=== PATIENT | female | born 1940 | race Caucasian/White ===

== ENCOUNTER 2018-04-19 16:54 | Outpatient (CLI) | payer MEDICARE, SELFPAY ==
[2018-04-22 11:07] LABS: SS-B (La) Ab, IgG 5.5 Units (<20)
[2018-04-22 11:08] LABS: SS-A Antibody 4.9 Units (<20)
== END 2018-04-19 17:14 ==
PROVIDERS: PCP Family Medicine; Visit Provider Otolaryngology Otolaryngology/Facial Plastic Surgery
DX: R68.2 Dry mouth, unspecified (principal); K12.0 Recurrent oral aphthae; R13.12 Dysphagia, oropharyngeal phase
CPT/HCPCS: 36415; 86235

== ENCOUNTER 2018-04-26 00:20 | Outpatient (CLI) | payer MEDICARE, SELFPAY ==
[2018-04-26] MEDS: Barium Sulfate 60% W/V 355 ML BTL PO (12:26)
== END 2018-04-26 00:40 ==
PROVIDERS: PCP Family Medicine; Visit Provider Physician Assistant
DX: R13.10 Dysphagia, unspecified (principal)
CPT/HCPCS: 74220; J3490

== ENCOUNTER 2018-04-26 02:45 | Outpatient (CLI) | payer MEDICARE, OTHER, SELFPAY | END 2018-04-26 03:05 | PROVIDERS: PCP Family Medicine | DX: R13.11 Dysphagia, oral phase (principal) | CPT/HCPCS: 92611; G8996; 74220; J3490 ==

== ENCOUNTER 2018-08-06 16:51 | Emergency (ER) | payer MEDICARE, OTHER, SELFPAY ==
[2018-08-06 16:57] VITALS: BP 134/92; PULSE 67; RESP 18; TEMP 36.7; O2SAT 100
--- NOTE | 2018-08-06 17:26 | ED.GENADUL_ITS ---
Discharge Plan Disposition Patient Disposition: HOME Condition: Improving Discharge Details Chief Complaint: RespSymp Clinical Impression: Acute bronchitis Primary Care Provider: Dylan Kumari ED Provider: Michaelle Grider Home Meds and New Rx's Prescriptions: New prednisone 20 mg tablet 20 mg PO DAILY Qty: 9 RF: 0 doxycycline hyclate 100 mg tablet 100 mg PO BID 5 Days Qty: 10 RF: 0 Continued famciclovir 500 mg tablet 500 mg PO Q8H Qty: 21 RF: 0 Shingrix Adjuvant Component-PF suspension 0.5 ml IM DAILY Qty: 0.5 RF: 1 cyclobenzaprine 10 MG tablet 10 mg PO TID PRN Qty: 30 RF: 5 loratadine 10 MG tablet,disintegrating 10 mg PO PRN PRNQty: 30 RF: 11 cyanocobalamin (vitamin B-12) [Vitamin B-12] 1,000 MCG tablet 1,000 mcg PO DAILY RF: 0 methylphenidate HCl 20 MG tablet 20 mg PO BID PRN Qty: 60 RF: 0 ranitidine HCl 150 MG capsule 150 mg PO PRN PRNQty: 180 RF: 3 esomeprazole magnesium [Nexium] 40 MG capsule,delayed release(DR/EC) 40 mg PO DAILY RF: 0 Narcan 4 MG spray,non-aerosol 4 mg NS PRN Qty: 2 RF: 0 amitriptyline 25 MG tablet 25 - 100 mg PO HS PRNQty: 120 RF: 11 fluoxetine [Prozac] 20 MG capsule 20 mg PO DAILY Qty: 90 RF: 3 tramadol 50 MG tablet 50 mg PO BID PRNQty: 30 RF: 0 estradiol [Estrace] 42.5 GM cream 1 soham VG AD 30 Days Qty: 1 RF: 5 zolpidem 10 mg tablet 10 mg PO HS PRN (Reason: insomnia) Qty: 15 RF: 2 acetaminophen [Tylenol] 325 MG tablet 650 mg PO Q4H PRN PRNRF: 0 gabapentin 300 MG capsule 300 mg PO BID PRN PRNRF: 0 Discharge Instructions Instructions: Acute Bronchitis (ED) Additional Instructions: Take the steroids and antibiotics as directed until finished. Use the albuterol inhaler as needed and directed for shortness of breath or wheezing. Follow-up with your primary care doctor next week. Return immediately to the emergency department with any worsening or new concerning symptoms. Discharge Data Discharge Physician: Michaelle Grider Medical Decision Making 77yo F with a history of COPD and former tobacco smoker who quit 30 years ago who presents with cough with yellow and green sputum and shortness of breath for the past 4 days. Denies fever. Admits to significant fatigue but states she has a history of fibromyalgia and that this contributes to her fatigue when she is sick. Vitals within normal limits. Patient appears nontoxic. She is speaking in full sentences. No acute respiratory distress. Normal ENT exam. Minimal scattered wheezing throughout. No rhonchi. No lower extremity edema. Differential diagnosis includes viral syndrome, influenza, pneumonia, COPD exacerbation. Patient initially declined a chest x-ray but now is agreeable. Will obtain a chest x-ray, give DuoNeb, p.o. prednisone and reassess. Patient initially was given a dose of doxycycline when she refused a chest x- ray. 1900 --patient feels better after neb treatment. Chest x-ray negative. She did admit to some nausea after neb treatment and was given a dose of Zofran and this improved. Patient feels good to go home. She states she is unsure if she can get to the pharmacy tonight or early tomorrow. Will send home with a dose of prednisone for tomorrow as well as 2 tabs of doxycycline. She was also given an inhaler for home. She is instructed to drink plenty of fluids, get plenty of rest, follow up with her primary care doctor return here at any time if worse Medical Records Medical records reviewed: Yes I reviewed the patient's medical records. Imaging Data Radiologic Study: Radiologist's impression: XR Chest, 2 Views EXAM DATE/TIME: 08/06/2018 6:00 PM FINDINGS: Lungs: Unremarkable. No consolidation. Pleural space: Unremarkable. No pleural effusion. No pneumothorax. Heart/Mediastinum: Unremarkable. No cardiomegaly. Bones/joints: Osseous structures are stable IMPRESSION: No acute process HPI General Mode of arrival: ambulatory . Date/Time Provider Initiated Documentation: 08/06/18 17:11 . Limitations to Documentation: no limitations . Information obtained by: patient . HPI Narrative: Patient is a 77-year-old female with a history of COPD and former tobacco smoker quit 30 years ago who presents with cough with yellow and green sputum and intermittent shortness of breath over the past 4 days. Patient states she traveled on a plane from [place] 5 days ago. She denies any leg pain or swelling. She states she went to an urgent care a few days ago and was given a prescription for cough medication without relief. She admits to significant fatigue but states she has a history of fibromyalgia which she thinks contributes to this. She denies any fever, chest pain, recent antibiotics or urinary symptoms. She states she has been eating and drinking normally. Related Data Home Medications Medication Instructions Recorded Confirmed cyclobenzaprine 10 mg PO TID PRN #30 tab-cap 11/05/14 08/06/18 loratadine 10 mg PO PRN PRN #30 tab-cap 05/01/15 08/06/18 acetaminophen [Tylenol] 650 mg PO Q4H PRN PRN tab 04/01/16 08/06/18 cyanocobalamin (vitamin B-12) 1,000 mcg PO DAILY 08/26/16 08/06/18 [Vitamin B-12] methylphenidate HCl 20 mg PO BID PRN #60 tab-cap 08/26/16 08/06/18 ranitidine HCl 150 mg PO PRN PRN #180 tab-cap 08/26/16 08/06/18 Narcan 4 mg NS PRN #2 spray 01/23/17 05/14/18 esomeprazole magnesium [Nexium] 40 mg PO DAILY tab-cap 01/23/17 08/06/18 amitriptyline 25 - 100 mg PO HS PRN #120 tab-cap 08/20/17 08/06/18 fluoxetine [Prozac] 20 mg PO DAILY #90 tab-cap 08/20/17 08/06/18 tramadol 50 mg PO BID PRN #30 tab-cap 11/23/17 08/06/18 estradiol [Estrace] 1 soham VG AD 30 Days #1 tube 12/21/17 08/06/18 adjuvant AS01B (PF), component 0.5 ml IM DAILY #0.5 ml 05/14/18 05/14/18 vial 1 of 2 intramuscular suspension famciclovir 500 mg tablet 500 mg PO Q8H #21 tab 05/14/18 05/14/18 zolpidem 10 mg tablet 10 mg PO HS PRN #15 tab 06/21/18 08/06/18 doxycycline hyclate 100 mg PO BID 5 Days #10 tab 08/06/18 gabapentin 300 mg PO BID PRN PRN 08/06/18 prednisone 20 mg PO DAILY #9 tab 08/06/18 Previous Rx's Medication Instructions Recorded acetaminophen [Tylenol] 650 mg PO Q4H PRN PRN tab 04/01/16 Narcan 4 mg NS PRN #2 spray 01/23/17 fluoxetine [Prozac] 20 mg PO DAILY #90 tab-cap 08/20/17 estradiol [Estrace] 1 soham VG AD 30 Days #1 tube 12/21/17 adjuvant AS01B (PF), component 0.5 ml IM DAILY #0.5 ml 05/14/18 vial 1 of 2 intramuscular suspension famciclovir 500 mg tablet 500 mg PO Q8H #21 tab 05/14/18 zolpidem 10 mg tablet 10 mg PO HS PRN #15 tab 06/21/18 doxycycline hyclate 100 mg PO BID 5 Days #10 tab 08/06/18 prednisone 20 mg PO DAILY #9 tab 08/06/18 Allergies Allergy/AdvReac Type Severity Reaction Status Date / Time No Known Allergies Allergy Unverified 08/06/18 17:02 General Stated Complaint: RespSymp DEJUAN: 4 Review of Systems Review of Systems All systems reviewed & are unremarkable except as noted in HPI and below Constitutional Reports as per HPI, Denies chills, Reports fatigue and Denies fever(s) Eyes Denies blurry vision ENT Denies dizziness, Denies sore throat and Denies throat swelling Cardiovascular Denies chest pain and Reports dyspnea Respiratory Reports cough and Reports dyspnea Gastrointestinal Denies abdominal pain, Denies diarrhea and Denies vomiting Genitourinary Denies hematuria and Denies dysuria Musculoskeletal Denies back pain and Denies numbness Integumentary/Breasts Denies lesions and Denies rash Neurologic Denies dizziness, Denies focal weakness and Denies numbness Endocrine Reports fatigue Allergic/Immunologic Denies throat swelling [facility] Medical History COPD (chronic obstructive pulmonary disease) (Chronic) Chronic pain syndrome (Chronic) Irritable bowel syndrome (Chronic) Obstructive sleep apnea (Chronic) Surgical History History of total knee arthroplasty (Acute) History of cataract surgery (Chronic) EGD - MAC (01/18/15) Extraction of cataract LEFT TKA Family History Mother No problems noted. Social History Smoking/Tobacco Use Status: Former Tobacco Use Drug use: Rarely Do you feel safe at home: Yes Do you feel safe in your relationship?: Yes Exam Const General: cooperative and no acute distress Orientation: alert and awake HENMT Head: normal to inspection Ears: hearing grossly normal bilaterally, external ears normal and TM's normal bilaterally General nose exam: external nose normal Face and sinus: normal facial exam Mouth: oral mucosae normal Teeth and gingiva: dentition normal Throat: posterior oropharynx normal Eyes General: appearance normal, both eyes and all related structures Neck Neck: normal visual inspection Lymphatic: no lymphadenopathy noted Chest Chest: normal inspection of the chest Resp Effort & Inspection: normal respiratory effort, able to speak in complete sentences and cough Quality of cough: productive Auscultation: wheezes scattered wheezes Cardio Rate: regular rate Rhythm: regular rhythm GI Inspection: normal to inspection Palpation: soft, not firm, no guarding, no hepatosplenomegaly, no masses and nontender Auscultation: normal bowel sounds Skin General skin exam: no rashes or lesions noted Neuro General: alert and awake Cognition: normal cognition Speech: speech normal Gait: normal gait Motor: muscle tone normal throughout Sensory Exam: no sensory deficits noted Extrem General: normal to inspection, full ROM and no edema Psych Appearance: grossly normal Mental Status: mental status grossly normal Speech and Movement: speech and movement normal Affect: normal affect Thought Process: normal Course Vital Signs Temperature 98.1 F 08/06/18 16:57 Pulse 67 08/06/18 16:57 Respiratory Rate 18 08/06/18 16:57 Blood Pressure 134/92 H 08/06/18 16:57 Pulse Oximetry 100 08/06/18 16:57 Temperature 98.1 F 08/06/18 16:57 Pulse 67 08/06/18 16:57 Respiratory Rate 18 08/06/18 16:57 Respiratory Effort 08/06/18 17:01 Blood Pressure 134/92 H 08/06/18 16:57 Pulse Oximetry 100 08/06/18 16:57 Oxygen Delivery Method Room Air 08/06/18 16:57 Oxygen Flow Rate 0 08/06/18 16:57 Pain Level 3 08/06/18 16:57
[2018-08-06] MEDS: Doxycycline Hyclate 100 MG CAP PO (17:54)
[2018-08-06] MEDS: predniSONE 20 MG TAB 60 MG PO ×2 (17:54→19:30)
[2018-08-06] MEDS: Albuterol/Ipratropium 3 ML UPD VIAL UPD (17:54)
--- NOTE | 2018-08-06 17:59 | DI.RAD_ITS ---
SYMPTOM/DIAGNOSIS: COUGH, SOB RPA AND LATERAL CHEST: The heart is normal in size. The lungs are clear. The mediastinal structures and pleura appear intact. CONCLUSION: Normal chest.
[2018-08-06] MEDS: Ondansetron O.D.T. 4 MG TABEF PO (18:47)
--- NOTE | 2018-08-06 18:48 | DI.VRAD_ITS ---
EXAM: XR Chest, 2 Views EXAM DATE/TIME: 08/06/2018 6:00 PM CLINICAL HISTORY: 77 years old, female; Signs and symptoms; Cough TECHNIQUE: Imaging protocol: XR of the chest, 2 views. COMPARISON: CR CHEST COMPLETE MULTI VIEW 01/09/2016 2:35 PM FINDINGS: Lungs: Unremarkable. No consolidation. Pleural space: Unremarkable. No pleural effusion. No pneumothorax. Heart/Mediastinum: Unremarkable. No cardiomegaly. Bones/joints: Osseous structures are stable IMPRESSION: No acute process Dictated and Authenticated by: Smita Rodgers MD. Ordering:STEVAN Braswell MD
[2018-08-06] MEDS: Albuterol HFA 8 GM 60 PUFF INH IH (19:29)
[2018-08-06] MEDS: Doxycycline Hyclate 100 MG CAP 200 MG PO (19:30)
== END 2018-08-06 19:46 | disposition home or self-care (01) ==
PROVIDERS: Emergency Provider Physician Assistant; PCP Family Medicine
DX: J20.9 Acute bronchitis, unspecified (principal); Z87.891 Personal history of nicotine dependence
CPT/HCPCS: 94640; 99283; 71046; J7512; J7620

== ENCOUNTER 2018-08-08 17:19 | Emergency (ER) | payer MEDICARE, SELFPAY ==
[2018-08-08 17:21] VITALS: BP 140/91; PULSE 80; RESP 18; TEMP 36.5; O2SAT 97
[2018-08-08] MEDS: Doxycycline Hyclate 100 MG CAP PO (17:29)
[2018-08-08] MEDS: predniSONE 40 MG, predniSONE 10 MG 50 MG PO (17:30)
--- NOTE | 2018-08-08 17:30 | ED.GENADUL_ITS ---
Discharge Plan Disposition Patient Disposition: HOME Condition: Good Discharge Details Chief Complaint: RespSymp Clinical Impression: Medicine refill Primary Care Provider: Dylan Kumari ED Provider: Ruiz Sams Home Meds and New Rx's Prescriptions: No Action famciclovir 500 mg tablet 500 mg PO Q8H Qty: 21 RF: 0 Shingrix Adjuvant Component-PF suspension 0.5 ml IM DAILY Qty: 0.5 RF: 1 cyclobenzaprine 10 MG tablet 10 mg PO TID PRN Qty: 30 RF: 5 loratadine 10 MG tablet,disintegrating 10 mg PO PRN PRNQty: 30 RF: 11 cyanocobalamin (vitamin B-12) [Vitamin B-12] 1,000 MCG tablet 1,000 mcg PO DAILY RF: 0 methylphenidate HCl 20 MG tablet 20 mg PO BID PRN Qty: 60 RF: 0 ranitidine HCl 150 MG capsule 150 mg PO PRN PRNQty: 180 RF: 3 esomeprazole magnesium [Nexium] 40 MG capsule,delayed release(DR/EC) 40 mg PO DAILY RF: 0 Narcan 4 MG spray,non-aerosol 4 mg NS PRN Qty: 2 RF: 0 amitriptyline 25 MG tablet 25 - 100 mg PO HS PRNQty: 120 RF: 11 fluoxetine [Prozac] 20 MG capsule 20 mg PO DAILY Qty: 90 RF: 3 tramadol 50 MG tablet 50 mg PO BID PRNQty: 30 RF: 0 estradiol [Estrace] 42.5 GM cream 1 soham VG AD 30 Days Qty: 1 RF: 5 zolpidem 10 mg tablet 10 mg PO HS PRN (Reason: insomnia) Qty: 15 RF: 2 acetaminophen [Tylenol] 325 MG tablet 650 mg PO Q4H PRN PRNRF: 0 gabapentin 300 MG capsule 300 mg PO BID PRN PRNRF: 0 prednisone 20 mg tablet 20 mg PO DAILY Qty: 9 RF: 0 doxycycline hyclate 100 mg tablet 100 mg PO BID 5 Days Qty: 10 RF: 0 Discharge Instructions Additional Instructions: Take medication as directed. Continue your prescriptions as directed. If you notice any worsening of your symptoms, or any new symptoms such as vomiting, diarrhea, fever, chills, shortness of breath, chest pain, numbness, weakness, or fainting , please return immediately to the emergency department for reevaluation. Please follow up with your primary care provider as soon as possible for reassessment and reevaluation. As always, it was a pleasure participating in your medical care today. Referrals: Dylan Kumari [Primary Care Provider] - Medical Decision Making This is a 77-year-old female who presents today for evaluation of medication refill. She had a benign-appearing chest x-ray 2 days ago, and was given a prescription for doxycycline and prednisone. Unfortunately she did not fill her scripts today because she slept in is coming to the ER for a dose of her medications. She has been provided with prednisone and doxycycline here in the ED, and we have encouraged her to fill her scripts tomorrow morning. Vital signs are stable and reassuring. She notes improvement of her symptoms. No other complaints. I have extensively reviewed the treatment plan and discharge instructions with the patient. I have addressed all patient concerns at this time. The patient was made aware of what symptoms to monitor for that would warrant a return to the emergency department. Discussed the plan with the patient, they demonstrate verbal understanding and agreement with our assessment and plan at this time. HPI General Date/Time Provider Initiated Documentation: 08/08/18 17:20 . HPI Narrative: This is a 77-year-old female who was recently seen and assessed here 2 days ago, she had a cough noted at that time with a relatively benign appearing chest x-ray. She was eventually discharged, with prescription for doxycycline and prednisone. She was given the first dose to go home with, in case she was unable to get the prescription filled. She used those doses and was supposed to get her prescription filled today. Unfortunately she slept in until the pharmacy is closed, and was again unable to fill the prescription. She presents today for a dose of her medications. She denies any other change in her complaints. Cough is been improving. She denies any chest pain or significant shortness of breath. No other modifying factors Related Data Home Medications Medication Instructions Recorded Confirmed cyclobenzaprine 10 mg PO TID PRN #30 tab-cap 11/05/14 08/06/18 loratadine 10 mg PO PRN PRN #30 tab-cap 05/01/15 08/06/18 acetaminophen [Tylenol] 650 mg PO Q4H PRN PRN tab 04/01/16 08/06/18 cyanocobalamin (vitamin B-12) 1,000 mcg PO DAILY 08/26/16 08/06/18 [Vitamin B-12] methylphenidate HCl 20 mg PO BID PRN #60 tab-cap 08/26/16 08/06/18 ranitidine HCl 150 mg PO PRN PRN #180 tab-cap 08/26/16 08/06/18 Narcan 4 mg NS PRN #2 spray 01/23/17 05/14/18 esomeprazole magnesium [Nexium] 40 mg PO DAILY tab-cap 01/23/17 08/06/18 amitriptyline 25 - 100 mg PO HS PRN #120 tab-cap 08/20/17 08/06/18 fluoxetine [Prozac] 20 mg PO DAILY #90 tab-cap 08/20/17 08/06/18 tramadol 50 mg PO BID PRN #30 tab-cap 11/23/17 08/06/18 estradiol [Estrace] 1 soham VG AD 30 Days #1 tube 12/21/17 08/06/18 adjuvant AS01B (PF), component 0.5 ml IM DAILY #0.5 ml 05/14/18 05/14/18 vial 1 of 2 intramuscular suspension famciclovir 500 mg tablet 500 mg PO Q8H #21 tab 05/14/18 05/14/18 zolpidem 10 mg tablet 10 mg PO HS PRN #15 tab 06/21/18 08/06/18 doxycycline hyclate 100 mg PO BID 5 Days #10 tab 08/06/18 gabapentin 300 mg PO BID PRN PRN 08/06/18 prednisone 20 mg PO DAILY #9 tab 08/06/18 Previous Rx's Medication Instructions Recorded acetaminophen [Tylenol] 650 mg PO Q4H PRN PRN tab 04/01/16 Narcan 4 mg NS PRN #2 spray 01/23/17 fluoxetine [Prozac] 20 mg PO DAILY #90 tab-cap 08/20/17 estradiol [Estrace] 1 soham VG AD 30 Days #1 tube 12/21/17 adjuvant AS01B (PF), component 0.5 ml IM DAILY #0.5 ml 05/14/18 vial 1 of 2 intramuscular suspension famciclovir 500 mg tablet 500 mg PO Q8H #21 tab 05/14/18 zolpidem 10 mg tablet 10 mg PO HS PRN #15 tab 06/21/18 doxycycline hyclate 100 mg PO BID 5 Days #10 tab 08/06/18 prednisone 20 mg PO DAILY #9 tab 08/06/18 Allergies Allergy/AdvReac Type Severity Reaction Status Date / Time No Known Allergies Allergy Unverified 08/08/18 17:28 General DEJUAN: 4 Review of Systems Review of Systems All systems reviewed & are unremarkable except as noted in HPI and below PFSH Social History Smoking/Tobacco Use Status: Former Tobacco Use Drug use: Rarely Do you feel safe at home: Yes Do you feel safe in your relationship?: Yes Exam Narrative Exam Narrative: 1.Const: Well-nourished, Well-developed, appearing stated age 2.Eyes: PERRL, no conjunctival injection, and symmetrical lids. 3.ENT: Atraumatic external nose and ears. Moist MM. Neck: Symmetric, trachea midline, No thyromegaly. 4.CVS: +S1/S2, No murmurs or gallops. Peripheral pulses 2+ and equal in all extremities. Brisk capillary refill in all extremities. 5.RESP: Unlabored respiratory effort. Clear to auscultation bilaterally. No wheezes rales or rhonchi 6.GI: Soft, Nontender/Nondistended, No hepatosplenomegaly. No guarding or rebound. 7.MSK: Normocephalic/Atraumatic, Extremities w/o deformity or ttp No cyanosis or clubbing, Normal movement of all extremities 8.Skin: Warm, Dry. No rashes or lesions. 9.Neuro: metaphysician II-XII grossly intact. Sensation grossly intact, no focal neurologic deficits. 10.Psych: (AAO) x3. Appropriate mood and affect
== END 2018-08-08 17:25 | disposition home or self-care (01) ==
LOC: ER 17:26
PROVIDERS: Emergency Provider Student in an Organized Health Care Education/Training Program; PCP Family Medicine
DX: J20.9 Acute bronchitis, unspecified (principal)
CPT/HCPCS: 99283; J7512

== ENCOUNTER 2018-10-18 07:15 | Outpatient (CLI) | payer MEDICARE, OTHER, SELFPAY ==
--- NOTE | 2018-10-18 06:57 | MERGEMPI_ITS ---
*[facility]* *[facility]* [address] [place] [address] Myocardial Perfusion Imaging - SPECT Leo protocol Date of study: 10/18/2018 *PATIENT PRESENTATION* Height: 161.3cm (63.5in) Blood Pressure: Weight: 79.5kg (175lb) BSA: 1.92m^2 Referring physician: Juan Lacey MD Ordering physician: Dylan Kumari Impressions: Low risk scan: Small apical ischemia with preserved LV systolic function (by inspection). Trial medical therapy for CAD reasonable. Summary: 1. Myocardial perfusion imaging: There is a small sized, moderately intense, partially reversible defect involving the lateral apex. This suggests small ischemia in the distribution of left anterior descending or left circumflex coronary artery. Overall ischemia: small. 2. The calculated left ventricular ejection fraction after stress: 41%, by inspection 60%. 3. Stress: The target heart rate was achieved. Indication: R07.9. History: REASON FOR VISIT: PT REPORTS INCREASED SHORTNESS OF BREATH, PARTICULARLY OVER THE LAST 6 MONTHS. PT DENIES EVER EXPERIENCING CHEST PAINS OR CHEST PRESSURE. PMH: COPD. Risk factors: Obesity. Imaging Technique: Protocol: Leo protocol. Acquisition: Gated SPECT; 1 day - rest/stress. The patient was imaged in the supine position. Attenuation correction used. Isotope administration: - Rest. Tc[99m]-sestamibi. Dose: 10.3mCi. Injection time: 11:30 AM. Injection to stress time: 00:45. - Stress. Tc[99m]-sestamibi. Dose: 30.3mCi. Injection time: 01:55 PM. 1-2 min before end of exercise Stress protocol: + +---+ + !Stage !HR !BP (mmHg) ! + +---+ + !Baseline supine !59 !150/86 (107)! + +---+ + !Baseline standing !72 !156/82 (107)! + +---+ + !Stage I; 1.7mph, 10degrees; 3 min!118!186/80 (115)! + +---+ + !Peak stress !126! ! + +---+ + !Recovery; 2 min !76 !160/70 (100)! + +---+ + !Recovery; 4 min !77 !152/80 (104)! + +---+ + !Recovery; 6 min !69 !148/72 (97) ! + +---+ + * Stress results: Maximal heart rate during stress was 126bpm (88% of maximal predicted heart rate). The maximal predicted heart rate was 144bpm. The target heart rate was achieved. The rate-pressure product for the peak heart rate and blood pressure was 29342zc Hg/min. Stress ECG: TREADMILL PORTION OF STRESS TEST ENDED IN 3 MINUTES & 14 SECONDS DUE TO SHORTNESS OF BREATH NORMAL HEART RATE AND BLOOD PRESSURE RESPONSE TO EXERCISE MAX HR = 126 % OF TARGET = 87 OCCASIONAL PVC APPROXIMATE METS ACHIEVED = 4.77 NO ANGINA NO SIGNIFICANT ST SEGMENT CHANGES MILDLY DIMINISHED FUNCTIONAL CAPACITY FOR EXERCISE. Myocardial perfusion: Imaging information: gated. There is a small sized, moderately intense, partially reversible defect involving the lateral apex. This suggests small ischemia in the distribution of left anterior descending or left circumflex coronary artery. Overall ischemia: small. Ventricular Function (Wall Motion): The calculated left ventricular ejection fraction after stress: 41%, by inspection 60%. Study data: Juan Lacey MD supervised and was readily available during the procedure. This study was interpreted by [facility]. Study status: Routine. Consent: The risks, benefits, and alternatives to the procedure were explained to the patient and informed consent was obtained. Procedure: Initial setup. A baseline ECG was recorded. Surface ECG leads and manual cuff blood pressure measurements were monitored. Heart sounds: Normal. Lung sounds: Normal. Treadmill exercise testing was performed using the Leo protocol. Study completion: All catheters inserted during the procedure were removed. The patient tolerated the procedure well and was discharged from the lab. Discharge: The patient left the laboratory in stable condition. Birthdate: Patient birthdate: 1940. Sex: Gender: female. Study date: Study date: 10/18/2018. Study time: 00:01 AM. Electronically signed by Juan Lacey MD 10/18/2018 18:14
== END 2018-10-18 07:35 ==
PROVIDERS: PCP Family Medicine; Visit Provider Family Medicine
DX: R06.02 Shortness of breath (principal); R94.30 Abnormal result of cardiovascular function study, unspecified
CPT/HCPCS: 78452; 93016; 93018; 93017

== ENCOUNTER 2019-05-20 13:07 | Outpatient (CLI) | payer MEDICARE, SELFPAY ==
[2019-05-20 14:40] LABS: HCT 38.8 % (36.0-46.0); HGB 12.9 g/dL (12.0-15.5); Mean Corp. HGB Concentration 33.2 g/dL (32.0-36.0); Mean Corpuscular Hemoglobin 30.8 pg (27.0-33.0); Mean Corpuscular Volume 92.6 fL (80-95); Mean Platelet Volume 10.2 fL (8.0-11.0); Platelet Count 262 x1000/uL (130-400); RBC 4.19 m/cumm (4.00-5.20); RBC Distribution Width 14.9 % (11.7-14.6); White Blood Cell Count 5.37 k/cumm (4.4-10.8)
[2019-05-20 15:47] LABS: Anion Gap 10.4 mmol/L (3-11); BUN 21 mg/dL (7-18); CO2 24.6 mmol/L (21.0-32.0); CREATININE 0.65 mg/dL (0.55-1.02); Chloride 104 mmol/L (98-107); Glucose 94 mg/dL (74-106); Potassium 4.4 mmol/L (3.5-5.1); Sodium 139 mmol/L (136-145)
== END 2019-05-20 13:27 ==
PROVIDERS: PCP Nurse Practitioner; Visit Provider Obstetrics & Gynecology Gynecology
DX: N90.7 Vulvar cyst; Z01.818 Encounter for other preprocedural examination; Z01.812 Encounter for preprocedural laboratory examination
CPT/HCPCS: 36415; 80048; 85027; 86850; 86900; 86901

== ENCOUNTER 2019-05-25 08:07 | Day surgery (SDC) | payer MEDICARE, SELFPAY ==
--- NOTE | 2019-05-16 10:31 | NUR.NOTE ---
05/16/2019: pt. no show for visit appointment on 05/13/2019, [employer] Gr[employer] Sagrario attempted call pt., no answer. [facility] informed of no show, spoke with Jennifer Brown, informed her patient had been moved from 1000 to 1130 slot, Jennifer stated she will attempt to contact her again. Nursing Note:
[2019-05-20 13:40] VITALS: BP 106/71; PULSE 54; RESP 16; TEMP 36.7; O2SAT 97
--- NOTE | 2019-05-24 21:23 | W.PM.HP.N ---
Assessment and Plan Assessment and plan (1) Pre-op exam: Status: Acute Assessment and plan: Consent obtained for excision of R vulva mass. Discussed risk of bleeding, infection, damage to vagina, surrounding structures including uretha, blood vessels and nerves. Questions were answered. (2) Mass of vulva: Status: Acute History of Present Illness History of Present Illness Chief Complaint: R vulvar lump Narrative: Pt is a 78yo G0 postmenopausal female previously seen in April 2019 at the request of IRON Hinkle for R vulva mass that has been present for ~ 2 mo. Pt states that the area has become more uncomfortable since her initial exam in Feb 2019. I had the opportunity to examine the patient and consent her for surgery on Apr 26, 2019. Because of scheduling issues the surgery was postponed until this month. GynHx . c/o vaginal irritation and a lump to the L of her urethra. Longstanding hx of vaginal Estrace for vaginal dryness. 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 Rx with topical steroid 04/13/19. Continued sx. increasing pressure at site. [facility] Medical History (Updated 05/25/19 @ 09:41 by Peg Cardoso MD) Chronic pain syndrome (Chronic) COPD (chronic obstructive pulmonary disease) (Chronic) Irritable bowel syndrome (Chronic) Mass of vulva (Acute) R david labia. 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 Surgical History EGD - MAC (01/18/15) DR.CHRIS ADORNO Extraction of cataract 08/22/15; LEFT EYE 09/05/15; RIGHT EYE History of appendectomy (Chronic) History of cataract surgery (Chronic) History of colonoscopy (Chronic) History of total knee arthroplasty (Acute) LEFT TKA 04/28/16 Social History Smoking/Tobacco Use Status: Former Tobacco Use Alcohol Intake: current Alcohol Intake frequency: 0-2 drinks per day Alcohol type: hard liquor Drug use: Never Do you feel safe at home: Yes Do you feel safe in your relationship?: Yes Female Reproductive History Menstrual Menopause type: natural (48yo) History History 0 Para Hx # Term Pregnancies Multiple births Hx # Pregnancies Ectopic pregnancies AB induced Hx Number of Living Children AB spontaneous Meds Home Medications and Allergies Home Medications Medication Instructions Recorded Confirmed Type acetaminophen [Tylenol] 650 mg PO Q4H PRN PRN tab 04/01/16 05/25/19 Rx cyanocobalamin (vitamin B-12) 1,000 mcg PO DAILY 08/26/16 05/25/19 History [Vitamin B-12] methylphenidate HCl [Ritalin] 20 mg PO BID PRN #60 tab-cap 08/26/16 05/25/19 History ranitidine HCl 150 mg PO PRN PRN #180 tab-cap 08/26/16 05/25/19 History estradiol [Estrace] 1 soham VG AD 30 Days #1 tube 12/21/17 05/25/19 Rx adjuvant AS01B (PF)vial 1 of 2 0.5 ml IM DAILY #0.5 ml 05/14/18 05/25/19 Rx adjuvant AS01B (PF)vial 1 of 2 0.5 ml IM DAILY #0.5 ml 08/13/18 05/25/19 Rx amitriptyline 25 mg tablet 25 - 100 mg PO HS PRN #120 tab-cap 10/06/18 05/25/19 Rx esomeprazole magnesium 40 mg 40 mg PO DAILY #90 tab-cap 10/06/18 05/25/19 Rx capsule,delayed release loratadine 10 mg disintegrating 10 mg PO PRN #30 tab-cap 10/06/18 05/25/19 Rx tablet naloxone 4 mg/actuation nasal spray 1 spray NIRAV ONCE PRN #2 each 10/06/18 05/25/19 Rx tramadol 50 mg tablet 50 mg PO BID PRN #20 tab 02/21/19 05/25/19 Rx halobetasol propionate 0.05 % 1 applic TP DAILY #15 gm 04/13/19 05/25/19 Rx topical ointment erythromycin 5 mg/gram (0.5 %) eye 0.5 inch OP TID #3.5 gm 05/17/19 05/25/19 Rx ointment metoprolol succinate 50 mg 50 mg PO DAILY #30 tab 05/17/19 05/25/19 Rx tablet,extended release 24 hr citalopram [Celexa] 20 mg PO DAILY 05/20/19 05/25/19 History triamcinolone acetonide [Oralone] 1 applic DT BID-TID PRN 05/25/19 05/25/19 History zolpidem [Ambien] 10 mg PO HS PRN 05/25/19 05/25/19 History Allergies Allergy/AdvReac Type Severity Reaction Status Date / Time No Known Allergies Allergy Verified 05/20/19 13:38 Exam Const General: no acute distress Nutritional Appearance: average body habitus Orientation: alert, awake and oriented x3 Neck Neck: normal visual inspection Thyroid: thyroid normal Resp Effort & Inspection: normal respiratory effort Auscultation: clear to auscultation bilaterally Cardio Rate: regular rate Rhythm: regular rhythm General: bimanual renal exam normal bilaterally External Female Exam: normal appearance of the urethra, no erythema, externally tender (R labia minora in proximity to the clitoral logan.) on the right, external swelling (only present with palpation), no ecchymosis, No urethral discharge, No lesion of urethra and No bartholin cyst Bimanual Exam- Vagina & Uterus: normal vaginal palpation Back/Spine/Pelvis Back: no CVA tenderness Extrem General: normal to inspection, full ROM and normal capillary refill Psych Appearance: grossly normal Mental Status: mental status grossly normal Results Last Vital Signs Temp 98.1 F 05/20/19 13:40 Pulse 54 L 05/20/19 13:40 Resp 16 05/20/19 13:40 BP 106/71 05/20/19 13:40 Pulse Ox 97 05/20/19 13:40
[2019-05-25 08:17] VITALS: BP 125/70; PULSE 50; RESP 16; TEMP 36.4; O2SAT 96
[2019-05-25] MEDS: Lactated Ringers 1,000 ML 125 ML IV (08:48)
--- NOTE | 2019-05-25 10:45 | VUL_PTH ---
PATIENT: Lesa Metz LOC: [facility] U#:[id number] AGE/SX: 78/F ROOM: RE05/25/[address]: Peg Cardoso : 1940 BED: DIS: 05/25/2019 SPEC #: [id number] RECD: 05/25/19 13:17 STATUS: ELGIN REQ #: [id number] ESME: 05/25/19 10:[address]: Peg Cardoso DEPT: Surgical Specimen RECD BY: Sandra Motley ENTERED: 05/25/19 13:18 SP TYPE: VUL OTHR DR: Cassidy Cornelius, PhD COLORING MACHINE OPERATOR Tissues: 1 - VULVA BIOPSY Procedures: GROSS AND MICRO LEVEL 4 IMMUNOPEROXIDASE STAIN Comments: [id number]
--- NOTE | 2019-05-25 11:20 | W.PM.DSUDISC ---
Discharge Plan Disposition Patient Disposition: HOME Condition: Good Discharge Details Reason For Visit: excision of R labial fibroma Attending Provider: Peg Cardoso Primary Care Provider: Cassidy Cornelius Home Meds and New Rx's Prescriptions: No Action Shingrix Adjuvant Component-PF suspension 0.5 ml IM DAILY Qty: 0.5 RF: 1 Narcan 4 mg/actuation spray,non-aerosol 1 spray NIRAV ONCE PRN (Reason: opioid overdose) Qty: 2 RF: 0 amitriptyline 25 mg tablet 25 - 100 mg PO HS PRN (Reason: insomnia) Qty: 120 RF: 5 esomeprazole magnesium [Nexium] 40 mg capsule,delayed release(DR/EC) 40 mg PO DAILY Qty: 90 RF: 3 loratadine 10 mg tablet,disintegrating 10 mg PO PRN Qty: 30 RF: 4 halobetasol propionate 0.05 % ointment 1 applic TP DAILY Qty: 15 RF: 3 erythromycin 5 mg/gram (0.5 %) ointment 0.5 inch OP TID Qty: 3.5 RF: 0 metoprolol succinate 50 mg tablet extended release 24 hr 50 mg PO DAILY Qty: 30 RF: 11 Shingrix Adjuvant Component-PF suspension 0.5 ml IM DAILY Qty: 0.5 RF: 1 cyanocobalamin (vitamin B-12) [Vitamin B-12] 1,000 MCG tablet 1,000 mcg PO DAILY RF: 0 methylphenidate HCl [Ritalin] 20 MG tablet 20 mg PO BID PRN Qty: 60 RF: 0 ranitidine HCl 150 MG capsule 150 mg PO PRN PRNQty: 180 RF: 3 estradiol [Estrace] 42.5 GM cream 1 soham VG AD 30 Days Qty: 1 RF: 5 tramadol 50 mg tablet 50 mg PO BID PRN (Reason: pain) Qty: 20 RF: 0 citalopram [Celexa] 20 mg Tablet 20 mg PO DAILY RF: 0 triamcinolone acetonide [Oralone] 0.1 % paste 1 applic DT BID-TID PRN (Reason: mouth irritation) RF: 0 zolpidem [Ambien] 10 mg tablet 10 mg PO HS PRN (Reason: insomnia) RF: 0 acetaminophen [Tylenol] 325 MG tablet 650 mg PO Q4H PRN PRNRF: 0 Discharge Instructions Additional Instructions: There may be swelling of the surgery site. You may apply an ice pack to the area for 24hrs as needed. There will be swelling and black and blue at the incision site and there may be spotting on your underclothes for 48hours. Wear a pad to avoid staining your underclothes. You may shower in 24 hours. Pat the area dry, avoid vigorous rubbing when drying. Return to the office after you have returned from your travels. Stand Alone Forms: DSU Post Gynecology Surgery, DSU Post op Instructions Activity:: Activity as Tolerated Shower/Bathe:: 24 hours Diet:: As Tolerated Discharge Orders Discharge Orders: Discharge Order (Routine); Ordered 05/25/19 Ordered By: Peg Cardoso Discharge Data Discharge Date/Time-TO BE ENTERED AT DEPARTURE: 05/25/19 12:35 Discharge Comment: with friend DS: Diagnosis Discharge Diagnosis (1) Mass of vulva: Status: Acute (2) Fibroma: Status: Acute
[2019-05-25 12:02] VITALS: BP 114/54; PULSE 56; RESP 16; TEMP 36.5; O2SAT 97
--- NOTE | 2019-05-25 21:31 | W.PM.OP ---
Date of service: 05/25/19 Time of Service: 21:31 Operative Note Operative Note DATE OF PROCEDURE: 05/25/19 PRE-OP DIAGNOSIS: Right labial mass POST-OP DIAGNOSIS: other (Right labial fibroma) PROCEDURE: Excision of right labial fibroma SURGEON: Peg Cardoso PACKING MACHINE OPERATOR: Marc Henry ANESTHESIA: MAC ESTIMATED BLOOD LOSS: 2 PATHOLOGY: other (Fibroma fragments) COMPLICATIONS: None Patient was transported to: same day Patient's condition: stable Indications: 78-year-old G0 female a palpable right labial mass that became prominent approximate month ago. No associated erythema or discharge. Patient reported some discomfort when washing or wearing close pressed on the area. Findings: Well-circumscribed, firm, 1.5 cm mobile mass within midportion of the right labium minus. Vaginal wall smooth no evidence of [place]'s or Bartholin's gland mass. Procedure Description: Patient was taken to the operating room where she was placed in the dorsal spine position and monitored anesthesia care was administered without difficulty. I had Abril MCINTYRE examined the patient in the operating room to compare our findings from approximately month ago. The impression was that the mass while not appreciably larger than a month ago it had not resolved. She was then placed in the dorsal lithotomy position in yellowfin stirrups prepped and draped in the usual sterile fashion. SCDs were in place. Surgical timeout was performed. The skin over the surface of the mass was infiltrated with quarter percent Marcaine with epinephrine and a scalpel was used to incise 3 cm of epithelium over the mass. It was white firm similar to fibroma in appearance and texture. I was unable to dissected the mass away from the overlying epithelium. The mass was then bivalved with a scalpel and removed in pieces. Cavity with the mass had been was then palpated and found to be smooth with no residual tissue. The cavity was then closed with a pursestring suture of 0 Vicryl x2 and the epithelial skin edges reapproximated with a subcuticular suture of 4-0 Monocryl. The incision was hemostatic at the completion of the procedure. She was placed in the dorsal supine position, awakened from anesthesia and transported recovery area in stable condition. All sponge lap and needles were correct x2.
== END 2019-05-25 12:35 | disposition home or self-care (01) ==
PROVIDERS: PCP Nurse Practitioner; Visit Provider Obstetrics & Gynecology Gynecology
PROC: (CPT 57335; principal; 2019-05-25 09:30)
DX: D21.5 Benign neoplasm of connective and other soft tissue of pelvis (principal); N90.4 Leukoplakia of vulva; J44.9 Chronic obstructive pulmonary disease, unspecified; G47.33 Obstructive sleep apnea (adult) (pediatric)
CPT/HCPCS: 11423; 88305; NC; 88361; J2001; J2250; J2704; J3010

== ENCOUNTER 2019-05-27 14:40 | Outpatient (CLI) | payer MEDICARE, SELFPAY ==
--- NOTE | 2019-05-27 14:54 | PFT_ITS ---
PULMONARY FUNCTION TEST REPORT DATE OF SERVICE: May 27, 2019 REQUESTING PROVIDER: Gisela Cornelius, Ph.D., SURGICAL SERVICES MANAGER Spirometry shows no evidence of obstructive airways disease, no bronchodilator response. Lung volumes show no evidence of restriction. Diffusion capacity mildly reduced, even when corrected to alveolar volume. Airways resistance normal. IMPRESSION: Isolated mild diffusion defect. This constellation of findings can be seen in developing early interstitial lung disease or pulmonary hypertension, as well as in noncommunicating bullous disease. Therefore clinical correlation recommended. JAI/vasquez D/
[2019-05-27] MEDS: Inhaler, Assist Device 1 EACH MC (16:09)
[2019-05-27] MEDS: Albuterol HFA 18 GM 200 PUFF INH IH (16:09)
== END 2019-05-27 15:00 ==
PROVIDERS: PCP Nurse Practitioner; Visit Provider Nurse Practitioner
DX: R06.02 Shortness of breath (principal)
CPT/HCPCS: 94060; 94150; 94726; 94729

== ENCOUNTER 2019-07-21 22:25 | Outpatient (REF) | payer MEDICARE, SELFPAY ==
[2019-07-21 19:51] LABS: *AMPHETAMINES SCREEN URINE Negative (Negative); *BARBITURATES SCREEN URINE Negative (Negative); *BENZODIAZEPINES SCREEN URINE Negative (Negative); Cannabinoids THC Negative (Negative); Cocaine Screen,Urine Negative (Negative); METHADONE URINE SCREEN Negative (Negative); OPIATES URINE SCREEN Negative (Negative)
[2019-07-21 19:58] LABS: Tricyclic Antidepressants Negative (Negative)
== END 2019-07-21 22:45 ==
LOC: NCHCN 22:25
PROVIDERS: PCP Nurse Practitioner; Visit Provider Nurse Practitioner
DX: G89.4 Chronic pain syndrome (principal); Z79.899 Other long term (current) drug therapy
CPT/HCPCS: 80307

== ENCOUNTER 2019-10-10 09:13 | Outpatient (CLI) | payer MEDICARE, SELFPAY | END 2019-10-10 09:33 | PROVIDERS: PCP Family Medicine; Visit Provider Internal Medicine Interventional Cardiology | DX: R94.39 Abnormal result of other cardiovascular function study (principal); R06.09 Other forms of dyspnea | CPT/HCPCS: 93005; 93010 ==

== ENCOUNTER 2019-10-10 14:00 | Outpatient (CLI) | payer MEDICARE, SELFPAY ==
[2019-10-11 12:32] LABS: COVID-19 RT-PCR UVMMC Result Negative (Negative)
== END 2019-10-10 14:20 ==
PROVIDERS: PCP Family Medicine; Visit Provider Family Medicine
DX: J02.9 Acute pharyngitis, unspecified (principal)
CPT/HCPCS: U0003

== ENCOUNTER 2019-10-12 17:06 | Observation (INO) | payer MEDICARE, SELFPAY ==
[2019-10-12] VITALS (56 sets, daily range): BP systolic 123–153; BP diastolic 64–132; PULSE 61–115; RESP 8–46; TEMP 36.7; O2SAT 94–100
--- NOTE | 2019-10-12 17:15 | DI.RAD_ITS ---
EXAM: XR PORTABLE CHEST AP CLINICAL HISTORY: pressure. TECHNIQUE: 2D digital imaging was performed. COMPARISON: CR XR CHEST 2V PA LATERAL from 08/06/2018 FINDINGS: LUNGS: Clear. No pleural abnormality seen. HEART: Normal. MEDIASTINUM: Normal. OTHER FINDINGS: None. IMPRESSION: No acute pulmonary findings. DATA REPOSITORY: RADIATION DOSE DELIVERED:
--- NOTE | 2019-10-12 17:27 | W.ED.GENAD ---
Discharge Plan Disposition Patient Disposition: OTHER Condition: Serious Discharge Details Chief Complaint: Chest Pain Clinical Impression: Exertional dyspnea, Chest tightness Primary Care Provider: Gaurang Kendall ED Provider: Steve Lin Home Meds and New Rx's Prescriptions: No Action esomeprazole magnesium [Nexium] 40 mg capsule,delayed release(DR/EC) 40 mg PO DAILY Qty: 90 RF: 3 loratadine 10 mg tablet,disintegrating 10 mg PO PRN Qty: 30 RF: 4 aspirin [Adult Aspirin Regimen] 81 mg tablet,delayed release (DR/EC) 81 mg PO DAILY Qty: 180 RF: 3 sertraline 50 mg tablet 25 mg PO DAILY Qty: 30 RF: 11 tramadol 50 mg tablet 50 mg PO BID PRN (Reason: pain) Qty: 20 RF: 0 zaleplon 10 mg capsule 20 mg PO HS Qty: 60 RF: 3 estradiol 0.01 % (0.1 mg/gram) cream 1 gm VG .COMPLEX Qty: 42.5 RF: 4 acetaminophen [Tylenol] 325 MG tablet 650 mg PO Q4H PRN PRNRF: 0 Medical Decision Making <RIAZ Martel - Last Filed: 10/12/19 20:25> 78-year-old female with a history of COPD, abnormal perfusion study, presenting at the request of Dr. Lacey for evaluation of ACS, angina. Patient reports sudden abrupt change in her chronic dyspnea, now exertional with a tightness to her chest. She appears well, nontoxic. Will be given 3 baby aspirin and will initiate cardiac work-up. Was able to review the perfusion imaging performed on 10-18-18 which revealed myocardial perfusion imaging, there is a small sized moderately intense partially reversible deficit involving the lateral apex. I did discuss the case and work-up with Dr. Martinez who personally evaluated the patient. WBC of 6.28 hemoglobin 12.5 platelet count 229. INR 1.0. Sodium 137 potassium 3.6, creatinine 0.88 giving a GFR of greater than 60. Initial troponin is less than 0.05. Chest x-ray unremarkable Initial work-up in the ER unremarkable. Patient remains stable. D-dimer pending. Given her age, history of COPD, abnormal perfusion study, evaluation by cardiology today, I will discuss the case with our hospitalist team for admission. Dr. Gonzales evaluated the patient in the ER and is agreeable to admit the patient. D-dimer is 906, slightly elevated when age adjusted. Patient had chest CTA. Medical Records Medical records reviewed: Yes I reviewed the patient's medical records. Imaging Data Radiologic Study: Attestation: I personally reviewed and interpreted this imaging study as follows: Imaging: X-Ray Radiologist's impression: Negative per virtual radiology Lab Data Lab results reviewed: Yes I reviewed the patient's lab results. Lab results narrative: Laboratory Tests Range/Units 10/12/19 10/12/19 10/12/19 18:00 18:00 18:00 WBC (4.4-10.8) k/cumm 6.28 RBC (4.00-5.20) m/cumm 3.91 L Hgb (12.0-15.5) g/dL 12.5 Hct (36.0-46.0) % 36.5 MCV (80-95) fL 93.4 MCH (27.0-33.0) pg 32.0 MCHC (32.0-36.0) g/dL 34.2 RDW (11.7-14.6) % 14.1 Plt Count (130-400) x1000/uL 229 MPV (8.0-11.0) fL 10.3 Immature Gran % % 0.2 Neutrophils % 53.5 Lymphocytes % 30.7 Monocytes % 10.0 Eosinophils % 5.1 Basophils % 0.5 Absolute Neutrophils (1.2-6.7) k/cumm 3.36 Absolute Lymphocytes (1.2-3.4) k/cumm 1.93 Absolute Monocytes (0.11-0.7) k/cumm 0.63 Absolute Eosinophils (0.0-0.7) k/cumm 0.32 Absolute Basophils (0.0-0.2) k/cumm 0.03 PT (9.3-11.0) sec 10.3 INR (0.9-1.1) 1.0 APTT (21.0-31.4) sec 22.7 D-Dimer (<500) ng/mlFEU Sodium (136-145) mmol/L 137 Potassium (3.5-5.1) mmol/L 3.6 Chloride (98-107) mmol/L 103 Carbon Dioxide (21.0-32.0) mmol/L 24.2 Anion Gap (3-11) mmol/L 9.8 BUN (7-18) mg/dL 21 H Creatinine (0.55-1.02) mg/dL 0.88 Estimated GFR/1.73 m2 (mL/min/1.73m2) >= 60.00 Glucose (74-106) mg/dL 107 H Calcium (8.5-10.1) mg/dL 9.0 Magnesium (1.8-2.4) mg/dL 1.6 L Total Bilirubin (0.2-1.0) mg/dL 0.6 AST (15-37) U/L 19 ALT (14-59) U/L 23 Alkaline Phosphatase (46-116) U/L 75 Troponin I (<0.06) ng/mL < 0.05 NT-Pro-B Natriuret Pep (<300) pg/mL 164 Total Protein (6.4-8.2) g/dL 7.2 Albumin (3.4-5.0) g/dL 3.7 Range/Units 10/12/19 18:00 WBC (4.4-10.8) k/cumm RBC (4.00-5.20) m/cumm Hgb (12.0-15.5) g/dL Hct (36.0-46.0) % MCV (80-95) fL MCH (27.0-33.0) pg MCHC (32.0-36.0) g/dL RDW (11.7-14.6) % Plt Count (130-400) x1000/uL MPV (8.0-11.0) fL Immature Gran % % Neutrophils % Lymphocytes % Monocytes % Eosinophils % Basophils % Absolute Neutrophils (1.2-6.7) k/cumm Absolute Lymphocytes (1.2-3.4) k/cumm Absolute Monocytes (0.11-0.7) k/cumm Absolute Eosinophils (0.0-0.7) k/cumm Absolute Basophils (0.0-0.2) k/cumm PT (9.3-11.0) sec INR (0.9-1.1) APTT (21.0-31.4) sec D-Dimer (<500) ng/mlFEU 906 H Sodium (136-145) mmol/L Potassium (3.5-5.1) mmol/L Chloride (98-107) mmol/L Carbon Dioxide (21.0-32.0) mmol/L Anion Gap (3-11) mmol/L BUN (7-18) mg/dL Creatinine (0.55-1.02) mg/dL Estimated GFR/1.73 m2 (mL/min/1.73m2) Glucose (74-106) mg/dL Calcium (8.5-10.1) mg/dL Magnesium (1.8-2.4) mg/dL Total Bilirubin (0.2-1.0) mg/dL AST (15-37) U/L ALT (14-59) U/L Alkaline Phosphatase (46-116) U/L Troponin I (<0.06) ng/mL NT-Pro-B Natriuret Pep (<300) pg/mL Total Protein (6.4-8.2) g/dL Albumin (3.4-5.0) g/dL ECG Data Attestation: I personally reviewed and interpreted this ECG (s) as follows: Interpretation: EKG performed at 1725, sinus rhythm, ventricular rate of 85. No STEMI. EKG interpreted and reviewed with Dr. Martinez <Giuseppe Martinez MD - Last Filed: 10/12/19 18:49> Patient seen, examined, discussed with Mr. Lin. I agree with his assessment and plan. In brief, this is a 78-year-old female who had an abnormal stress test with small area of reversible ischemia in October of last year. She was referred in today by Dr. Lacey after a telehealth visit with him revealed a change in pattern of chest pressure and shortness of breath where it has become more exertional and at times occurring at rest. Patient was referred to the hospital today following consultation with cardiology. I agree with Mr. Lin's plan for further re-stratification of acute coronary syndrome. Please see his note regarding details of the case. HPI <RIAZ Martel - Last Filed: 10/12/19 20:25> General Mode of arrival: ambulatory. Date/Time Provider Initiated Documentation: 10/12/19 17:26. Limitations to Documentation: no limitations. Information obtained by: patient. HPI Narrative: This is a 78-year-old female history of COPD, chronic pain syndrome, irritable bowel syndrome, abnormal myocardial perfusion study, presenting for increased exertional dyspnea and chest tightness. 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 She reports that it has been constant for the last week but increases with exertion. She denies any true pain or pressure. She denies any fever, headache, neck pain, radiation of the tightness, abdominal pain, nausea, vomiting, back pain, pain or swelling in her legs. She was seen today by her computer information science professor, Dr. Lacey, on a telemetry medicine appointment and subsequently sent to the ER for concerning symptoms of ACS, angina, etc. Patient did take a baby aspirin today. She denies recent illness or trauma. Related Data Home Medications Medication Instructions Recorded Confirmed acetaminophen [Tylenol] 650 mg PO Q4H PRN PRN tab 04/01/16 10/12/19 esomeprazole magnesium 40 mg 40 mg PO DAILY #90 tab-cap 10/06/18 10/12/19 capsule,delayed release loratadine 10 mg disintegrating 10 mg PO PRN #30 tab-cap 07/21/19 10/12/19 tablet aspirin 81 mg tablet,delayed 81 mg PO DAILY #180 tab 08/31/19 10/12/19 release sertraline 50 mg tablet 25 mg PO DAILY #30 tab 09/07/19 10/12/19 zaleplon 10 mg capsule 20 mg PO HS #60 cap 09/20/19 10/12/19 tramadol 50 mg tablet 50 mg PO BID PRN #20 tab 09/26/19 10/12/19 estradiol 1 gm VG .COMPLEX #42.5 gm 10/05/19 10/12/19 Previous Rx's Medication Instructions Recorded acetaminophen [Tylenol] 650 mg PO Q4H PRN PRN tab 04/01/16 esomeprazole magnesium 40 mg 40 mg PO DAILY #90 tab-cap 10/06/18 capsule,delayed release loratadine 10 mg disintegrating 10 mg PO PRN #30 tab-cap 07/21/19 tablet aspirin 81 mg tablet,delayed 81 mg PO DAILY #180 tab 08/31/19 release sertraline 50 mg tablet 25 mg PO DAILY #30 tab 09/07/19 zaleplon 10 mg capsule 20 mg PO HS #60 cap 09/20/19 tramadol 50 mg tablet 50 mg PO BID PRN #20 tab 09/26/19 estradiol 1 gm VG .COMPLEX #42.5 gm 10/05/19 Allergies Allergy/AdvReac Type Severity Reaction Status Date / Time No Known Allergies Allergy Verified 10/12/19 17:21 General Stated Complaint: Chest Pain DEJUAN: 2 Review of Systems <RIZA Martel - Last Filed: 10/12/19 20:25> Constitutional Constitutional: Reports fatigue, Denies fever(s) and Denies headache(s) ENT Ears, Nose, Mouth, and Throat: Denies headache(s) and Denies sore throat Cardiovascular Cardiovascular: Denies chest pain and Reports dyspnea Respiratory Respiratory: Denies cough, Reports dyspnea and Denies wheezing Gastrointestinal Gastrointestinal: Denies abdominal pain, Denies nausea and Denies vomiting Genitourinary Genitourinary: Denies dysuria Musculoskeletal Musculoskeletal: Reports back pain (Chronic) Integumentary/Breasts Skin/Breast: Denies rash Neurologic Neurologic: Denies headache(s) Endocrine Endocrine: Reports fatigue Allergic/Immunologic Allergic/Immunologic: Denies wheezing PFSH <RIAZ Martel - Last Filed: 10/12/19 20:25> Medical History Chronic pain syndrome (Chronic) COPD (chronic obstructive pulmonary disease) (Chronic) Exanthem due to varicella (Inactive) Fibroma (Resolved) 1.5 cm mass-left labia minora. Excised without incident. Benign pathology Irritable bowel syndrome (Chronic) Laryngopharyngeal reflux (Inactive) Mass of vulva (Resolved) R david labia. 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 Surgical History EGD - MAC (01/18/15) DR.CHRIS ADORNO Extraction of cataract 08/22/15; LEFT EYE 09/05/15; RIGHT EYE History of appendectomy (Chronic) History of cataract removal with insertion of prosthetic lens (Inactive 09/13/15) History of cataract surgery (Chronic) History of colonoscopy (Chronic) History of esophagogastroduodenoscopy (Inactive) History of total knee arthroplasty (Acute) LEFT TKA 04/28/16 Family History Mother No problems noted. Social History Smoking/Tobacco Use Status: Former Tobacco Use Alcohol Intake: current Alcohol Intake frequency: 0-2 drinks per day Alcohol type: hard liquor Drug use: Never Do you feel safe at home: Yes Do you feel safe in your relationship?: Yes Female Reproductive History Menstrual Menopause type: natural (48yo) History History 0 Para Hx # Term Pregnancies Multiple births Hx # Pregnancies Ectopic pregnancies AB induced Hx Number of Living Children AB spontaneous Exam <RIAZ Martel - Last Filed: 10/12/19 20:25> Const General: cooperative, healthy appearing, comfortable and no acute distress Orientation: alert, awake and oriented x3 HENMT Head: normal to inspection, normocephalic and atraumatic Mouth: moist mucous membranes Throat: posterior oropharynx normal Eyes Conjunctivae: conjunctivae normal Neck Neck: normal visual inspection, full ROM, trachea midline, supple and nontender Resp Effort & Inspection: normal respiratory effort and able to speak in complete sentences Auscultation: diminished lung sounds bilaterally in the lower lung valencia (Minimal) Cardio Rate: regular rate Rhythm: regular rhythm GI Palpation: soft and nontender Back/Spine/Pelvis Back: No back tenderness Skin General skin exam: no rashes or lesions noted Neuro General: patient alert, patient awake, moves all extremities and no focal motor deficits Motor: muscle tone normal throughout Sensory Exam: no sensory deficits noted Extrem General: normal to inspection, full ROM, capillary refill normal, no pedal edema and no calf tenderness Psych Appearance: grossly normal Mental Status: mental status grossly normal Course <RIAZ Martel - Last Filed: 10/12/19 20:25> Vital Signs Vital signs: Vital Signs Temperature 36.7 C 10/12/19 17:17 Pulse 91 H 10/12/19 17:17 Respiratory Rate 15 10/12/19 17:17 Blood Pressure 127/73 10/12/19 17:17 Pulse Oximetry 99 10/12/19 17:17 Temperature 36.7 C 10/12/19 17:17 Temperature Source Temporal Artery Scan 10/12/19 17:17 Pulse 91 H 10/12/19 17:17 Respiratory Rate 15 10/12/19 17:17 Respiratory Effort 10/12/19 17:20 Blood Pressure 127/73 10/12/19 17:17 Blood Pressure Position Supine 10/12/19 17:17 Pulse Oximetry 99 10/12/19 17:17 Oxygen Delivery Method Room Air 10/12/19 17:17 Oxygen Flow Rate 0 10/12/19 17:17 Pain Level 4 10/12/19 17:17
[2019-10-12] MEDS: Aspirin 81 MG CHEW 243 MG CH (17:44)
[2019-10-12 18:18] LABS: Abs Immature Grans 0.01 k/cumm (0.0-0.09); Absolute Basophil Count 0.03 k/cumm (0.0-0.2); Absolute Eosinophil Count 0.32 k/cumm (0.0-0.7); Absolute Lymphocyte Count 1.93 k/cumm (1.2-3.4); Absolute Monocyte Count 0.63 k/cumm (0.11-0.7); Absolute Neutrophil Count 3.36 k/cumm (1.2-6.7); Basophils % 0.5; Eosinophils % 5.1; HCT 36.5 % (36.0-46.0); HGB 12.5 g/dL (12.0-15.5); Immature Grans % 0.2 %; Lymphocytes % 30.7; Mean Corp. HGB Concentration 34.2 g/dL (32.0-36.0); Mean Corpuscular Volume 93.4 fL (80-95); Mean Platelet Volume 10.3 fL (8.0-11.0); Neutrophils % 53.5; Platelet Count 229 x1000/uL (130-400); RBC 3.91 m/cumm (4.00-5.20); RBC Distribution Width 14.1 % (11.7-14.6); White Blood Cell Count 6.28 k/cumm (4.4-10.8)
[2019-10-12 18:24] LABS: PTT Activated 22.7 sec (21.0-31.4); Prothrombin Time 10.3 sec (9.3-11.0)
[2019-10-12 18:29] LABS: ALT 23 U/L (14-59); AST 19 U/L (15-37); Albumin 3.7 g/dL (3.4-5.0); Alkaline Phosphatase 75 U/L (46-116); Anion Gap 9.8 mmol/L (3-11); BUN 21 mg/dL (7-18); Bilirubin, Total 0.6 mg/dL (0.2-1.0); CO2 24.2 mmol/L (21.0-32.0); CREATININE 0.88 mg/dL (0.55-1.02); Chloride 103 mmol/L (98-107); Glucose 107 mg/dL (74-106); Magnesium 1.6 mg/dL (1.8-2.4); NT-proBNP 164 pg/mL (<300); Potassium 3.6 mmol/L (3.5-5.1); Sodium 137 mmol/L (136-145); Total Protein 7.2 g/dL (6.4-8.2)
--- NOTE | 2019-10-12 18:29 | DI.VRAD_ITS ---
PROCEDURE INFORMATION: Exam: XR Chest, 1 View Exam date and time: 10/12/2019 6:20 PM Age: 78 years old Clinical indication: Chest pain TECHNIQUE: Imaging protocol: XR of the chest Views: 1 view. COMPARISON: CR XR CHEST 2V PA LATERAL 08/06/2018 6:17 PM FINDINGS: Lungs: Clear lungs. Pleural space: No pneumothorax. No sizable pleural effusion. Heart/Mediastinum: No cardiomegaly. Bones/joints: Unremarkable. IMPRESSION: Clear lungs. Dictated and Authenticated by: Wilder Olson MD. Ordering:NATHAN Wilson MD
[2019-10-12 18:41] LABS: Troponin I < 0.05 ng/mL (<0.06)
[2019-10-12 19:50] LABS: D-Dimer 906 ng/mlFEU (<500)
--- NOTE | 2019-10-12 19:57 | HPE_ITS ---
Date of service: 10/12/19 Time of Service: 19:57 Assessment and Plan Assessment and plan (1) Chest tightness: Status: Acute Assessment and plan: CP. Though patient somewhat vague as to details, there appears to be a clear element of escalation recently, and ACS (viz. [place]) entirely possible. Will complete r/o then would either repeat MPI or consider straight to cath in light of known ischemia on last MPI. Will consult cardiology. Reviewed ADs, requests DNR. History of Present Illness History of Present Illness Chief Complaint: CP Narrative: 78 female with h/o COPD and apparent CAD per MPI 10/27 showing reversible lateral apical ischemia (study done for BLACK). Med management undertaken. Patient now presents with several months of CP (tightness) associated with SOB, though unclear if there is an exertional element (states she has it at all times); however, it has been escalating further over past 1-2 weeks, though it is difficult to get patient to specify in exactly what way. In any case she presented for evaluation. Troponin 1 negative, EKG w/o change; CXR read as negative though to my read there appears to be a slight alveolar pattern; BNP WNL. d-Dimer slightly up 906, ER ordering CTA. Patient admitted for further evaluation Review of Systems All systems reviewed & are unremarkable except as noted in HPI and below PFSH Medical History Chronic pain syndrome (Chronic) COPD (chronic obstructive pulmonary disease) (Chronic) Exanthem due to varicella (Inactive) Fibroma (Resolved) 1.5 cm mass-left labia minora. Excised without incident. Benign pathology Irritable bowel syndrome (Chronic) Laryngopharyngeal reflux (Inactive) Mass of vulva (Resolved) R david labia. 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 Surgical History EGD - MAC (01/18/15) DR.CHRIS ADORNO Extraction of cataract 08/22/15; LEFT EYE 09/05/15; RIGHT EYE History of appendectomy (Chronic) History of cataract removal with insertion of prosthetic lens (Inactive 09/13/15) History of cataract surgery (Chronic) History of colonoscopy (Chronic) History of esophagogastroduodenoscopy (Inactive) History of total knee arthroplasty (Acute) LEFT TKA 04/28/16 Family History Mother No problems noted. Social History Smoking/Tobacco Use Status: Former Tobacco Use Alcohol Intake: current Alcohol Intake frequency: 0-2 drinks per day Alcohol type: hard liquor Drug use: Never Do you feel safe at home: Yes Do you feel safe in your relationship?: Yes Female Reproductive History Menstrual Menopause type: natural (48yo) History History 0 Para Hx # Term Pregnancies Multiple births Hx # Pregnancies Ectopic pregnancies AB induced Hx Number of Living Children AB spontaneous Meds Home Medications and Allergies Home Medications Medication Instructions Recorded Confirmed Type acetaminophen [Tylenol] 650 mg PO Q4H PRN PRN tab 04/01/16 10/12/19 Rx esomeprazole magnesium 40 mg 40 mg PO DAILY #90 tab-cap 10/06/18 10/12/19 Rx capsule,delayed release loratadine 10 mg disintegrating 10 mg PO PRN #30 tab-cap 07/21/19 10/12/19 Rx tablet aspirin 81 mg tablet,delayed 81 mg PO DAILY #180 tab 08/31/19 10/12/19 Rx release sertraline 50 mg tablet 25 mg PO DAILY #30 tab 09/07/19 10/12/19 Rx zaleplon 10 mg capsule 20 mg PO HS #60 cap 09/20/19 10/12/19 Rx tramadol 50 mg tablet 50 mg PO BID PRN #20 tab 09/26/19 10/12/19 Rx estradiol 1 gm VG .COMPLEX #42.5 gm 10/05/19 10/12/19 Rx Allergies Allergy/AdvReac Type Severity Reaction Status Date / Time No Known Allergies Allergy Verified 10/12/19 17:21 Exam Narrative Exam Narrative: 123/70, 68, 22, 36.7, 99% RA. HEENT unremarkable; neck w/o JVD, cannot read JVP; lungs clear; heart RRR w/o MRG; abdomen soft and NT; ext remities w/o edema, calves NT Results Labs Result diagrams: 10/12/19 18:00 10/12/19 18:00 Labs: Laboratory Results - last 24 hr 10/12/19 10/12/19 10/12/19 18:00 18:00 18:00 WBC 6.28 RBC 3.91 L Hgb 12.5 Hct 36.5 MCV 93.4 MCH 32.0 MCHC 34.2 RDW 14.1 Plt Count 229 MPV 10.3 Immature Gran % 0.2 Neutrophils % 53.5 Lymphocytes % 30.7 Monocytes % 10.0 Eosinophils % 5.1 Basophils % 0.5 Absolute Neutrophils 3.36 Absolute Lymphocytes 1.93 Absolute Monocytes 0.63 Absolute Eosinophils 0.32 Absolute Basophils 0.03 PT 10.3 INR 1.0 APTT 22.7 D-Dimer Sodium 137 Potassium 3.6 Chloride 103 Carbon Dioxide 24.2 Anion Gap 9.8 BUN 21 H Creatinine 0.88 Estimated GFR/1.73 m2 >= 60.00 Glucose 107 H Calcium 9.0 Magnesium 1.6 L Total Bilirubin 0.6 AST 19 ALT 23 Alkaline Phosphatase 75 Troponin I < 0.05 NT-Pro-B Natriuret Pep 164 Total Protein 7.2 Albumin 3.7 10/12/19 18:00 WBC RBC Hgb Hct MCV MCH MCHC RDW Plt Count MPV Immature Gran % Neutrophils % Lymphocytes % Monocytes % Eosinophils % Basophils % Absolute Neutrophils Absolute Lymphocytes Absolute Monocytes Absolute Eosinophils Absolute Basophils PT INR APTT D-Dimer 906 H Sodium Potassium Chloride Carbon Dioxide Anion Gap BUN Creatinine Estimated GFR/1.73 m2 Glucose Calcium Magnesium Total Bilirubin AST ALT Alkaline Phosphatase Troponin I NT-Pro-B Natriuret Pep Total Protein Albumin Last Vital Signs Temp 36.7 C 10/12/19 17:17 Pulse 63 10/12/19 18:31 Resp 22 10/12/19 18:40 BP 123/70 10/12/19 18:31 Pulse Ox 99 10/12/19 18:40 COVID-19 Screening In the past 14 days, have you traveled outside of [place] or [place]?: NO Had IN PERSON contact w/suspected or confirmed C-19 person: No
[2019-10-12] MEDS: Normal Saline Flush 10 ML SYR IVP ×2 (20:10→21:00)
[2019-10-12] MEDS: Normal Saline - Diluent 50 ML VIAL IV (20:18)
[2019-10-12] MEDS: Omnipaque 350 MG/ML 100 ML BTL IJ (20:19)
--- NOTE | 2019-10-12 20:26 | DI.CT_ITS ---
EXAM: CT CHEST PE CTA CLINICAL HISTORY: sob/pressure/elevated dimer TECHNIQUE: COMPARISON: CR RIGHT SHOULDER COMPLETE from 02/11/2017 CR XR CHEST 2V PA LATERAL from 08/06/2018 FINDINGS: CT angiography the chest with bolus infusion 80 cc 3. There is sclerosis of what appears to T10-T11 vertebral bodies, probably unchanged from prior chest x-ray of 08/06/2018, associated marked disc spa ce consistent with disc degeneration no gross erosive lesion. There is no evidence of pulmonary embolic disease. Thoracic aorta not well opacified there is no tho racic aortic aneurysm. No mediastinal or hilar adenopathy.. Tracheobronchial tree appears intact as visualized. The lungs show mosaic attenuation particularly dependently. No focal consolidation or pleural effusion. Images obtained through the upper abdomen show unremarkable appearance of visualized portions of live r, spleen, pancreas, adrenals, kidneys. IMPRESSION: No evidence of pulmonary embolic disease.
[2019-10-12 20:39] LABS: Troponin I < 0.05 ng/mL (<0.06)
--- NOTE | 2019-10-12 20:51 | DI.VRAD_ITS ---
PROCEDURE INFORMATION: Exam: CT Angiography Chest With Contrast Exam date and time: 10/12/2019 8:27 PM Age: 78 years old Clinical indication: Shortness of breath and other: Elevated d-dimer, chest pressure TECHNIQUE: Imaging protocol: Computed tomographic angiography of the chest with intravenous contrast. 3D rendering: MIP and/or 3D reconstructed images were created by the technologist. Radiation optimization: All CT scans at this facility use at least one of these dose optimization techniques: automated exposure control; mA and/or kV adjustment per patient size (includes targeted exams where dose is matched to clinical indication); or iterative reconstruction. Contrast material: [id number]; Contrast volume: 80 ml; Contrast route: IV 20G RT FOREARM; COMPARISON: CR XR PORTABLE CHEST AP 10/12/2019 6:14 PM FINDINGS: Pulmonary arteries: Normal. No pulmonary emboli. Aorta: No aortic aneurym. Lungs: Air trapping. No pneumonia. Pleural space: Unremarkable. No pneumothorax. No pleural effusion. Heart: Borderline cardiomegaly. Lymph nodes: Unremarkable. No enlarged lymph nodes. Bones/joints: Multilevel degenerative changes of the thoracic spine Soft tissues: Unremarkable. IMPRESSION: No acute pulmonary embolus. Dictated and Authenticated by: Wilder Olson MD. Ordering:NATHAN Wilson MD
[2019-10-12] MEDS: Zolpidem 10 MG TAB PO (23:40)
[2019-10-13] VITALS (16 sets, daily range): BP systolic 119–148; BP diastolic 55–95; PULSE 72–93; RESP 9–33; TEMP 36.3; O2SAT 94–98
--- NOTE | 2019-10-13 02:09 | NUR.NOTE ---
pt rang and inquired about additional sleeping pills after ambien was already given. when this creative services writer asked to hold on one minute pt reached into her purse and took 2 additional pills. this creative services writer inquired as to what she took, pt replied first with I don't care I need to sleep. This creative services writer then educated the patient on the harm of mixing unknown sleeping meds with ambien. Pt then stated she took 2 unisom tablets. MD notified, no further recommendations given.
[2019-10-13 07:13] LABS: Troponin I < 0.05 ng/mL (<0.06)
--- NOTE | 2019-10-13 08:46 | W.CARDCONSUL ---
Date of service: 10/13/19 Time of Service: 08:46 Assessment and Plan Assessment and plan (1) Exertional dyspnea: Status: Acute Assessment and plan: Patient describes exertional shortness of breath which has been progressive over the past year, worse in the last month and a half Prior myocardial perfusion imaging was mildly abnormal, suggesting a small amount of ischemia in the distal left anterior descending or circumflex territory I would recommend proceeding with another pharmacologic myocardial perfusion imaging study to assess for any change, or for significant myocardium at risk Further recommendations will follow after review the test Thank you for the opportunity to participate in the care of this patient (2) Chest tightness: Status: Acute (3) Abnormal myocardial perfusion study: Status: Acute History of Present Illness History of Present Illness Chief Complaint: Exertional dyspnea, chest tightness Narrative: This is a 78-year-old woman who presented to the hospital primarily because of exertional shortness of breath and profound fatigue. The patient is a fair historian. She reports that for the last month and a half she has had progressive dyspnea doing virtually any activity. She also has been very very tired. She describes tightness in the chest, coincident with the exertional dyspnea but also possibly more prolonged Last year she reportedly was experiencing exertional shortness of breath but then and this led to a myocardial perfusion imaging study. This reported a small partially reversible area of ischemia in the lateral apical segment Medical therapy was recommended. She initially was started on atorvastatin and metoprolol. She says the metoprolol gave her nightmares. She also said she only took the medication for a few days and then stopped In August she was prescribed carvedilol but does not think that she ever took this She was in [place] last fall and in the early part of the winter where she reportedly had pneumonia. She carries a diagnosis of fibromyalgia. She has had testing in the past consistent with obstructive sleep apnea She has difficulty sleeping. She takes sedatives. At times she will awaken from sleep feeling panicky but not necessarily short of breath. She reports a lot of anxiety Electrocardiogram showed no acute changes. Cardiac enzymes are negative. Review of Systems All systems reviewed & are unremarkable except as noted in HPI and below PFSH Medical History Chronic pain syndrome (Chronic) COPD (chronic obstructive pulmonary disease) (Chronic) Exanthem due to varicella (Inactive) Fibroma (Resolved) 1.5 cm mass-left labia minora. Excised without incident. Benign pathology Irritable bowel syndrome (Chronic) Laryngopharyngeal reflux (Inactive) Mass of vulva (Resolved) R david labia. 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 Surgical History EGD - MAC (01/18/15) DR.CHRIS ADORNO Extraction of cataract 08/22/15; LEFT EYE 09/05/15; RIGHT EYE History of appendectomy (Chronic) History of cataract removal with insertion of prosthetic lens (Inactive 09/13/15) History of cataract surgery (Chronic) History of colonoscopy (Chronic) History of esophagogastroduodenoscopy (Inactive) History of total knee arthroplasty (Acute) LEFT TKA 04/28/16 Family History Mother No problems noted. Social History Smoking/Tobacco Use Status: Former Tobacco Use Alcohol Intake: current Alcohol Intake frequency: 0-2 drinks per day Alcohol type: hard liquor Drug use: Never Do you feel safe at home: Yes Do you feel safe in your relationship?: Yes Female Reproductive History Menstrual Menopause type: natural (48yo) History History 0 Para Hx # Term Pregnancies Multiple births Hx # Pregnancies Ectopic pregnancies AB induced Hx Number of Living Children AB spontaneous Exam Narrative Exam Narrative: Obese woman, no acute distress Const General: cooperative Eyes Pupils: PERRL EOM: EOM intact bilaterally Neck Neck: normal visual inspection Carotids: normal carotid upstroke and no bruits Resp Auscultation: clear to auscultation bilaterally Cardio Other: Heart is regular without murmur gallop Extrem Other: Extremities show no significant peripheral edema Psych Other: Patient is awake alert fair historian fair memory Results Last Vital Signs Temp 36.7 C 10/12/19 20:50 Pulse 85 10/13/19 08:01 Resp 20 10/13/19 08:01 BP 137/88 10/13/19 08:01 Pulse Ox 95 10/13/19 02:01 Labs Result diagrams: 10/12/19 18:00 10/12/19 18:00 Labs: Laboratory Results - last 24 hr 10/12/19 10/12/19 10/12/19 18:00 18:00 18:00 WBC 6.28 RBC 3.91 L Hgb 12.5 Hct 36.5 MCV 93.4 MCH 32.0 MCHC 34.2 RDW 14.1 Plt Count 229 MPV 10.3 Immature Gran % 0.2 Neutrophils % 53.5 Lymphocytes % 30.7 Monocytes % 10.0 Eosinophils % 5.1 Basophils % 0.5 Absolute Neutrophils 3.36 Absolute Lymphocytes 1.93 Absolute Monocytes 0.63 Absolute Eosinophils 0.32 Absolute Basophils 0.03 PT 10.3 INR 1.0 APTT 22.7 D-Dimer Sodium 137 Potassium 3.6 Chloride 103 Carbon Dioxide 24.2 Anion Gap 9.8 BUN 21 H Creatinine 0.88 Estimated GFR/1.73 m2 >= 60.00 Glucose 107 H Calcium 9.0 Magnesium 1.6 L Total Bilirubin 0.6 AST 19 ALT 23 Alkaline Phosphatase 75 Troponin I < 0.05 NT-Pro-B Natriuret Pep 164 Total Protein 7.2 Albumin 3.7 10/12/19 10/12/19 10/13/19 18:00 20:08 06:17 WBC RBC Hgb Hct MCV MCH MCHC RDW Plt Count MPV Immature Gran % Neutrophils % Lymphocytes % Monocytes % Eosinophils % Basophils % Absolute Neutrophils Absolute Lymphocytes Absolute Monocytes Absolute Eosinophils Absolute Basophils PT INR APTT D-Dimer 906 H Sodium Potassium Chloride Carbon Dioxide Anion Gap BUN Creatinine Estimated GFR/1.73 m2 Glucose Calcium Magnesium Total Bilirubin AST ALT Alkaline Phosphatase Troponin I < 0.05 < 0.05 NT-Pro-B Natriuret Pep Total Protein Albumin EKG interpretations EKG EKG results cardiology: interpreted by HANG and no acute changes
[2019-10-13] MEDS: Esomeprazole 40 MG CAPCR PO (08:49)
[2019-10-13] MEDS: Sertraline 50 MG TAB PO (08:49)
[2019-10-13] MEDS: Aspirin E.C. 81 MG TABEC PO (08:49)
--- NOTE | 2019-10-13 11:03 | PDOC.CMIN ---
- If Service Date Differs Date of service: 10/13/19 Time of Service: 11:03 Care Management Initial Assess REASON FOR HOSPITALIZATION:: Chest Pain PAST MEDICAL HISTORY/PAST SURGICAL HISTORY:: Medical History . Chronic pain syndrome (Chronic). COPD (chronic obstructive pulmonary disease) (Chronic). Exanthem due to varicella (Inactive). Fibroma (Resolved). 1.5 cm mass-left labia minora. Excised without incident. Benign pathology. Irritable bowel syndrome (Chronic). Laryngopharyngeal reflux (Inactive). Mass of vulva (Resolved). R david labia. Obstructive sleep apnea (Chronic). Oral lesion (Inactive). Vaginal dryness, menopausal (Chronic). 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 Surgical History . EGD - MAC (01/18/15). DR.CHRIS ADORNO. Extraction of cataract. 08/22/15; LEFT EYE. 09/05/15; RIGHT EYE. History of appendectomy (Chronic). History of cataract removal with insertion of prosthetic lens (Inactive 09/13/15). History of cataract surgery (Chronic). History of colonoscopy (Chronic). History of esophagogastroduodenoscopy (Inactive). History of total knee arthroplasty (Acute). LEFT TKA. 04/28/16 PREVIOUS FUNCTIONAL STATUS/SOCIAL/FAMILY SUPPORTS:: Lesa lives in [place] with her s/o, Henrik. She is independent at baseline. CURRENT FUNCTIONAL STATUS:: Lesa was being prepped for her stress test when FRANCISCA spoke with her primary RN. Due to Covid 19 precautions, FRANCISCA will not visit with the patient while she remains a PUI. Per report, if her stress test is negative, she may be able to return home today. FRANCISCA will continue to follow. ADVANCE DIRECTIVES:: None on file. Has patient been provided with information about the portal?: Yes Did the patient sign up for the portal?: Yes (previously signed up) CODE STATUS:: DNR/DNI INSURANCE COVERAGE / FINANCIAL ISSUES:: [facility]/ [employer] CURRENT HOME/COMMUNITY SERVICES/EQUIPMENT:: No community services or equipment at this time. PRIMARY CARE PHYSICIAN:: Gaurang Kendall POTENTIAL DISCHARGE NEEDS:: Evaluations for further needs, follow up appointments PATIENT/FAMILY EDUCATION NEEDS:: Review discharge instructions regarding activity levels and medications, discussion of self care needs including ask me three and goals of care. ANTICIPATED BARRIERS TO DISCHARGE:: None identified at this time. TRANSPORTATION:: Via private vehicle by friends. PLAN:: Anticipate Lesa will return home when medically cleared. No anticipated services at this time. Her s/o will drive her home via private vehicle. She will follow up with her PCP and discharge plan of care. CM will continue to follow.
--- NOTE | 2019-10-13 11:15 | DI.NM_ITS ---
APPROVED REPORT Exam: Pharmacologic Patient Location: In-Patient Room/Bed: 221 Stress Nurse: Rebecca Fraga RN BMI: 32.95 Baseline Rhythm: Sinus Rhythm Indications: chest tightness, sob Medical History Medical History: COPD, Obstructive sleep apnea, Obesity , Angina Cardiac Medications: Aspirin Allergies: No known drug allergies Cardiac Risk Factors: SOB, COPD, CVD Pretest Chest Pain Characteristics: Non-exertional Chest pain Exercise History: Sedentary Lung Sounds: Clear to auscultation Heart Sounds: Regular Stress Test Details Test: Pharmacologic stress testing performed using 0.4 mg of regadenoson per 5 mL given IV over 10 s econds. Reason for pharmacologic stress test: physical limitation. Nuclear Acquisition: Rest Tc-99m/Stress Tc-99m 1 day Rest Isotope: Tc-99m Sestamibi. Dose: 10.5 Date: 10/13/2019 Injection Time: 1145 Stress Isotope: Tc-99m Sestamibi. Dose: 33 Date: 10/13/2019 Injection Time: 1310 HR Resting HR Supine: 76 bpm Max Heart Rate (APMHR): 143 bpm Target HR (85% APMHR): 121 bpm Max HR Achieved: 105 bpm % of APMHR: 73 Recovery HR: 90 bpm HR response to stress: Normal HR response to stress BP Resting BP Supine: 180/108 mmHg Max BP: 180/108 mmHg Recovery BP: 154/100 mmHg BP response to stress: Normal blood pressure response to stress. ECG Resting ECG: Sinus Rhythm Stress ECG: Sinus Rhythm, Sinus Tachycardia ST Change: Normal Maximum ST Deviation: 0.6 mm Arrhythmia: VPC's Comment: rare pvc's Recovery ECG: Sinus Rhythm Recovery ST Change: Normal Recovery Arrhythmia: None Clinical Exercise duration: 06:20 min sec Exercise capacity: 1 METs Stress ECG Conclusion 1. Resting electrocardiogram was normal 2. Patient underwent pharmacologic stress using regadenoson. There were no symptoms of angina 3. Resting hypertension. Normal heart rate response to exercise. Peak heart rate was 73% of predict ed heart rate for age 4. Electrocardiographically the test was nondiagnostic due to inadequate heart rate 5. Occasional PVCs noted Stress Test Summary STAGE HR BP Symptoms NOTES Supine 76 180/108 1 min post Lexiscan injection 89 144/90 sob 3 min post Lexiscan injection 92 146/90 6 min post Lexiscan injection 90 154/100 MPI Conclusion No evidence of myocardial infarction No significant myocardial ischemia Calculated EF 51% Radiologist Interpretation Radiologist agrees with Soaker Helper's Interpretation. Radiologist Interpretation by: Giuseppe Garcia MD Interpretation Date/Time: 10/13/2019 15:41:45
[2019-10-13] MEDS: Regadenoson 0.4 MG/5 ML SYR IVP (12:46)
[2019-10-13] MEDS: Acetaminophen 325 MG TAB 650 MG PO (13:57)
[2019-10-13] MEDS: Normal Saline Flush 10 ML SYR IVP (13:59)
--- NOTE | 2019-10-13 15:04 | W.PM.DS.N ---
Date of service: 10/13/19 Time of Service: 15:04 DS: Diagnosis Discharge Diagnosis (1) Exertional dyspnea: Status: Acute Asessment and Plan: Asymptomatic, in terms of dyspnea, since arrival in the hospital and cause not identified. She did complain of ongoing fatigue. Reassuring MPI stress test with no indication that her exertional dyspnea, nor chest tightness, is likely due to coronary artery disease. Reassurance offered. Recommendations were to follow-up with her primary care provider to pursue alternative diagnoses as an outpatient. (2) Chest tightness: Status: Acute Asessment and Plan: Very vague symptoms by history, none during her brief time in the hospital. Troponins all normal. MPI stress test negative for evidence of ischemia. I did not attempt to restart beta-all or statin during this hospitalization given her reported adverse effects. Further work-up, if symptoms persist, to be done as an outpatient. (3) Sleep apnea: Status: Acute Asessment and Plan: Suspect that this may be a major cause of her fatigue. Her use of sedative medications may be contributing to her daytime sleepiness. Made no changes to her chronic medications but merits pursuing sleep study and/or adjusting her medications used for insomnia. I defer to her primary care provider to make any medication adjustments. (4) Person under investigation for COVID-19: Status: Acute Asessment and Plan: Had been tested 2 days prior to admission for COVID-19 and was found to be negative. I do not elicit any new exposure since that time. Upon admission labeled aa a PUI, perhaps because of her minimally elevated d-dimer and complaints of shortness of breath. Covid 19 PCR returned negative at the time of discharge. Discharge Plan Disposition Patient Disposition: HOME Condition: Stable Discharge Details Chief Complaint: Chest Pain Clinical Impression: Exertional dyspnea, Chest tightness Reason For Visit: CP Admit Date/Time: 10/12/19 20:11 Admit Provider: Jerry Gonzales Attending Provider: Jerry Gonzales Primary Care Provider: Gaurang Kendall ED Provider: Steve Lin Hospital Course Hospital Course: 78 female with h/o COPD and apparent CAD per MPI 10/27 showing reversible lateral apical ischemia (study done for BLACK). Med management undertaken. However, stopped beta-all and atorvastatin several months ago due to reported side effects of unpleasant and vivid dreams. Patient now presents with several months of CP (tightness) associated with SOB, though unclear if there is an exertional element (states she has it at all times); however, it has been escalating further over past 1-2 weeks, though it is difficult to get patient to specify in exactly what way. In any case she presented for evaluation. Troponin 1 negative, EKG w/o change; CXR read as negative; BNP WNL. d-Dimer slightly up 906, CTA negative for pulmonary embolism, nonspecific inferior interstitial changes. Admitted to ICU, no dysrhythmias on telemetry. Serial troponins all below level of detection. MPI stress test performed with no indication of ischemia (final report pending at the time of this dictation, verbal report from cardiology no evidence of ischemia. Patient continued to complain of her persistent fatigue. 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 Concern raised that untreated sleep apnea and/or excessive use of sedative medications may be contributing to her fatigue but no changes were made to her medications during this hospitalization. No new medications were introduced. She was informed of the negative stress test results and reassured that her symptoms do not appear to be related to her heart. However, we could not provide a diagnosis for her presenting complaints during this brief hospitalization and further follow-up as an outpatient is warranted. Labeled as a person under investigation for COVID-19 at the time of admission for reasons that are not clear to me. She had a negative COVID-19 test 2 days prior to admission which was repeated on admission and results are again negative. Home Meds and New Rx's Prescriptions: Continued esomeprazole magnesium [Nexium] 40 mg capsule,delayed release(DR/EC) 40 mg PO DAILY Qty: 90 RF: 3 loratadine 10 mg tablet,disintegrating 10 mg PO PRN Qty: 30 RF: 4 aspirin [Adult Aspirin Regimen] 81 mg tablet,delayed release (DR/EC) 81 mg PO DAILY Qty: 180 RF: 3 sertraline 50 mg tablet 25 mg PO DAILY Qty: 30 RF: 11 tramadol 50 mg tablet 50 mg PO BID PRN (Reason: pain) Qty: 20 RF: 0 zaleplon 10 mg capsule 20 mg PO HS Qty: 60 RF: 3 estradiol 0.01 % (0.1 mg/gram) cream 1 gm VG .COMPLEX Qty: 42.5 RF: 4 acetaminophen [Tylenol] 325 MG tablet 650 mg PO Q4H PRN PRNRF: 0 Discharge Instructions Instructions: Sleep Apnea (DC), Insomnia (DC) Additional Instructions: No changes were made to any of your medications. We recommend you discuss with your primary care provider having a sleep study. It is possible that medications for your insomnia are making you more tired during the day. Referrals: Gaurang Kendall [Primary Care Provider] - 10/24/19 3:00 pm (Appointment will be scheduled for follow-up sometime within the next 2 weeks) Activity:: Activity as Tolerated Equipment/Supplies:: No Equipment Needed Diet:: As Tolerated Discharge Orders Discharge Orders: Discharge Order (Routine); Ordered 10/13/19 Ordered By: Portillo Hagen DS: Summary Status at Discharge Functional status at discharge: independent ambulation Overall status at discharge: patient is back to baseline Mental Status: mental status grossly normal Speech and Movement: slowed movement Mood: congruent mood Affect: blunted Time Spent with Patient providing and/or coordinating discharge services: Greater than 30 minutes Exam Narrative Exam Narrative: A bit hard of hearing but in no acute emotional or physical distress. Neck veins are flat. Lungs good aeration throughout with no wheeze crackles or rub. Regular heart rhythm with no murmur S3 or S4. Nontender abdomen with no HJR. No pitting edema in the extremities. Good pulses distally. Independent with transfers. No grossly apparent memory deficits noted in our conversations. Affect somewhat flat. Psych Mental Status: mental status grossly normal Speech and Movement: slowed movement Mood: congruent mood Affect: blunted DS: Data Vitals/I&O Vitals and I&O: Vital Signs Temperature 36.3 C L 10/13/19 13:57 Temperature Source Temporal Artery Scan 10/13/19 13:57 Pulse 80 10/13/19 13:47 Pulse Rhythm Regular 10/13/19 08:30 Pulse 81 10/13/19 13:47 Respiratory Rate 9 L 10/13/19 13:47 Respiratory Effort 10/13/19 08:30 Respiratory Depth Normal 10/13/19 08:30 Respiratory Pattern Normal 10/13/19 08:30 Blood Pressure 148/95 H 10/13/19 13:47 Blood Pressure Mean 109 10/13/19 13:47 Blood Pressure Position Supine 10/12/19 20:50 Pulse Oximetry 97 10/13/19 13:47 Oxygen Delivery Method Room Air 10/13/19 13:57 Oxygen Flow Rate 0 10/13/19 13:57 Pain Level 5 10/13/19 13:57 Intake & Output 10/12/19 10/13/19 10/13/19 23:59 11:59 23:59 Intake Total 450 / 450 250 / 250 Output Total 75 / 75 300 / 300 Balance 375 / 375 -50 / -50 Weight 87.3 kg Intake: IV Oral 440 / 440 240 / 240 Output: Urine 75 / 75 300 / 300 Other: Urine Color Pale Yellow Urine Appearance Clear Clear Urine Odor Normal Normal Stool Size Large Stool Characteristics Formed Voiding Methods Bedpan Bedside Commode Data Completed and Pending Labs on day of discharge: Labs from last 24 hours 10/13/19 10/12/19 10/12/19 06:17 20:30 20:08 WBC RBC Hgb Hct MCV MCH MCHC RDW Plt Count MPV Immature Gran % Neutrophils % Lymphocytes % Monocytes % Eosinophils % Basophils % Absolute Neutrophils Absolute Lymphocytes Absolute Monocytes Absolute Eosinophils Absolute Basophils PT INR APTT D-Dimer Sodium Potassium Chloride Carbon Dioxide Anion Gap BUN Creatinine Estimated GFR/1.73 m2 Glucose Calcium Magnesium Total Bilirubin AST ALT Alkaline Phosphatase Troponin I < 0.05 < 0.05 NT-Pro-B Natriuret Pep Total Protein Albumin COVID-19 PCR Pending Nasopharyn COVID-19 PCR Pending Ref Test Perform Site Pending 10/12/19 10/12/19 10/12/19 18:00 18:00 18:00 WBC 6.28 RBC 3.91 L Hgb 12.5 Hct 36.5 MCV 93.4 MCH 32.0 MCHC 34.2 RDW 14.1 Plt Count 229 MPV 10.3 Immature Gran % 0.2 Neutrophils % 53.5 Lymphocytes % 30.7 Monocytes % 10.0 Eosinophils % 5.1 Basophils % 0.5 Absolute Neutrophils 3.36 Absolute Lymphocytes 1.93 Absolute Monocytes 0.63 Absolute Eosinophils 0.32 Absolute Basophils 0.03 PT 10.3 INR 1.0 APTT 22.7 D-Dimer 906 H Sodium Potassium Chloride Carbon Dioxide Anion Gap BUN Creatinine Estimated GFR/1.73 m2 Glucose Calcium Magnesium Total Bilirubin AST ALT Alkaline Phosphatase Troponin I NT-Pro-B Natriuret Pep Total Protein Albumin COVID-19 PCR Nasopharyn COVID-19 PCR Ref Test Perform Site 10/12/19 18:00 WBC RBC Hgb Hct MCV MCH MCHC RDW Plt Count MPV Immature Gran % Neutrophils % Lymphocytes % Monocytes % Eosinophils % Basophils % Absolute Neutrophils Absolute Lymphocytes Absolute Monocytes Absolute Eosinophils Absolute Basophils PT INR APTT D-Dimer Sodium 137 Potassium 3.6 Chloride 103 Carbon Dioxide 24.2 Anion Gap 9.8 BUN 21 H Creatinine 0.88 Estimated GFR/1.73 m2 >= 60.00 Glucose 107 H Calcium 9.0 Magnesium 1.6 L Total Bilirubin 0.6 AST 19 ALT 23 Alkaline Phosphatase 75 Troponin I < 0.05 NT-Pro-B Natriuret Pep 164 Total Protein 7.2 Albumin 3.7 COVID-19 PCR Nasopharyn COVID-19 PCR Ref Test Perform Site COVID-19 negative, results returned after above labs printed. MPI stress test verbal report of no evidence of ischemia. BNP 164. a CT:CT chest PE CTA EXAM: CT CHEST PE CTA CLINICAL HISTORY: sob/pressure/elevated dimer TECHNIQUE: COMPARISON: CR RIGHT SHOULDER COMPLETE from 02/11/2017 CR XR CHEST 2V PA LATERAL from 08/06/2018 FINDINGS: CT angiography the chest with bolus infusion 80 cc 3. There is sclerosis of what appears to T10-T11 vertebral bodies, probably unchanged from prior chest x-ray of 08/06/2018, associated marked disc space consistent with disc degeneration no gross erosive lesion. There is no evidence of pulmonary embolic disease. Thoracic aorta not well opacified there is no thoracic aortic aneurysm. No mediastinal or hilar adenopathy.. Tracheobronchial tree appears intact as visualized. The lungs show mosaic attenuation particularly dependently. No focal consolidation or pleural effusion. Images obtained through the upper abdomen show unremarkable appearance of visualized portions of liver, spleen, pancreas, adrenals, kidneys. IMPRESSION: No evidence of pulmonary embolic disease. [facility] Medical History Chronic pain syndrome (Chronic) COPD (chronic obstructive pulmonary disease) (Chronic) Exanthem due to varicella (Inactive) Fibroma (Resolved) 1.5 cm mass-left labia minora. Excised without incident. Benign pathology Irritable bowel syndrome (Chronic) Laryngopharyngeal reflux (Inactive) Mass of vulva (Resolved) R david labia. 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 Surgical History EGD - MAC (01/18/15) DR.CHRIS ADORNO Extraction of cataract 08/22/15; LEFT EYE 09/05/15; RIGHT EYE History of appendectomy (Chronic) History of cataract removal with insertion of prosthetic lens (Inactive 09/13/15) History of cataract surgery (Chronic) History of colonoscopy (Chronic) History of esophagogastroduodenoscopy (Inactive) History of total knee arthroplasty (Acute) LEFT TKA 04/28/16 Family History Mother No problems noted. Social History Smoking/Tobacco Use Status: Former Tobacco Use Alcohol Intake: current Alcohol Intake frequency: 0-2 drinks per day Alcohol type: hard liquor Drug use: Never Do you feel safe at home: Yes Do you feel safe in your relationship?: Yes Female Reproductive History Menstrual Menopause type: natural (48yo) History History 0 Para Hx # Term Pregnancies Multiple births Hx # Pregnancies Ectopic pregnancies AB induced Hx Number of Living Children AB spontaneous
[2019-10-13 15:06] LABS: COVID-19 RT-PCR UVMMC Result Negative (Negative)
== END 2019-10-13 16:05 | disposition home or self-care (01) ==
LOC: ER 20:57 → ICU 21:10
PROVIDERS: Admitting Provider General Practice; Emergency Provider Physician Assistant; PCP Family Medicine; Visit Provider Internal Medicine
DX: R07.89 Other chest pain (principal); R06.09 Other forms of dyspnea; R53.83 Other fatigue; R79.1 Abnormal coagulation profile; G47.33 Obstructive sleep apnea (adult) (pediatric); Z66 Do not resuscitate; R94.39 Abnormal result of other cardiovascular function study; J44.9 Chronic obstructive pulmonary disease, unspecified; E66.9 Obesity, unspecified
CPT/HCPCS: 36415; 71275; 78452; 80053; 93005; 93016; 93018; 99215; 99217; 99222; 99252; 99285; U0003; 71045; 83735; 83880; 84484; 85025; 85379; 85610; 85730; 93010; 93017; 99218; G0378; J2785; J3490

== ENCOUNTER → 2019-10-13 07:57 | Outpatient (BNVA) | payer MEDICARE, SELFPAY | PROVIDERS: PCP Family Medicine; Referring Provider Family Medicine; Visit Provider Internal Medicine Cardiovascular Disease | DX: R69 Illness, unspecified (principal) ==

== ENCOUNTER 2020-02-20 15:31 | Inpatient (IN) | payer MEDICARE, SELFPAY ==
[2020-02-20] VITALS (31 sets, daily range): BP systolic 114–141; BP diastolic 49–93; PULSE 63–109; RESP 8–27; TEMP 36.5–36.8; O2SAT 86–100
--- NOTE | 2020-02-20 15:45 | DI.CT_ITS ---
EXAM: CT ABDOMEN PELVIS W CLINICAL HISTORY: upper abd pain, bloating, vomiting TECHNIQUE: Imaging Protocol: Axial computed tomography images with coronal and sagittal reformatted images were created and reviewed CONTRAST MATERIAL: Intravenous: Omnipaque 350 Contrast volume:100 mL Oral: No COMPARISON: CT CT CHEST PE CTA from 10/12/2019 FINDINGS: ABDOMEN: Lung Bases: Mild basilar scarring and/or atelectasis. Liver: Diffuse decreased attenuation of the liver consistent with fatty infiltration. No measurable mass. Portal, Superior Mesenteric, and Splenic Veins: Unremarkable. Gallbladder and Biliary Tract: No radiodense calculus or dilation. Pancreas: Normal density, no abnormal calcifications or inflammatory process. Spleen: Normal. Adrenals: No masses seen. Kidneys: Normal size, contour and axis. No radiodense stones or obstructive uropathy. No masses seen. Abdominal Aorta: Abdominal portion non-dilated. Atherosclerosis. Bowel: No evidence of bowel obstruction. There is bowel wall thickening seen in the proximal duodenu m with adjacent inflammatory stranding. Remainder of the bowel is unremarkable. No evidence of acut e appendicitis. Colonic diverticulosis but no evidence of acute diverticulitis. Peritoneal Cavity: No ascites, collection or mesenteric inflammatory response. Lymph Nodes: Within normal limits. Bones: Degenerative changes. Soft Tissues: Unremarkable. PELVIS: Bladder: Symmetric distention, no gross wall thickening. Reproductive Organs: Unremarkable as visualized. Lymph Nodes: Within normal limits. Bones: Degenerative changes. IMPRESSION: 1. Bowel wall thickening with associated soft tissue edema in the proximal duodenum suggesting duoden itis or possible ulcer disease. No pneumoperitoneum. 2. Fatty infiltration of the liver. 3. Colonic diverticulosis without evidence of acute diverticulitis. RADIATION DOSE DELIVERED: 1,080.77mGy.cm Total DLP DATA REPOSITORY: All CT scans at this facility are submitted to the National Radiology Data Registry (NRDR) Dose Index Registry (DIR) with the [employer] (A[employer]). RADIATION OPTIMIZATION: All CT scans at this facility use at least one of these dose optimization te chniques: automated exposure control; mA and/or kV adjustment per patient size (includes targeted exa ms where dose is matched to clinical indication); or iterative reconstruction.
--- NOTE | 2020-02-20 15:53 | ED.GENADUL_ITS ---
Discharge Plan Disposition Patient Disposition: [facility] INPATIENT Condition: Improving Discharge Details Clinical Impression: Acute UTI, Duodenitis Admit Date/Time: 02/20/20 18:26 Admit Provider: Jerry Gonzales Attending Provider: Jerry Gonzales Primary Care Provider: Gaurang Kendall ED Provider: Giuseppe Martinez Medical Decision Making 79-year-old female referred from primary care 4 weeks of loose stool, now with progressive abdominal pain and distention associated with nausea vomiting over days time. She feels weak. She has not had syncope. She has not had focal neurologic deficit. She will not take any course of doxycycline for tooth infection approximately 1 month ago, and travel to [place]. She is afebrile, well-appearing, pulse 93, blood pressure 120/73. Mild and diffusely tender in her abdomen. Differential diagnosis includes C. difficile colitis, ileus, bowel obstruction, gastroenteritis. IV access established, laboratories obtained. Patient given fluid bolus and antiemetic. Count is 10.6, hematocrit 43, platelets 277, left shift with absolute neutrophils present, lactate 2.4, chemistries no anion gap of 15, BUN 15, creatinine 0.9. LFTs unremarkable, troponin negative, lipase negative. Urinalysis consistent with acute UTI. CT obtained which reveals evidence of duodenitis. Given patient's anion gap, UTI and bowel pathology, will admit to Dr. Gonzales for fluids and bowel rest. HPI General Mode of arrival: ambulatory . Date/Time Provider Initiated Documentation: 02/20/20 15:32 . Limitations to Documentation: no limitations . Information obtained by: patient . History of Present Illness 79 year old F presents to the emergency department with the chief complaint of Bloating, watery diarrhea, vomiting for days time, described as moderate, Quality is described as dull and constant, and is localized to the abdomen. Patient reports no radiation. Patient started experiencing this day(s) and it has been constant. No relieving factors improve symptom(s), No exacerbating factors reported . Patient notes loss of appetite and nausea/vomiting. Patient did receive the following treatments prior to arrival, none Related Data Home Medications Medication Instructions Recorded Confirmed acetaminophen [Tylenol] 650 mg PO Q4H PRN PRN tab 04/01/16 02/20/20 esomeprazole magnesium 40 mg 40 mg PO DAILY #90 tab-cap 10/06/18 02/20/20 capsule,delayed release aspirin 81 mg tablet,delayed 81 mg PO DAILY #180 tab 08/31/19 02/20/20 release estradiol 1 gm VG .COMPLEX #42.5 gm 10/05/19 02/20/20 loratadine 10 mg disintegrating 10 mg PO PRN #30 tab-cap 01/24/20 02/20/20 tablet sertraline 50 mg tablet 50 mg PO DAILY #30 tab 01/24/20 02/20/20 zaleplon 10 mg capsule 20 mg PO HS #60 cap 01/24/20 02/20/20 tramadol 50 mg tablet 50 mg PO BID PRN #30 tab-cap 01/29/20 02/20/20 Previous Rx's Medication Instructions Recorded acetaminophen [Tylenol] 650 mg PO Q4H PRN PRN tab 04/01/16 esomeprazole magnesium 40 mg 40 mg PO DAILY #90 tab-cap 10/06/18 capsule,delayed release aspirin 81 mg tablet,delayed 81 mg PO DAILY #180 tab 08/31/19 release estradiol 1 gm VG .COMPLEX #42.5 gm 10/05/19 loratadine 10 mg disintegrating 10 mg PO PRN #30 tab-cap 01/24/20 tablet sertraline 50 mg tablet 50 mg PO DAILY #30 tab 01/24/20 zaleplon 10 mg capsule 20 mg PO HS #60 cap 01/24/20 tramadol 50 mg tablet 50 mg PO BID PRN #30 tab-cap 01/29/20 Allergies Allergy/AdvReac Type Severity Reaction Status Date / Time No Known Allergies Allergy Verified 02/20/20 15:47 General Stated Complaint: Nausea/Vomit/Diar DEJUAN: 3 Review of Systems Narrative: Recently traveled to [place]. No cough change to taste/smell. No known sick contacts. Took doxycycline for tooth infection 1 month ago, now with 3 weeks of loose stool and days of progressive abdominal pain and vomiting. 8 systems reviewed and otherwise negative [facility], [facility] Medical History (Updated 02/20/20 @ 18:18 by Jerry Gonzales MD) Chronic pain syndrome COPD (chronic obstructive pulmonary disease) Exanthem due to varicella 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 Excised without incident. Benign pathology Irritable bowel syndrome Laryngopharyngeal reflux Mass of vulva R david labia. Obstructive sleep apnea Oral lesion Vaginal dryness, menopausal half-way use of vaginal E2. Surgical History EGD - MAC (01/18/15) DR.CHRIS ADORNO Extraction of cataract 08/22/15; LEFT EYE 09/05/15; RIGHT EYE History of appendectomy History of cataract removal with insertion of prosthetic lens (09/13/15) History of cataract surgery History of colonoscopy History of esophagogastroduodenoscopy History of total knee arthroplasty LEFT TKA 04/28/16 Family History Mother No problems noted. Social History Smoking/Tobacco Use Status: Former Tobacco Use Alcohol Intake: current Alcohol Intake frequency: 0-2 drinks per day Alcohol type: hard liquor Drug use: Never Do you feel safe at home: Yes Do you feel safe in your relationship?: Yes Female Reproductive History Menstrual Menopause type: natural (48yo) History History 0 Para Hx # Term Pregnancies Multiple births Hx # Pregnancies Ectopic pregnancies AB induced Hx Number of Living Children AB spontaneous Exam Narrative Exam Narrative: GEN: awake, alert, oriented 3. Pleasant, well groomed, interactive. HEAD: Normocephalic, atraumatic ENT: Mucous membranes moist, oropharynx unremarkable, External ear exam unremarkable EYES: PERRL, EOMI NECK: Full ROM, no SHY, no menigismus CHEST/RESP: Nontender, clear to auscultation bilateral, no wheeze/rhonchi/rales CARDIOVASCULAR: RRR, no murmur, rub valencia. 2+ Rad pulse bilateral ABDOMEN: Slightly distended and tender, no focal rebound. EXT: Full ROM, no edema, no rash Neuro: Grossly normal neurologic exam, conversant, interactive. Psych: Speech fluent, thoughts congruent, affect normal Course Vital Signs Vital signs: Vital Signs Temperature 36.8 C 02/20/20 15:39 Pulse 93 H 02/20/20 15:39 Respiratory Rate 15 02/20/20 15:39 Blood Pressure 120/73 02/20/20 15:39 Pulse Oximetry 99 02/20/20 15:39 Temperature 36.8 C 02/20/20 15:39 Temperature Source Oral 02/20/20 15:39 Pulse 93 H 02/20/20 15:39 Respiratory Rate 15 02/20/20 15:39 Respiratory Effort Non-Labored 02/20/20 15:45 Blood Pressure 120/73 02/20/20 15:39 Blood Pressure Position Supine 02/20/20 15:39 Pulse Oximetry 99 02/20/20 15:39 Oxygen Delivery Method Room Air 02/20/20 15:39 Oxygen Flow Rate 0 02/20/20 15:39 Pain Level 8 02/20/20 15:39
[2020-02-20] MEDS: Normal Saline 1,000 ML 1000 ML IV (16:00)
[2020-02-20 16:05] LABS: Abs Immature Grans 0.02 10^3/uL (0.0-0.06); Absolute Basophil Count 0.04 10^3/uL (0.0-0.2); Absolute Eosinophil Count 0.13 10^3/uL (0.0-0.7); Basophils % 0.4; Eosinophils % 1.2; HCT 43.5 % (36.0-46.0); HGB 15.1 g/dL (11.2-15.7); Immature Grans % 0.2; Lymphocytes % 15.9; MCH 32.1 pg (27.0-33.0); MCHC 34.7 % (32.0-36.0); MCV 92.6 fL (80-95); MPV 10.5 fL (8.0-11.0); Monocytes % 7.5; Neutrophils % 74.8; Nucleated RBC 0 %; Platelet Count 277 10^3/uL (130-400); RDW 13.5 % (11.7-14.6); WBC 10.69 10^3/uL (4.4-10.8)
[2020-02-20] MEDS: Ondansetron 4 MG/2 ML VIAL IVP (16:05)
[2020-02-20 16:08] LABS: Lactate 2.4 mmol/L (0.6-1.4)
[2020-02-20] MEDS: Normal Saline Flush 10 ML SYR IVP ×2 (16:14→17:04)
[2020-02-20 16:15] LABS: Bilirubin Small (Negative); Blood Trace-intact (Negative); Clarity Cloudy (Clear); Glucose Negative (Negative); Ketones Trace mg/dL (Negative); Leukocyte Esterase Trace (Negative); Nitrite Positive (Negative); Specific Gravity >= 1.030 (1.005-1.025); Urobilinogen 0.2 EU/dL (Up TO 0.2); pH 5.5 (5-8)
--- NOTE | 2020-02-20 16:15 | RT.EKG_ITS ---
APPROVED REPORT Exam: Resting ECG Patient Location: E HR:71 bpm ECG Measurements Heart Rate 71 AXIS NM 197 P 11 QRSd 98 QRS -22 QT 448 T -2 QTc 488 Conclusion Sinus rhythm...normal P axis, V-rate 60- 99
[2020-02-20 16:17] LABS: Lipase 102 U/L (73-393)
[2020-02-20 16:25] LABS: ALT 30 U/L (14-59); AST 18 U/L (15-37); Albumin 4.3 g/dL (3.4-5.0); Alkaline Phosphatase 83 U/L (46-116); BUN 15 mg/dL (7-18); CREATININE 0.99 mg/dL (0.55-1.02); Calcium 9.6 mg/dL (8.5-10.1); Chloride 100 mmol/L (98-107); Estimated GFR 54.25 (mL/min/1.73m2); Glucose 125 mg/dL (74-106); Magnesium 1.6 mg/dL (1.8-2.4); Potassium 3.6 mmol/L (3.5-5.1); Sodium 137 mmol/L (136-145); Total Protein 8.1 g/dL (6.4-8.2)
[2020-02-20 16:27] LABS: Bacteria Many HPF (Negative); C & S Indicated? No/Sq. Contamination; Casts Negative LPF (Negative); Crystals Negative HPF (Negative); Epithelial Cells Many HPF (Negative); Mucus Trace (Negative); RBC 0-2 HPF (0-2)
[2020-02-20 16:28] LABS: Troponin I < 0.05 ng/mL (<0.06)
--- NOTE | 2020-02-20 16:30 | DI.RAD_ITS ---
EXAM: XR PORTABLE CHEST AP CLINICAL HISTORY: weakness, vomiting TECHNIQUE: 2D digital imaging was performed. COMPARISON: CR,XR XR PORTABLE CHEST AP from 10/12/2019 FINDINGS: MEDIASTINUM: Normal. HEART: Normal. PULMONARY VASCULATURE: Normal. LUNGS: No focal consolidating infiltrates. PLEURAL SPACE: No pleural effusion or pneumothorax. BONE:Degenerative changes in the spine. OTHER FINDINGS:Normal. IMPRESSION: No acute pulmonary findings. DATA REPOSITORY: RADIATION DOSE DELIVERED:
[2020-02-20] MEDS: Omnipaque 350 MG/ML 100 ML BTL IJ (17:03)
[2020-02-20] MEDS: Normal Saline - Diluent 50 ML VIAL IV (17:04)
[2020-02-20] MEDS: Pantoprazole 40 MG VIAL IVP (17:50)
[2020-02-20] MEDS: Normal Saline 1,000 ML 150 ML IV (17:50)
[2020-02-20] MEDS: cefTRIAXone 1 GM/50 ML BAG IVPB (18:00)
--- NOTE | 2020-02-20 18:09 | W.PM.HP.N ---
Date of service: 02/20/20 Time of Service: 18:09 Assessment and Plan Assessment and plan (1) Diarrhea: Status: Acute Assessment and plan: Subacute diarrheal illness, usual broad ddx but timing WRT abx raises immediate question of C diff. Will check C diff, along with broader studies including bacteria, Giardia and WBC. In meantime unclear how, or if, UGI sxx and findings may relate or if this is separate issue. Theoretically inflammatory disease could produce multifocal lesions but no history of such and I think this is unlikely. More likely is coincidental issues. For UGI sxx will use bowel rest and PPI, would consider EGD, and by CT and history c/w acid related lesion. The low grade pyuria is noted. Not convinced this represents UTI, especially in setting of highly concentrated sample and patient having no sxx in this regard. Not sure we need to continue Rocephin but will await Cx results and consider further dosing. Reviewed ADs, requests DNR. History of Present Illness History of Present Illness Chief Complaint: diarrhea Narrative: 79 female reports one month of watery and painless diarrhea coming on shortly after short course Doxycycline for dental issue. In addition now reports separately one week of upper abdominal pain and several days of bilious vomiting when takes PO. States pain improves with AAs temporarily. In ER findings of note for absence of fever, normal white count and CT showing colonic diverticulosis and edema/thickening proximal duodenum. Also 5-10 WBC on U/A with SG > 1.030. Given dose Rocephin. Admitted for further eval and management. Note she had been down in [place] caring for her dying mother, but resides here in [place]. 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 Excised without incident. Benign pathology Irritable bowel syndrome Laryngopharyngeal reflux Mass of vulva R david labia. Obstructive sleep apnea Oral lesion Vaginal dryness, menopausal detention use of vaginal E2. Surgical History EGD - MAC (01/18/15) DR.CHRIS ADORNO Extraction of cataract 08/22/15; LEFT EYE 09/05/15; RIGHT EYE History of appendectomy History of cataract removal with insertion of prosthetic lens (09/13/15) History of cataract surgery History of colonoscopy History of esophagogastroduodenoscopy History of total knee arthroplasty LEFT TKA 04/28/16 Family History Mother No problems noted. Social History Smoking/Tobacco Use Status: Former Tobacco Use Alcohol Intake: current Alcohol Intake frequency: 0-2 drinks per day Alcohol type: hard liquor Drug use: Never Do you feel safe at home: Yes Do you feel safe in your relationship?: Yes Female Reproductive History Menstrual Menopause type: natural (48yo) History History 0 Para Hx # Term Pregnancies Multiple births Hx # Pregnancies Ectopic pregnancies AB induced Hx Number of Living Children AB spontaneous Meds Home Medications and Allergies Home Medications Medication Instructions Recorded Confirmed Type acetaminophen [Tylenol] 650 mg PO Q4H PRN PRN tab 04/01/16 02/20/20 Rx esomeprazole magnesium 40 mg 40 mg PO DAILY #90 tab-cap 10/06/18 02/20/20 Rx capsule,delayed release aspirin 81 mg tablet,delayed 81 mg PO DAILY #180 tab 08/31/19 02/20/20 Rx release estradiol 1 gm VG .COMPLEX #42.5 gm 10/05/19 02/20/20 Rx loratadine 10 mg disintegrating 10 mg PO PRN #30 tab-cap 01/24/20 02/20/20 Rx tablet sertraline 50 mg tablet 50 mg PO DAILY #30 tab 01/24/20 02/20/20 Rx zaleplon 10 mg capsule 20 mg PO HS #60 cap 01/24/20 02/20/20 Rx tramadol 50 mg tablet 50 mg PO BID PRN #30 tab-cap 01/29/20 02/20/20 Rx Allergies Allergy/AdvReac Type Severity Reaction Status Date / Time No Known Allergies Allergy Verified 02/20/20 15:47 Exam Narrative Exam Narrative: 141/92, 75, 36.8, 21, 99% RA. HEENT atraumatic; neck supple; lungs clear; heart RRR; abdomen + BS, soft, mild epigastric tenderness w/o rebound; rectal deferred; extremities w/o edema, neuro Ox3, non focal Results Labs Result diagrams: 02/20/20 15:45 02/20/20 15:45 Labs: Laboratory Results - last 24 hr 02/20/20 02/20/20 02/20/20 15:45 15:45 15:45 WBC 10.69 RBC 4.70 Hgb 15.1 Hct 43.5 MCV 92.6 MCH 32.1 MCHC 34.7 RDW 13.5 Plt Count 277 MPV 10.5 Immature Gran % 0.2 Neutrophils % 74.8 Lymphocytes % 15.9 Monocytes % 7.5 Eosinophils % 1.2 Basophils % 0.4 Nucleated RBC % 0 Absolute Neutrophils 8.00 H Absolute Lymphocytes 1.70 Absolute Monocytes 0.80 Absolute Eosinophils 0.13 Absolute Basophils 0.04 VBG Lactate 2.4 H* Sodium 137 Potassium 3.6 Chloride 100 Carbon Dioxide 22.0 Anion Gap 15.0 H BUN 15 Creatinine 0.99 Estimated GFR/1.73 m2 54.25 Glucose 125 H Calcium 9.6 Magnesium 1.6 L Total Bilirubin 1.0 AST 18 ALT 30 Alkaline Phosphatase 83 Troponin I < 0.05 Total Protein 8.1 Albumin 4.3 Lipase Urine Color Urine Clarity Urine pH Ur Specific [place] Urine Protein Urine Ketones Urine Blood Urine Nitrite Urine Bilirubin Urine Urobilinogen Ur Leukocyte Esterase Urine RBC Urine WBC Ur Epithelial Cells Urine Crystals Urine Bacteria Urine Casts Urine Mucus Ur Culture Indicated? Urine Glucose COVID-19 PCR Nasopharyn COVID-19 PCR Ref Test Perform Site 02/20/20 02/20/20 02/20/20 15:45 15:45 15:55 WBC RBC Hgb Hct MCV MCH MCHC RDW Plt Count MPV Immature Gran % Neutrophils % Lymphocytes % Monocytes % Eosinophils % Basophils % Nucleated RBC % Absolute Neutrophils Absolute Lymphocytes Absolute Monocytes Absolute Eosinophils Absolute Basophils VBG Lactate Sodium Potassium Chloride Carbon Dioxide Anion Gap BUN Creatinine Estimated GFR/1.73 m2 Glucose Calcium Magnesium Total Bilirubin AST ALT Alkaline Phosphatase Troponin I Total Protein Albumin Lipase 102 Urine Color Yellow Urine Clarity Cloudy Urine pH 5.5 Ur Specific [place] >= 1.030 H Urine Protein 100 H Urine Ketones Trace H Urine Blood Trace-intact H Urine Nitrite Positive H Urine Bilirubin Small H Urine Urobilinogen 0.2 Ur Leukocyte Esterase Trace H Urine RBC 0-2 Urine WBC 5-10 Ur Epithelial Cells Many Urine Crystals Negative Urine Bacteria Many Urine Casts Negative Urine Mucus Trace Ur Culture Indicated? No/sq. contamination Urine Glucose Negative COVID-19 PCR Cancelled Nasopharyn COVID-19 PCR Cancelled Ref Test Perform Site Cancelled Last Vital Signs Temp 36.8 C 02/20/20 15:39 Pulse 75 02/20/20 18:00 Resp 21 02/20/20 18:00 BP 141/92 H 02/20/20 18:00 Pulse Ox 99 02/20/20 18:00 COVID-19 Screening Have you,or household,traveled outside [place] in last 14 days?: Yes Had IN PERSON contact w/suspected or confirmed C-19 person: No
[2020-02-20] MEDS: Lactated Ringers 1,000 ML 125 ML IV (20:03)
[2020-02-20] MEDS: Zolpidem 5 MG TAB PO (22:32)
[2020-02-21] MEDS: Lactated Ringers 1,000 ML 125 ML IV ×4 (03:51→20:41)
[2020-02-21 06:47] LABS: HCT 36.2 % (36.0-46.0); HGB 12.2 g/dL (11.2-15.7); MCH 32.2 pg (27.0-33.0); MCHC 33.7 % (32.0-36.0); MCV 95.5 fL (80-95); MPV 10.7 fL (8.0-11.0); Platelet Count 191 10^3/uL (130-400); RBC 3.79 10^6/uL (3.93-5.22); RDW 13.8 % (11.7-14.6); RDW-SD 48.4 fL
[2020-02-21 06:51] LABS: Anion Gap 8.3 mmol/L (3-11); BUN 14 mg/dL (7-18); CO2 25.7 mmol/L (21.0-32.0); CREATININE 0.88 mg/dL (0.55-1.02); Calcium 8.3 mg/dL (8.5-10.1); Chloride 106 mmol/L (98-107); Glucose 99 mg/dL (74-106); Potassium 3.4 mmol/L (3.5-5.1); Sodium 140 mmol/L (136-145)
[2020-02-21 08:05] VITALS: O2SAT 96
[2020-02-21] MEDS: Sertraline 50 MG TAB PO (08:10)
[2020-02-21 08:19] VITALS: BP 110/70; PULSE 64; RESP 18; TEMP 36.5; O2SAT 96
[2020-02-21 11:42] VITALS: BP 136/74; PULSE 64; RESP 18; TEMP 36.5; O2SAT 97
--- NOTE | 2020-02-21 11:43 | PHACLINREV_ITS ---
Pharmacy Admission Review - Admission Clinical Review (Last Reviewed 02/20/20 @ 18:15 by Jerry Gonzales MD) Diarrhea (Acute) Acute UTI (Acute) Duodenitis (Acute) No Known Allergies Allergy (Verified 02/20/20 15:47) Height 5 ft 3.5 in Weight 84.7 kg Diarrhea, Abdominal pain - Comments Comments/Follow Ups: Surgical consult for possible scope during this admission as imaging shows thickening duodenum. Diarrhea could be from recent Doxycycline antibiotic use from dental procedure, although according to external med history, do not see a recent prescription ordered. C.Diff/Lactoferrin culture and heme test pending stool sample-no diarrhea overnight. Also sendout orders for Giardia, other fecal bacteria. Did receive Rocephin x 1 dose in ED. Covid test pending as patient was visiting mom in [place] (today is reported as day #14 since returning to [place]). Diet is NPO pending surgical consult - Renal Dosing Renal Dosing: BUN 14 mg/dL (7-18) 02/21/20 06:27 Creatinine 0.88 mg/dL (0.55-1.02) 02/21/20 06:27 Medications needing adjustments: Reviewed (CrCl~43.5ml/min-no med adjustments) - Anticoagulation Anticoagulation: Hgb 12.2 g/dL (11.2-15.7) D 02/21/20 06:27 Hct 36.2 % (36.0-46.0) 02/21/20 06:27 Plt Count 191 10^3/uL (130-400) 02/21/20 06:27 Creatinine 0.88 mg/dL (0.55-1.02) 02/21/20 06:27 DVT Prohphylaxis: Reviewed (none-will ask MD, low dose ASA which patient refused) - Opiate Usage Evaluate Pain Scale/Pains Meds: Reviewed (Tramadol for pain 07/18) Scheduled Bowel Reg ordered if on Opiates?: No (reportedly diarrhea) - Relevant Labs Sodium 140 mmol/L (136-145) 02/21/20 06:27 Potassium 3.4 mmol/L (3.5-5.1) L 02/21/20 06:27 Chloride 106 mmol/L (98-107) 02/21/20 06:27 Magnesium 1.6 mg/dL (1.8-2.4) L 02/20/20 15:45 Electrolytes, C-Reactive P, ESR: Reviewed (Will need Potassium replacement today) - DM Control DM Control: Glucose 99 mg/dL (74-106) 02/21/20 06:27 Insulin Dosing: N/A - Heart Failure/IN Heart Failure/IN: Troponin I < 0.05 ng/mL (<0.06) 02/20/20 15:45 EF%, JESSENIA's, B-Blockers, Diuretics: N/A - BP Control BP Control: Blood Pressure 136/74 Blood Pressure 110/70 If elevated: N/A (no BP issues/no BP meds) - Qtc Review If Elevated: Reviewed (QTC 488 (Sertraline/Tramadol)) - IV to PO Switch IV Medications: Reviewed (Pantoprazole & Ondansetron currently IV) - Home Meds Home Med List reviewed: Reviewed Relevent Home Meds Not ordered & why?: Amitriptyline, Celebrex, Nexium (Protonix IV), Old Rx's: Estradiol Vag, Fluconazole, Fluoxetine, Gabapentin,Loratidine, Methylphenidate, Ranitidine, Triamcinolone, Valacyclovir, Zaleplon, Naloxone NS- will clean up Home med list - Current meds Current Medication Order Review: Reviewed (Sertraline and Tramadol- QTC prolongation although not using Tramadol)
--- NOTE | 2020-02-21 13:52 | W.PM.PROGNOT ---
Date of Service Date of service: 02/21/20 Time of Service: 13:52 Assessment and Plan Assessment and plan (1) Duodenitis: Status: Acute Assessment and plan: NPO. General surgery consulted for an EGD. Continue PPI. Check hematest. (2) Diarrhea: Status: Acute Assessment and plan: Agree that C diff and COVID-19 need to be ruled out. Continue IVF, replete low potassium and magnesium. No stools today are reassuring. We are consulting general surgery for an EGD for her suspected duodenitis, and the patient may benefit from a colonoscopy as well, but the colonoscopy could likely be done as an outpatient. (3) Person under investigation for COVID-19: Status: Acute Assessment and plan: await COVID-19 PCR (4) COPD (chronic obstructive pulmonary disease): Status: Chronic Assessment and plan: Not in acute exacerbation. No change in tx. Qualifiers: COPD type: unspecified COPD Qualified Code(s): J44.9 - Chronic obstructive pulmonary disease, unspecified (5) DVT prophylaxis: Status: Acute Assessment and plan: TEDs/SCDS. hold chemical DVT ppx until hemoccult status known. (6) Discharge planning issues: Status: Acute Assessment and plan: DNR/DNI NOt yet ready for discharge. Subjective Subjective Patient reports: no new complaints Interval history since last seen: Ms Estrada states she is feeling a little bit better. She has not actually had diarrhea since arrival to the floor, her nausea is better. She denies dizziness, chest pain, shortness of breath. Her abdomen feels sore throughout. She describes black/reddish stools at home. She states that she has had EGDs before because she has a h/o stomach problems, but she cannot definitively tell me what those were. She thinks she is interested in clear liquids. Exam Narrative Exam Narrative: General: Pleasant elderly female, hard of hearing, A&Ox3, pale, looks tired. HEENT: EOMI, dry MM Heart: RRR, no m/r/g Lungs: CTAB Abdomen: soft, mildly distended and mildly diffusely tender, though there is more tenderness in the epigastrium Extremities: no e/c/c BLE's, 1+ pedal pulses B Objective Last Vital Signs Temp 36.5 C 02/21/20 11:42 Pulse 64 02/21/20 11:42 Resp 18 02/21/20 11:42 BP 136/74 02/21/20 11:42 Pulse Ox 97 02/21/20 11:42 Laboratory Results - last 24 hr 02/20/20 02/20/20 02/20/20 15:45 15:45 15:45 WBC 10.69 RBC 4.70 Hgb 15.1 Hct 43.5 MCV 92.6 MCH 32.1 MCHC 34.7 RDW 13.5 Plt Count 277 MPV 10.5 Immature Gran % 0.2 Neutrophils % 74.8 Lymphocytes % 15.9 Monocytes % 7.5 Eosinophils % 1.2 Basophils % 0.4 Nucleated RBC % 0 Absolute Neutrophils 8.00 H Absolute Lymphocytes 1.70 Absolute Monocytes 0.80 Absolute Eosinophils 0.13 Absolute Basophils 0.04 VBG Lactate 2.4 H* Sodium 137 Potassium 3.6 Chloride 100 Carbon Dioxide 22.0 Anion Gap 15.0 H BUN 15 Creatinine 0.99 Estimated GFR/1.73 m2 54.25 Glucose 125 H Calcium 9.6 Magnesium 1.6 L Total Bilirubin 1.0 AST 18 ALT 30 Alkaline Phosphatase 83 Troponin I < 0.05 Total Protein 8.1 Albumin 4.3 Lipase Urine Color Urine Clarity Urine pH Ur Specific [place] Urine Protein Urine Ketones Urine Blood Urine Nitrite Urine Bilirubin Urine Urobilinogen Ur Leukocyte Esterase Urine RBC Urine WBC Ur Epithelial Cells Urine Crystals Urine Bacteria Urine Casts Urine Mucus Ur Culture Indicated? Urine Glucose COVID-19 PCR Nasopharyn COVID-19 PCR SARS-CoV-2 Source SARS-CoV-2 (PCR) Patient Race Patient Ethnicity Ref Test Method Ref Test Perform Site 02/20/20 02/20/20 02/20/20 15:45 15:45 15:55 WBC RBC Hgb Hct MCV MCH MCHC RDW Plt Count MPV Immature Gran % Neutrophils % Lymphocytes % Monocytes % Eosinophils % Basophils % Nucleated RBC % Absolute Neutrophils Absolute Lymphocytes Absolute Monocytes Absolute Eosinophils Absolute Basophils VBG Lactate Sodium Potassium Chloride Carbon Dioxide Anion Gap BUN Creatinine Estimated GFR/1.73 m2 Glucose Calcium Magnesium Total Bilirubin AST ALT Alkaline Phosphatase Troponin I Total Protein Albumin Lipase 102 Urine Color Yellow Urine Clarity Cloudy Urine pH 5.5 Ur Specific [place] >= 1.030 H Urine Protein 100 H Urine Ketones Trace H Urine Blood Trace-intact H Urine Nitrite Positive H Urine Bilirubin Small H Urine Urobilinogen 0.2 Ur Leukocyte Esterase Trace H Urine RBC 0-2 Urine WBC 5-10 Ur Epithelial Cells Many Urine Crystals Negative Urine Bacteria Many Urine Casts Negative Urine Mucus Trace Ur Culture Indicated? No/sq. contamination Urine Glucose Negative COVID-19 PCR Cancelled Nasopharyn COVID-19 PCR Cancelled SARS-CoV-2 Source Cancelled SARS-CoV-2 (PCR) Cancelled Patient Race Cancelled Patient Ethnicity Cancelled Ref Test Method Cancelled Ref Test Perform Site Cancelled 02/21/20 02/21/20 06:27 06:27 WBC 6.80 D RBC 3.79 L Hgb 12.2 D Hct 36.2 MCV 95.5 H MCH 32.2 MCHC 33.7 RDW 13.8 Plt Count 191 MPV 10.7 Immature Gran % Neutrophils % Lymphocytes % Monocytes % Eosinophils % Basophils % Nucleated RBC % Absolute Neutrophils Absolute Lymphocytes Absolute Monocytes Absolute Eosinophils Absolute Basophils VBG Lactate Sodium 140 Potassium 3.4 L Chloride 106 Carbon Dioxide 25.7 Anion Gap 8.3 BUN 14 Creatinine 0.88 Estimated GFR/1.73 m2 >= 60.00 Glucose 99 Calcium 8.3 L Magnesium Total Bilirubin AST ALT Alkaline Phosphatase Troponin I Total Protein Albumin Lipase Urine Color Urine Clarity Urine pH Ur Specific [place] Urine Protein Urine Ketones Urine Blood Urine Nitrite Urine Bilirubin Urine Urobilinogen Ur Leukocyte Esterase Urine RBC Urine WBC Ur Epithelial Cells Urine Crystals Urine Bacteria Urine Casts Urine Mucus Ur Culture Indicated? Urine Glucose COVID-19 PCR Nasopharyn COVID-19 PCR SARS-CoV-2 Source SARS-CoV-2 (PCR) Patient Race Patient Ethnicity Ref Test Method Ref Test Perform Site
[2020-02-21] MEDS: POTASSIUM CHLORIDE 20 MEQ/100 ML BAG 50 MEQ IVPB ×2 (14:15→17:31)
[2020-02-21] MEDS: MAGNESIUM SULFATE 2 GM/50 ML BAG IVPB (14:15)
[2020-02-21 14:25] LABS: COVID-19 RT-PCR UVMMC Result Negative (Negative)
[2020-02-21 14:35] VITALS: BP 136/74; PULSE 64; RESP 18; TEMP 36.5; O2SAT 97
--- NOTE | 2020-02-21 14:36 | W.SURGCON ---
Date of service: 02/21/20 Time of Service: 14:36 Assessment and Plan Assessment and plan (1) Duodenitis: Status: Acute Assessment and plan: I advised EGD. The procedure and risks of perforation with need for surgery discussed. The patient agrees to proceed. Stool culture results pending. Can consider colonoscopy based on results, possibly as outpatient. History of Present Illness Narrative: This patient presented to the ER last night with several day history of belching, upper abdominal soreness and bilious emesis. She also notes a one month history of loose stools that are brownish/reddish. Have been dark at times related to antacid use. No fever. Does not take a lot of NSAIDS. EGD in the past at [facility] normal but these symptoms are different. Colonoscopy [address] reviewed, showed duodenitis or less likely duodenal diverticulitis. 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 Excised without incident. Benign pathology Irritable bowel syndrome Laryngopharyngeal reflux Mass of vulva R david labia. 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 Surgical History EGD - MAC (01/18/15) DR.CHRIS ADORNO Extraction of cataract 08/22/15; LEFT EYE 09/05/15; RIGHT EYE History of appendectomy History of cataract removal with insertion of prosthetic lens (09/13/15) History of cataract surgery History of colonoscopy History of esophagogastroduodenoscopy History of total knee arthroplasty LEFT TKA 04/28/16 Family History Mother No problems noted. Social History Smoking/Tobacco Use Status: Former Tobacco Use Alcohol Intake: current Alcohol Intake frequency: 0-2 drinks per day Alcohol type: hard liquor Drug use: Never Do you feel safe at home: Yes Do you feel safe in your relationship?: Yes Female Reproductive History Menstrual Menopause type: natural (48yo) History History 0 Para Hx # Term Pregnancies Multiple births Hx # Pregnancies Ectopic pregnancies AB induced Hx Number of Living Children AB spontaneous Exam Narrative Exam Narrative: No acute distress Lungs CTA Heart RRR Abdomen slightly distended but soft. Moderate epigastric and RUQ tenderness. No peritonitis. Results Last Vital Signs Temp 97.7 F 02/21/20 11:42 Pulse 64 02/21/20 11:42 Resp 18 02/21/20 11:42 BP 136/74 02/21/20 11:42 Pulse Ox 97 02/21/20 11:42 Labs Result diagrams: 02/21/20 06:27 02/21/20 06:27 Labs: Laboratory Results - last 24 hr 02/20/20 02/20/20 02/20/20 15:45 15:45 15:45 WBC 10.69 RBC 4.70 Hgb 15.1 Hct 43.5 MCV 92.6 MCH 32.1 MCHC 34.7 RDW 13.5 Plt Count 277 MPV 10.5 Immature Gran % 0.2 Neutrophils % 74.8 Lymphocytes % 15.9 Monocytes % 7.5 Eosinophils % 1.2 Basophils % 0.4 Nucleated RBC % 0 Absolute Neutrophils 8.00 H Absolute Lymphocytes 1.70 Absolute Monocytes 0.80 Absolute Eosinophils 0.13 Absolute Basophils 0.04 VBG Lactate 2.4 H* Sodium 137 Potassium 3.6 Chloride 100 Carbon Dioxide 22.0 Anion Gap 15.0 H BUN 15 Creatinine 0.99 Estimated GFR/1.73 m2 54.25 Glucose 125 H Calcium 9.6 Magnesium 1.6 L Total Bilirubin 1.0 AST 18 ALT 30 Alkaline Phosphatase 83 Troponin I < 0.05 Total Protein 8.1 Albumin 4.3 Lipase Urine Color Urine Clarity Urine pH Ur Specific [place] Urine Protein Urine Ketones Urine Blood Urine Nitrite Urine Bilirubin Urine Urobilinogen Ur Leukocyte Esterase Urine RBC Urine WBC Ur Epithelial Cells Urine Crystals Urine Bacteria Urine Casts Urine Mucus Ur Culture Indicated? Urine Glucose COVID-19 PCR Nasopharyn COVID-19 PCR SARS-CoV-2 Source SARS-CoV-2 (PCR) Patient Race Patient Ethnicity Ref Test Method Ref Test Perform Site 02/20/20 02/20/20 02/20/20 15:45 15:45 15:55 WBC RBC Hgb Hct MCV MCH MCHC RDW Plt Count MPV Immature Gran % Neutrophils % Lymphocytes % Monocytes % Eosinophils % Basophils % Nucleated RBC % Absolute Neutrophils Absolute Lymphocytes Absolute Monocytes Absolute Eosinophils Absolute Basophils VBG Lactate Sodium Potassium Chloride Carbon Dioxide Anion Gap BUN Creatinine Estimated GFR/1.73 m2 Glucose Calcium Magnesium Total Bilirubin AST ALT Alkaline Phosphatase Troponin I Total Protein Albumin Lipase 102 Urine Color Yellow Urine Clarity Cloudy Urine pH 5.5 Ur Specific [place] >= 1.030 H Urine Protein 100 H Urine Ketones Trace H Urine Blood Trace-intact H Urine Nitrite Positive H Urine Bilirubin Small H Urine Urobilinogen 0.2 Ur Leukocyte Esterase Trace H Urine RBC 0-2 Urine WBC 5-10 Ur Epithelial Cells Many Urine Crystals Negative Urine Bacteria Many Urine Casts Negative Urine Mucus Trace Ur Culture Indicated? No/sq. contamination Urine Glucose Negative COVID-19 PCR Cancelled Nasopharyn COVID-19 PCR Cancelled SARS-CoV-2 Source Cancelled SARS-CoV-2 (PCR) Cancelled Patient Race Cancelled Patient Ethnicity Cancelled Ref Test Method Cancelled Ref Test Perform Site Cancelled 02/20/20 02/21/20 02/21/20 22:31 06:27 06:27 WBC 6.80 D RBC 3.79 L Hgb 12.2 D Hct 36.2 MCV 95.5 H MCH 32.2 MCHC 33.7 RDW 13.8 Plt Count 191 MPV 10.7 Immature Gran % Neutrophils % Lymphocytes % Monocytes % Eosinophils % Basophils % Nucleated RBC % Absolute Neutrophils Absolute Lymphocytes Absolute Monocytes Absolute Eosinophils Absolute Basophils VBG Lactate Sodium 140 Potassium 3.4 L Chloride 106 Carbon Dioxide 25.7 Anion Gap 8.3 BUN 14 Creatinine 0.88 Estimated GFR/1.73 m2 >= 60.00 Glucose 99 Calcium 8.3 L Magnesium Total Bilirubin AST ALT Alkaline Phosphatase Troponin I Total Protein Albumin Lipase Urine Color Urine Clarity Urine pH Ur Specific [place] Urine Protein Urine Ketones Urine Blood Urine Nitrite Urine Bilirubin Urine Urobilinogen Ur Leukocyte Esterase Urine RBC Urine WBC Ur Epithelial Cells Urine Crystals Urine Bacteria Urine Casts Urine Mucus Ur Culture Indicated? Urine Glucose COVID-19 PCR Negative Nasopharyn COVID-19 PCR Not Applicable SARS-CoV-2 Source SARS-CoV-2 (PCR) Patient Race Patient Ethnicity Ref Test Method Ref Test Perform Site [facility] lab
--- NOTE | 2020-02-21 15:01 | PDOC.CMIN ---
- If Service Date Differs Date of service: 02/21/20 Time of Service: 15:01 Care Management Initial Assess REASON FOR HOSPITALIZATION:: Diarrhea, Abdominal Pain PAST MEDICAL HISTORY/PAST SURGICAL HISTORY:: Medical History (Updated 02/20/20 @ 18:18 by Jerry Gonzales MD). Chronic pain syndrome. COPD (chronic obstructive pulmonary disease). Exanthem due to varicella. Fibroma. 1.5 cm mass-left labia minora. Excised without incident. Benign pathology. Irritable bowel syndrome. Laryngopharyngeal reflux. Mass of vulva. R david labia. Obstructive sleep apnea. Oral lesion. 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 Surgical History . EGD - MAC (01/18/15). DR.CHRIS ADORNO. Extraction of cataract. 08/22/15; LEFT EYE. 09/05/15; RIGHT EYE. History of appendectomy. History of cataract removal with insertion of prosthetic lens (09/13/15). History of cataract surgery. History of colonoscopy. History of esophagogastroduodenoscopy. History of total knee arthroplasty. LEFT TKA. 04/28/16 PREVIOUS FUNCTIONAL STATUS/SOCIAL/FAMILY SUPPORTS:: Lesa lives in [place], [facility]. She travels to and from [place]. She is independent at baseline. CURRENT FUNCTIONAL STATUS:: Lesa is currently under Covid precautions due to her recent travel from [place]. Tomorrow will be her 14th day, and once her covid test result is negative CM will be able to meet with her. Per report, Lesa had a surgical consultation today, and the surgeon advised having an EGD, which she will have done today. CM will continue to follow. ADVANCE DIRECTIVES:: None on file. Has patient been provided with info about the portal/API?: Yes Did the patient sign up for the portal?: Yes (previously) CODE STATUS:: DNR/DNI INSURANCE COVERAGE / FINANCIAL ISSUES:: [facility]/ [employer] CURRENT HOME/COMMUNITY SERVICES/EQUIPMENT:: unknown PRIMARY CARE PHYSICIAN:: Gaurang Kendall POTENTIAL DISCHARGE NEEDS:: Evaluations for further needs, follow up appointments PATIENT/FAMILY EDUCATION NEEDS:: Review discharge instructions regarding activity levels and medications, discussion of self care needs including ask me three. ANTICIPATED BARRIERS TO DISCHARGE:: None identified at this time. TRANSPORTATION:: via private vehicle by family PLAN:: Anticipate Lesa will return home when medically cleared. Further evaluations to be made to determine need for services. She will follow up with her PCP and discharge plan of care. CM will continue to follow.
--- NOTE | 2020-02-21 15:05 | STOM_PTH ---
PATIENT: Lesa Metz LOC: [id number]#:[id number] AGE/SX: 79/F ROOM: RE02/20/[address]: Jerry Gonzales : 1940 BED: A DIS: 02/22/2020 SPEC #: [id number] RECD: 02/21/20 17:26 STATUS: ELGIN REQ #: [id number] ESME: 02/21/20 15:[address]: Jerry Gonzales DEPT: Surgical Specimen RECD BY: Sandra Motley ENTERED: 02/21/20 17:27 SP TYPE: STOMACH OTHR DR: MD Beryl Gregorio MD Tissues: 1 - BIOPSY BOWEL 2 - STOMACH BIOPSY Procedures: GROSS AND MICRO LEVEL 4 Comments: [id number]
--- NOTE | 2020-02-21 15:23 | W.PM.ENDDOP ---
Date of service: 02/21/20 Time of Service: 15:23 Endoscopy Report DATE OF PROCEDURE: 02/21/20 PRE-OP DIAGNOSIS: Vomiting, abnormal CT POST-OP DIAGNOSIS: other (Shallow duodenal ulcer, gastritis) PROCEDURE: EGD with biopsies of duodenum and gastric antrum SURGEON: Beryl Rich ANESTHESIA: MAC INDICATIONS: This 79 year old woman presents with vomiting, increased belching and epigastric/RUQ pain. CT showed duodenitis. PROCEDURE DESCRIPTION: The patient was placed in the left lateral position and propofol titrated to sedation. The endoscope was advanced into the esophagus under direct visualization. The scope was passed through the stomach and into the duodenum to the extent of the scope. I reached the third portion of the duodenum where there was mild erythema of the mucosa. Biopsies were taken from this region. Between the bulb and second portion of the duodenum was a shallow chronic appearing ulcer with no bleeding or visible vessel. The periphery was biopsied. The stomach itself showed moderate gastritis most prominent in the antrum. Retroflexed view of the fundus and lesser curvature was unremarkable. Biopsies were taken from the gastric antrum. The GE junction was inspected and showed no significant stricture, inflammation, masses or Barretts. The scope was slowly withdrawn with no other esophageal lesions found. The patient tolerated the procedure well and was stable to recovery.
[2020-02-21] MEDS: Sucralfate 1 GM TAB PO ×2 (16:45→21:12)
[2020-02-21] MEDS: Normal Saline Flush 10 ML SYR IVP (18:09)
[2020-02-21] MEDS: Pantoprazole 40 MG VIAL IVP (18:10)
[2020-02-21] MEDS: Zolpidem 5 MG TAB PO (21:12)
[2020-02-21] MEDS: Acetaminophen 325 MG TAB 650 MG PO (21:19)
[2020-02-21 21:31] VITALS: BP 158/84; PULSE 68; RESP 18; TEMP 37; O2SAT 98
[2020-02-21 23:40] VITALS: BP 147/88; PULSE 67; RESP 18; TEMP 36.4; O2SAT 94
[2020-02-22] MEDS: Zolpidem 5 MG TAB PO (00:03)
[2020-02-22 03:05] VITALS: BP 139/70; PULSE 65; RESP 18; TEMP 35.4; O2SAT 96
[2020-02-22] MEDS: Lactated Ringers 1,000 ML 125 ML IV (04:37)
[2020-02-22] MEDS: Pantoprazole 40 MG VIAL IVP (07:02)
[2020-02-22] MEDS: Normal Saline Flush 10 ML SYR IVP ×2 (07:02→10:43)
[2020-02-22 07:04] LABS: Abs Immature Grans 0.01 10^3/uL (0.0-0.06); Absolute Basophil Count 0.03 10^3/uL (0.0-0.2); Absolute Eosinophil Count 0.39 10^3/uL (0.0-0.7); Absolute Lymphocyte Count 1.34 10^3/uL (1.2-3.4); Absolute Monocyte Count 0.41 10^3/uL (0.1-0.8); Basophils % 0.6; Eosinophils % 8.3; HGB 11.6 g/dL (11.2-15.7); Immature Grans % 0.2; Lymphocytes % 28.6; MCH 32.2 pg (27.0-33.0); MCHC 34.1 % (32.0-36.0); MCV 94.4 fL (80-95); MPV 10.9 fL (8.0-11.0); Monocytes % 8.8; Neutrophils % 53.5; Nucleated RBC 0 %; Platelet Count 166 10^3/uL (130-400); RDW 13.3 % (11.7-14.6); RDW-SD 45.6 fL; WBC 4.68 10^3/uL (4.4-10.8)
[2020-02-22 07:14] LABS: BUN 7 mg/dL (7-18); CREATININE 0.74 mg/dL (0.55-1.02); Calcium 8.4 mg/dL (8.5-10.1); Chloride 105 mmol/L (98-107); Glucose 98 mg/dL (74-106); Magnesium 1.9 mg/dL (1.8-2.4); Potassium 3.5 mmol/L (3.5-5.1); Sodium 140 mmol/L (136-145)
[2020-02-22 07:37] VITALS: BP 136/75; PULSE 60; RESP 19; TEMP 36.4; O2SAT 96
[2020-02-22] MEDS: Sertraline 50 MG TAB PO (07:57)
[2020-02-22] MEDS: Sucralfate 1 GM TAB PO ×2 (07:57→12:15)
--- NOTE | 2020-02-22 10:07 | PGE_ITS ---
Date of Service Date of service: 02/22/20 Time of Service: 10:07 Assessment and Plan Assessment and plan (1) Duodenitis: Status: Acute Assessment and plan: s/p EGD yesterday on 02/20. No BMs. Epigastric soreness. Will trial bland diet. Subjective Subjective Interval history since last seen: Patient reports that she is feeling well this morning. No BMs. Expresses mild, continued epigastric soreness. Exam Const General: cooperative, healthy appearing and comfortable Orientation: alert and oriented x3 Resp Effort & Inspection: normal respiratory effort, no audible wheezes and no cough Objective Last Vital Signs Temp 36.4 C L 02/22/20 07:37 Pulse 60 02/22/20 07:37 Resp 19 02/22/20 07:37 BP 136/75 02/22/20 07:37 Pulse Ox 96 02/22/20 07:37 Laboratory Results - last 24 hr 02/20/20 02/20/20 02/22/20 15:55 22:31 06:25 WBC RBC Hgb Hct MCV MCH MCHC RDW Plt Count MPV Immature Gran % Neutrophils % Lymphocytes % Monocytes % Eosinophils % Basophils % Nucleated RBC % Absolute Neutrophils Absolute Lymphocytes Absolute Monocytes Absolute Eosinophils Absolute Basophils Sodium 140 Potassium 3.5 Chloride 105 Carbon Dioxide 28.0 Anion Gap 7.0 BUN 7 Creatinine 0.74 Estimated GFR/1.73 m2 >= 60.00 Glucose 98 Calcium 8.4 L Magnesium 1.9 COVID-19 PCR Negative Nasopharyn COVID-19 PCR Not Applicable SARS-CoV-2 Source Cancelled SARS-CoV-2 (PCR) Cancelled Patient Race Cancelled Patient Ethnicity Cancelled Ref Test Method Cancelled Ref Test Perform Site [facility] 02/22/20 06:25 WBC 4.68 D RBC 3.60 L Hgb 11.6 Hct 34.0 L MCV 94.4 MCH 32.2 MCHC 34.1 RDW 13.3 Plt Count 166 MPV 10.9 Immature Gran % 0.2 Neutrophils % 53.5 Lymphocytes % 28.6 Monocytes % 8.8 Eosinophils % 8.3 Basophils % 0.6 Nucleated RBC % 0 Absolute Neutrophils 2.50 Absolute Lymphocytes 1.34 Absolute Monocytes 0.41 Absolute Eosinophils 0.39 Absolute Basophils 0.03 Sodium Potassium Chloride Carbon Dioxide Anion Gap BUN Creatinine Estimated GFR/1.73 m2 Glucose Calcium Magnesium COVID-19 PCR Nasopharyn COVID-19 PCR SARS-CoV-2 Source SARS-CoV-2 (PCR) Patient Race Patient Ethnicity Ref Test Method Ref Test Perform Site
--- NOTE | 2020-02-22 10:17 | W.PM.DS.N ---
Date of service: 02/22/20 Time of Service: 10:18 DS: Diagnosis Discharge Diagnosis (1) Duodenitis: Status: Acute Discharge Plan Disposition Patient Disposition: HOME Condition: Improving Discharge Details Reason For Visit: DIARRHEA, ABDOMINAL PAIN Admit Date/Time: 02/20/20 18:26 Admit Provider: Jerry Goznales Attending Provider: Jerry Gonzales [facility] Course: This is a 79 year old female with history of IBS, hiatal hernia, COPD who reports one month of watery and painless diarrhea which started on Doxycycline for dental issue. She also is now reporting a history of one week of upper abdominal pain and several days of bilious vomiting. The work up in the ED was notable for absence of fever, normal white count and CT showing colonic diverticulosis and edema/thickening proximal duodenum. She was admitted to med/surg unit for further management and monitoring. She was seen by general surgery and underwent an upper endoscopy with biopsies of duodenum and gastric antrum, which are still pending. Findings include shallow duodenal ulcer and gastritis. Her diet was advanced, she will continue carafate qid and PPI BID and will follow outpatient with general surgery for further recommendations and care. Home Meds and New Rx's Prescriptions: New sucralfate 1 gram Tablet 1 g PO AC & HS Qty: 120 RF: 0 Continued aspirin [Adult Aspirin Regimen] 81 mg tablet,delayed release (DR/EC) 81 mg PO DAILY Qty: 180 RF: 3 estradiol 0.01 % (0.1 mg/gram) cream 1 gm VG .COMPLEX Qty: 42.5 RF: 4 sertraline 50 mg tablet 50 mg PO DAILY Qty: 30 RF: 11 loratadine 10 mg tablet,disintegrating 10 mg PO PRN Qty: 30 RF: 4 tramadol 50 mg tablet 50 mg PO BID PRN (Reason: pain) Qty: 30 RF: 0 zaleplon 10 mg capsule 20 mg PO HS Qty: 6 RF: 3 acetaminophen [Tylenol] 325 MG tablet 650 mg PO Q4H PRN PRNRF: 0 Changed esomeprazole magnesium [Nexium] 40 mg capsule,delayed release(DR/EC) 40 mg PO BID Qty: 90 RF: 3 Discharge Instructions Instructions: Duodenitis (DC) Additional Instructions: take all medications as prescribed. drink at least 6-8 glasses of water daily to stay well hydrated. keep diet bland and soft until instructed otherwise by surgery. Stand Alone Forms: Nursing Discharge Form Referrals: Gaurang Kendall [Primary Care Provider] - 02/27/20 4:00 pm Beryl Rich MD [ [facility] STAFF PHYSICIAN] - 03/05/20 10:30 am Activity:: Activity as Tolerated Equipment/Supplies:: No Equipment Needed Diet:: As Tolerated Discharge Orders Discharge Orders: Discharge Order (Routine); Ordered 02/22/20 Ordered By: Tasha Lyons Discharge Data Discharge Date/Time-TO BE ENTERED AT DEPARTURE: 02/22/20 16:25 DS: Summary Status at Discharge Functional status at discharge: independent ambulation Overall status at discharge: patient is progressing back to baseline Mental Status: mental status grossly normal Speech and Movement: speech and movement normal Mood: congruent mood Affect: normal affect Exam Const General: cooperative, no acute distress and frail appearing Nutritional Appearance: overweight Orientation: alert and awake Limitations: other limitations (hard of hearing) HENMT Head: normal to inspection, normocephalic and atraumatic Mouth: moist mucous membranes abnormal (slightly dry) Resp Effort & Inspection: normal respiratory effort Auscultation: clear to auscultation bilaterally Cardio Rate: regular rate Rhythm: regular rhythm GI Inspection: normal to inspection Palpation: soft, no guarding and tender in the epigastrum Auscultation: normal bowel sounds Skin General skin exam: no rashes or lesions noted Neuro General: patient alert, patient awake, patient oriented x3 and moves all extremities Extrem General: pedal edema (trace) bilaterally Psych Mental Status: mental status grossly normal Speech and Movement: speech and movement normal Mood: congruent mood Affect: normal affect DS: Data Vitals/I&O Vitals and I&O: Vital Signs Temperature 36.4 C L 02/22/20 07:37 Temperature Source Tympanic 02/22/20 07:37 Pulse 60 02/22/20 07:37 Pulse Rhythm Regular 02/21/20 23:40 Pulse 66 02/20/20 18:45 Respiratory Rate 19 02/22/20 07:37 Respiratory Effort 02/21/20 23:40 Respiratory Depth Normal 02/21/20 23:40 Respiratory Pattern Normal 02/21/20 23:40 Blood Pressure 136/75 02/22/20 07:37 Blood Pressure Mean 89 02/20/20 18:45 Blood Pressure Position Supine 02/20/20 15:39 Pulse Oximetry 96 02/22/20 07:37 Oxygen Delivery Method Room Air 02/22/20 07:37 Oxygen Flow Rate 0 02/22/20 07:37 Pain Level 0 02/22/20 07:37 Intake & Output 02/21/20 02/21/20 02/22/20 11:59 23:59 11:59 Intake Total 1974 4977.917 3002.91 / 4977.917 1141.667 / 1141.667 Output Total 1150 / 2150 1000 / 2150 450 / 450 Balance 825 / 2827.917 2002.917 / 2827.917 691.667 / 691.667 Intake: IV 1974 221. / 4187.917 991.667 / 991.667 Oral 790 / 790 150 / 150 Output: Urine 1150 / 2150 1000 / 2150 450 / 450 Other: Urine Color Dark Ivonne Pale Pale Yellow Yellow Urine Appearance Clear Clear Clear Urine Odor None None Voiding Methods Toilet Bedside Commode Data Completed and Pending Labs on day of discharge: Labs from last 24 hours 02/22/20 02/22/20 02/20/20 06:25 06:25 22:31 WBC 4.68 D RBC 3.60 L Hgb 11.6 Hct 34.0 L MCV 94.4 MCH 32.2 MCHC 34.1 RDW 13.3 Plt Count 166 MPV 10.9 Immature Gran % 0.2 Neutrophils % 53.5 Lymphocytes % 28.6 Monocytes % 8.8 Eosinophils % 8.3 Basophils % 0.6 Nucleated RBC % 0 Absolute Neutrophils 2.50 Absolute Lymphocytes 1.34 Absolute Monocytes 0.41 Absolute Eosinophils 0.39 Absolute Basophils 0.03 Sodium 140 Potassium 3.5 Chloride 105 Carbon Dioxide 28.0 Anion Gap 7.0 BUN 7 Creatinine 0.74 Estimated GFR/1.73 m2 >= 60.00 Glucose 98 Calcium 8.4 L Magnesium 1.9 COVID-19 PCR Negative Nasopharyn COVID-19 PCR Not Applicable SARS-CoV-2 Source SARS-CoV-2 (PCR) Patient Race Patient Ethnicity Ref Test Method Ref Test Perform Site [place] [facility] 02/20/20 15:55 WBC RBC Hgb Hct MCV MCH MCHC RDW Plt Count MPV Immature Gran % Neutrophils % Lymphocytes % Monocytes % Eosinophils % Basophils % Nucleated RBC % Absolute Neutrophils Absolute Lymphocytes Absolute Monocytes Absolute Eosinophils Absolute Basophils Sodium Potassium Chloride Carbon Dioxide Anion Gap BUN Creatinine Estimated GFR/1.73 m2 Glucose Calcium Magnesium COVID-19 PCR Nasopharyn COVID-19 PCR SARS-CoV-2 Source Cancelled SARS-CoV-2 (PCR) Cancelled Patient Race Cancelled Patient Ethnicity Cancelled Ref Test Method Cancelled Ref Test Perform Site [facility] Medical History Chronic pain syndrome COPD (chronic obstructive pulmonary disease) Exanthem due to varicella 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 Excised without incident. Benign pathology Irritable bowel syndrome Laryngopharyngeal reflux Mass of vulva R david labia. Obstructive sleep apnea Oral lesion Vaginal dryness, menopausal senior living use of vaginal E2. Surgical History EGD - MAC (01/18/15) DR.CHRIS ADORNO Extraction of cataract 08/22/15; LEFT EYE 09/05/15; RIGHT EYE History of appendectomy History of cataract removal with insertion of prosthetic lens (09/13/15) History of cataract surgery History of colonoscopy History of esophagogastroduodenoscopy History of total knee arthroplasty LEFT TKA 04/28/16 Family History Mother No problems noted. Social History Smoking/Tobacco Use Status: Former Tobacco Use Alcohol Intake: current Alcohol Intake frequency: 0-2 drinks per day Alcohol type: hard liquor Drug use: Never Do you feel safe at home: Yes Do you feel safe in your relationship?: Yes Female Reproductive History Menstrual Menopause type: natural (48yo) History History 0 Para Hx # Term Pregnancies Multiple births Hx # Pregnancies Ectopic pregnancies AB induced Hx Number of Living Children AB spontaneous
--- NOTE | 2020-02-22 11:13 | CHAPLAIN ---
Lesa was resting in bed when I visited. She said she was told she might go home today, but is also waiting to hear some test results. She is from [place], but said she will be staying with friends for a while as she recuperates, because she lives alone. She has been in touch with family and friends by phone.
--- NOTE | 2020-02-22 14:37 | PDOC.CMDIS ---
- If Service Date Differs Date of service: 02/22/20 Time of Service: 14:37 LACE Index Scoring Tool - Questions: Length of Stay (in days): 3 Acuity (Admit via E.D.?): Yes Comorbidities: Chronic Pulmonary Disease E.D. Visits: 2 - Answers: Total Score: 10 Risk of Readmission: High Risk Care Management Discharge Reason for Hospitalization: Diarrhea, Abdominal Pain Discharge Plan: Lesa will be going to stay with friends after this acute hospital stay. She will have friends drive her via private vehicle. She will follow up with her PCP and discharge plan of care. Patient/Family Education Needs: Review discharge instructions regarding activity levels and medications, discussion of self care needs including ask me three.
--- NOTE | 2020-02-23 16:03 | DI.VRAD_ITS ---
PROCEDURE INFORMATION: Exam: CT Abdomen And Pelvis With Contrast Exam date and time: 02/20/2020 3:53 PM Age: 79 years old Clinical indication: Bloating and nausea and vomiting TECHNIQUE: Imaging protocol: Computed tomography of the abdomen and pelvis with intravenous contrast. COMPARISON: US ABDOMEN ULTRASOUND (P) 12/25/2014 4:12 PM FINDINGS: Liver: Diffuse fatty infiltration of the liver. Gallbladder and bile ducts: Normal. No calcified stones. No ductal dilation. Pancreas: Normal. No ductal dilation. Spleen: Normal. No splenomegaly. Adrenals: Normal. No mass. Kidneys and ureters: Normal. No hydronephrosis. Stomach and bowel: Bulky diverticulosis of the sigmoid colon. Small esophageal hiatal hernia. Appendix: No evidence of appendicitis. Intraperitoneal space: No free air nor fluid collection. Vasculature: Minimal vascular calcifications. No aneurysm identified. Lymph nodes: Unremarkable. No enlarged lymph nodes. Urinary bladder: Unremarkable as visualized. Reproductive: Unremarkable as visualized. 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 No worrisome bone lesions. Soft tissues: Diffuse thickening and edema of wall proximal duodenum with surrounding soft tissue stranding. This has appearance most consistent with an inflammatory process related to duodenitis or ulcer disease. IMPRESSION: 1. Acute inflammatory changes of proximal duodenum with mucosal thickening and edema suggesting duodenitis or ulcer disease. 2. Diffuse fatty infiltration of liver. 3. Bulky sigmoid diverticulosis without evidence of diverticulitis. THIS REPORT CONTAINS FINDINGS THAT MAY BE CRITICAL TO PATIENT CARE. The findings were verbally communicated via telephone conference with TO GRIMALDO at 5:35 PM EDT on 02/20/2020. The findings were acknowledged and understood. Dictated and Authenticated by: Tricia Pradhan MD. Ordering:ZAK Chin MD
--- NOTE | 2020-02-23 16:03 | DI.VRAD_ITS ---
PROCEDURE INFORMATION: Exam: XR Chest, 1 View Exam date and time: 02/20/2020 5:12 PM Age: 79 years old Clinical indication: Other: Weakness and vomiting; Patient HX: Weakness, vomiting TECHNIQUE: Imaging protocol: XR of the chest Views: 1 view. COMPARISON: CR ABD FLAT UPRIGHT PA CHEST 12/25/2014 12:29 PM FINDINGS: Lungs: Unremarkable. No consolidation. Pleural space: Unremarkable. No pleural effusion. No pneumothorax. Heart/Mediastinum: Aortic calcifications.. No cardiomegaly. Bones/joints: Degenerate arthritis in spine has progressed since 12/25/2014. IMPRESSION: 1. No acute findings. Dictated and Authenticated by: Tricia Pradhan MD. Ordering:ZAK Chin MD
== END 2020-02-22 16:25 | disposition home or self-care (01) | DRG 392 ==
LOC: ER 19:22 → MS 19:31
PROVIDERS: Internal Medicine; Surgery; Admitting Provider General Practice; Emergency Provider Emergency Medicine; PCP Family Medicine; Visit Provider General Practice
PROC: 0DJ68ZZ Inspection of Stomach, Via Natural or Artificial Opening Endoscopic (ICD-10-PCS; CPT 43235; principal; 2020-02-21 14:15)
DX: K29.80 Duodenitis without bleeding (principal); K26.7 Chronic duodenal ulcer without hemorrhage or perforation; R19.7 Diarrhea, unspecified; G89.4 Chronic pain syndrome; J44.9 Chronic obstructive pulmonary disease, unspecified; K58.9 Irritable bowel syndrome, unspecified; G47.33 Obstructive sleep apnea (adult) (pediatric); Z11.59 Encounter for screening for other viral diseases; K29.70 Gastritis, unspecified, without bleeding
CPT/HCPCS: 43239; 36415; 80048; 80053; 83690; 85027; 87329; 88305; 93005; 96361; 96365; 96375; 99222; 99232; 99239; 99253; 99285; U0003; 71045; 74177; 81003; 81015; 83605; 83735; 84484; 85025; 93010; J0696; J2001; J2405; J3480; J3490

== ENCOUNTER 2020-02-27 18:11 | Outpatient (REF) | payer MEDICARE, SELFPAY ==
[2020-02-27 20:52] LABS: Bilirubin Negative (Negative); Blood Trace-intact (Negative); Glucose Negative (Negative); Ketones Negative (Negative); Leukocyte Esterase Negative (Negative); Nitrite Negative (Negative); Specific Gravity >= 1.030 (1.005-1.025); Urobilinogen 0.2 EU/dL (Up TO 0.2); pH 5.5 (5-8)
[2020-02-27 21:00] LABS: Clarity Clear (Clear)
[2020-02-27 21:07] LABS: Bacteria Moderate HPF (Negative); C & S Indicated? Yes; Casts Negative LPF (Negative); Crystals Few Calcium Oxalate HPF (Negative); Epithelial Cells Few HPF (Negative); Mucus Negative (Negative)
== END 2020-02-27 18:31 ==
LOC: LBN 18:11
PROVIDERS: PCP Family Medicine; Visit Provider Family Medicine
DX: R53.1 Weakness (principal); R82.998 Other abnormal findings in urine
CPT/HCPCS: 81003; 81015; 87086

== ENCOUNTER → 2020-03-05 10:34 | Outpatient (BNVA) | payer MEDICARE, SELFPAY | PROVIDERS: PCP Family Medicine; Referring Provider Family Medicine; Visit Provider Surgery | DX: K26.9 Duodenal ulcer, unspecified as acute or chronic, without hemorrhage or perforation (principal); J44.9 Chronic obstructive pulmonary disease, unspecified; Z87.891 Personal history of nicotine dependence | CPT/HCPCS: 99212; 99213 ==

== ENCOUNTER → 2020-04-09 15:39 | Outpatient (CLI) | payer MEDICARE, SELFPAY ==
--- NOTE | 2020-04-09 13:30 | DI.RAD_ITS ---
EXAM: XR HIP LT COMPLETE AP PELVIS CLINICAL HISTORY: left hip pain TECHNIQUE: COMPARISON: No exams were available for comparison FINDINGS: Two views were obtained. Cartilaginous joint spaces of the hips appear fairly well maintained. Ther e are moderate hypertrophic degenerative changes of the acetabula bilaterally and to a lesser degree the femoral heads. Mild greater trochanter osteophyte formation also noted. IMPRESSION: Mild DJD both hips. RADIATION DOSE DELIVERED: Total DLP Total DLP
--- NOTE | 2020-04-09 13:45 | DI.RAD_ITS ---
EXAM: XR LUMBAR SPINE AP, LAT CLINICAL HISTORY: left hip pain TECHNIQUE: COMPARISON: No exams were available for comparison FINDINGS: Three views were obtained. There are mild degenerative changes of both SI joints. There is disc spa ce narrowing throughout the lower thoracic and lumbar spine with multilevel vacuum disc phenomenon co nsistent with disc degeneration. There are prominent hypertrophic degenerative changes of the facet joints and vertebral endplates throughout the lumbar region. There is no evidence of acute fracture or dislocation. IMPRESSION: Severe DJD of the lumbar spine. No evidence of acute injury. RADIATION DOSE DELIVERED: Total DLP Total DLP
== END ==
PROVIDERS: PCP Family Medicine; Referring Provider Family Medicine; Visit Provider Student in an Organized Health Care Education/Training Program
DX: M16.0 Bilateral primary osteoarthritis of hip (principal); M47.816 Spondylosis without myelopathy or radiculopathy, lumbar region; M70.62 Trochanteric bursitis, left hip; J44.9 Chronic obstructive pulmonary disease, unspecified; M25.512 Pain in left shoulder
CPT/HCPCS: 99203; 99214; 72100; 73502

== ENCOUNTER 2020-04-17 02:29 | Outpatient (CLI) | payer MEDICARE, SELFPAY ==
--- NOTE | 2020-04-17 07:45 | DI.MRI_ITS ---
EXAM: MR LUMBAR SPINE WO CLINICAL HISTORY: back pain, spinal stenosis with radiculopathy,m48.061,m54.16. TECHNIQUE: Multiplanar multisequence MRI was performed. COMPARISON: No exams were available for comparison FINDINGS: MR examination lumbosacral spine was performed according to the usual protocol. No significant bony signal abnormality identified in the lumbar region. The conus medullaris appears intact. No significant findings at the T11-12 level. Mild disc bulge n oted at T12-L1. At L1-2, there is moderate facet hypertrophy and moderate disc bulge. No significant central canal s sharath stenosis or neural foraminal stenosis. No disc herniation seen. At L2-3, there is moderate facet arthropathy there is right lateral recess stenosis, no gross central canal spinal stenosis or neural foraminal stenosis. No disc herniation. At L3-4, there is a moderate disc bulge. There are severe hypertrophic degenerative changes of the f acet joints. There is narrowing of the lateral recesses of the spinal canal bilaterally. Neural for jordan appear intact. Borderline central canal spinal stenosis present. No disc herniation. At L4-5, there is a moderate disc bulge and there are severe facet hypertrophic degenerative changes. Mild bilateral neural foraminal narrowing noted. No disc herniation. No significant central canal spinal stenosis. Mild bilateral lateral recess stenosis. At L5-S1, there is marked facet hypertrophy. No disc herniation. Mild bilateral neural foraminal na rrowing noted. No significant central canal spinal stenosis. There is suboptimally visualized conto ur of the intervertebral disc, however there is a probable broad-based left lateral disc herniation. This could impinge the left S1 nerve root. IMPRESSION: Multilevel severe facet degenerative changes. Multilevel lateral recess stenosis. Suboptimally visualized broad-based left lateral disc herniation at L5-S1, left S1 nerve root impinge ment not excluded. Please correlate clinically. Please see above discussion for findings at individual lumbar levels. DATA REPOSITORY:
== END 2020-04-17 02:49 ==
PROVIDERS: PCP Family Medicine; Visit Provider Student in an Organized Health Care Education/Training Program
DX: M48.061 Spinal stenosis, lumbar region without neurogenic claudication (principal); M47.26 Other spondylosis with radiculopathy, lumbar region
CPT/HCPCS: 72148

== ENCOUNTER 2020-07-23 07:11 | Outpatient (CLI) | payer MEDICARE, SELFPAY ==
[2020-07-23 14:30] LABS: Abs Immature Grans 0.02 10^3/uL (0.0-0.06); Absolute Basophil Count 0.05 10^3/uL (0.0-0.2); Absolute Eosinophil Count 0.24 10^3/uL (0.0-0.7); Absolute Lymphocyte Count 1.64 10^3/uL (1.2-3.4); Absolute Monocyte Count 0.52 10^3/uL (0.1-0.8); Absolute Neutrophil Count 3.92 10^3/uL (1.2-6.7); Basophils % 0.8; Eosinophils % 3.8; HCT 40.3 % (36.0-46.0); HGB 13.8 g/dL (11.2-15.7); Immature Grans % 0.3; Lymphocytes % 25.7; MCH 32.4 pg (27.0-33.0); MCHC 34.2 % (32.0-36.0); MCV 94.6 fL (80-95); MPV 10.1 fL (8.0-11.0); Monocytes % 8.1; Neutrophils % 61.3; Nucleated RBC 0 %; Platelet Count 208 10^3/uL (130-400); RBC 4.26 10^6/uL (3.93-5.22); RDW-SD 48.9 fL; WBC 6.39 10^3/uL (4.4-10.8)
[2020-07-23 15:36] LABS: Vitamin D 25 Total 41.2 ng/ml (30-100)
[2020-07-23 15:37] LABS: ALT 43 U/L (14-59); AST 28 U/L (15-37); Alkaline Phosphatase 84 U/L (46-116); Anion Gap 14.5 mmol/L (3-11); BUN 18 mg/dL (7-18); Bilirubin, Total 0.5 mg/dL (0.2-1.0); CO2 22.5 mmol/L (21.0-32.0); CREATININE 0.9 mg/dL (0.55-1.02); Calcium 9.2 mg/dL (8.5-10.1); Chloride 103 mmol/L (98-107); Folate 12.8 ng/mL (8.6-20.0); Glucose 116 mg/dL (74-106); Potassium 4.3 mmol/L (3.5-5.1); Sodium 140 mmol/L (136-145); TSH (W/Ref FT4) 2.31 uIU/mL (0.36-3.74); Total Protein 7.4 g/dL (6.4-8.2); Vitamin B12 241 pg/mL (193-986)
== END 2020-07-23 07:12 | disposition home or self-care (01) ==
LOC: LBO 07:20
PROVIDERS: PCP Family Medicine; Visit Provider Nurse Practitioner Family
DX: M79.7 Fibromyalgia (principal); E55.9 Vitamin D deficiency, unspecified; R53.83 Other fatigue; R06.02 Shortness of breath
CPT/HCPCS: 36415; 80053; 82306; 82607; 82746; 84443; 85025

== ENCOUNTER → 2020-09-11 14:05 | Outpatient (BNVA) | payer MEDICARE, SELFPAY | PROVIDERS: PCP Family Medicine; Referring Provider Family Medicine; Visit Provider Surgery | DX: K21.9 Gastro-esophageal reflux disease without esophagitis (principal); R19.7 Diarrhea, unspecified; J44.9 Chronic obstructive pulmonary disease, unspecified | CPT/HCPCS: 99203; 99214 ==

== ENCOUNTER 2020-10-19 03:36 | Outpatient (CLI) | payer MEDICARE, SELFPAY ==
[2020-10-19 11:25] LABS: Source Nasal/Nares
[2020-10-19 13:29] LABS: COVID-19 PCR Negative (Negative)
== END 2020-10-19 03:37 | disposition home or self-care (01) ==
LOC: LBO 03:37
PROVIDERS: Surgery; PCP Nurse Practitioner Family; Visit Provider Surgery
DX: Z20.822 Contact with and (suspected) exposure to COVID-19 (principal); Z01.818 Encounter for other preprocedural examination
CPT/HCPCS: 87635

== ENCOUNTER 2020-10-22 08:16 | Day surgery (SDC) | payer MEDICARE, SELFPAY ==
[2020-10-22 08:15] VITALS: BP 125/87; PULSE 82; RESP 16; TEMP 36.4; O2SAT 97
[2020-10-22] MEDS: Lactated Ringers 1,000 ML 80 ML IV (08:50)
--- NOTE | 2020-10-22 09:57 | ANES.PREOP_ITS ---
General Info Date of Service Date Performed: 10/22/20 Height: 5 ft 3 in Weight: 88.8 kg Body Mass Index (BMI): 34.7 Surgical Procedure: Operation Date: 10/22/20 09:50 Proposed Procedures Side Surgeon carrie Inman DO Meds Allergies and Home Medications Allergies Allergy/AdvReac Type Severity Reaction Status Date / Time No Known Allergies Allergy Verified 10/22/20 08:35 Home Medication Medication Instructions Recorded acetaminophen [Tylenol] 650 mg PO Q4H PRN PRN tab 04/01/16 loratadine 10 mg disintegrating 10 mg PO PRN #30 tab-cap 01/24/20 tablet estradiol 1 gm VG .COMPLEX PRN gm 02/27/20 esomeprazole magnesium 40 mg 40 mg PO DAILY tab-cap 03/19/20 capsule,delayed release triamcinolone acetonide 0.1 % 1 applic TOPICAL TID PRN #80 g 03/19/20 topical cream estradiol See Rx Instructions VAGINAL DAILY 05/01/20 #42.5 g sertraline 50 mg tablet 75 mg PO DAILY #45 tab 05/30/20 zaleplon 10 mg capsule 20 mg PO HS #60 cap 06/13/20 tramadol 50 mg tablet 50 mg PO BID PRN #30 tab-cap 06/25/20 sucralfate 1 gram tablet 1 g PO AC & HS #120 tab 06/29/20 betamethasone dipropionate 0.05 % 1 applic TOPICAL QD-BID PRN #45 g 09/03/20 topical ointment mupirocin 2 % topical ointment 1 applic TOPICAL DAILY #22 g 09/03/20 bisacodyl 5 mg tablet,delayed 5 mg PO ONCE #4 tab 09/11/20 release polyethylene glycol 3350 17 gram 255 g PO DAILY #15 ea 09/11/20 oral powder packet Current Visit Medications: Current Medications Generic Name Dose Route Start Last Admin Trade Name Freq PRN Reason Stop Dose Admin Ringer's Solution 1,000 mls @ 80 mls/hr 10/22/20 06:00 10/22/20 08:50 IV 11/18/20 23:59 80 mls/hr INFUSION DAVID Administration IV Miscellaneous Supplies 1 each 10/22/20 06:00 Iv Access IV 11/18/20 23:59 DIRECTED DAVID Sodium Chloride 0 ml 10/22/20 06:00 Normal Saline Flush 10 Ml Syr IV 11/18/20 23:59 PRN PRN Sodium Chloride 0 ml 10/22/20 06:00 Normal Saline 10 Ml Vial IJ 11/18/20 23:59 DIRECTED PRN Sterile Water 0 ml 10/22/20 06:00 Water,Injection,Sterile 10 Ml Vial IJ 11/18/20 23:59 DIRECTED PRN PFSH Active Problems Active Problems: Problem Status Onset Code GERD (gastroesophageal reflux disease) K21.9 Sleep apnea G47.30 Lichen sclerosus et atrophicus of the vulva N90.4 Pruritus L29.9 Xerosis of skin L85.3 Degenerative joint disease (DJD) of lumbar spine M47.816 Trochanteric bursitis, left hip M70.62 Duodenal ulcer K26.9 Gastritis K29.70 Discharge planning issues Z02.9 DVT prophylaxis Z29.9 Diarrhea R19.7 Acute UTI N39.0 Duodenitis K29.80 Person under investigation for COVID-19 Z20.828 Exertional dyspnea R06.00 Chest tightness R07.89 Depression F32.9 Dyspnea R06.00 Abnormal myocardial perfusion study R94.39 Vaginal dryness, menopausal N95.1 Chronic pain syndrome 01/23/17 G89.4 Antral gastritis K29.50 Arthritis M19.90 Bronchitis J40 COPD (chronic obstructive pulmonary disease) J44.9 Diverticulosis of colon K57.30 Fibromyalgia M79.7 Hernia, hiatal K44.9 Herpes, 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 Excised without incident. Benign pathology Irritable bowel syndrome Laryngopharyngeal reflux Lichen sclerosus et atrophicus of the vulva No loss of labial architecture. superficial bilateral fissures on labia majora margins. Mass of vulva R david labia. Obstructive sleep apnea Oral lesion Trochanteric bursitis, left hip Vaginal dryness, menopausal half-way use of vaginal E2. Surgical History Surgical History EGD - MAC (02/21/20) DR.CHRIS ADORNO-01/2015 Dr. Rich- 02/2020- duodenal ulcer Extraction of cataract 08/22/15; LEFT EYE 09/05/15; RIGHT EYE History of appendectomy History of cataract removal with insertion of prosthetic lens (09/13/15) History of cataract surgery History of colonoscopy 2011- Murali Adorno- normal History of esophagogastroduodenoscopy History of total knee arthroplasty LEFT TKA 04/28/16 Tobacco Smoking/Tobacco Use Status: Former Tobacco Use Alcohol Alcohol Intake: current Alcohol intake frequency: 0-2 drinks per day Alcohol type: hard liquor Substance Use Substance use: Never Prental History History 0 Para Hx # Term Pregnancies Multiple births Hx # Pregnancies Ectopic pregnancies AB induced Hx Number of Living Children AB spontaneous Vital Signs and Lab Results Vital Signs Most Recent Vital Signs in EMR: Most Recent Vital Signs Temp Pulse Resp BP Pulse Ox 36.4 C L 82 16 125/87 97 10/22/20 08:15 10/22/20 08:15 10/22/20 08:15 10/22/20 08:15 10/22/20 08:15 Lab Results Blood Type / Crossmatch: No Data to Display Complete Blood Count: No Data to Display Complete Metabolic Panel: No Data to Display Liver Function Panel: No Data to Display Coagulation Panel: No Data to Display Cardiac Panel: No Data to Display Arterial Blood Gas: No Data to Display Venous Blood Gas: No Data to Display Pancreas Panel: No Data to Display Thyroid Panel: No Data to Display Infectious Disease: Coronavirus (COVID-19)(PCR) Negative (Negative) 10/19/20 10:36 10/19/20 Coronavirus 2019 Source Nasal/nares 10/19/20 10:36 10/19/20 Blood Cultures: No Data to Display Toxicology Panel: No Data to Display Anesthesia Assessment and Plan Anesthesia History Personal History: No History of Anesthesia Complications Family History: No Family History of Anesthesia Complications Exercise Tolerance Exercise Tolerance: Metabolic Equivalents>4 Pertinent Negatives Pertinent Negatives: No Major Cardiovascular Symptoms or Complaints, No Major Pulmonary Symptoms or Complaints and No History of CVA/TIA Cardiac & Pulmonary Exam Cardiac Exam: Normal S1/S2 Heart Sounds Pulmonary Exam: Clear Bilateral Breath Sounds Airway Exam Known Difficult Airway: No Mallampati Class: 1 Mouth Opening: Normal (> 3cm) Thyromental Distance: Greater than 3 cm Neck Range of Motion: Full ROM Neck Circumference: Normal Teeth Condition: Normal Dentition ASA Classification ASA Score: ASA 2 Emergency Case?: No NPO Status NPO Status: NPO Clears >2 hours, Solids >8 hours Anesthesia Plan Resuscitation Status: Full Code Anesthesia Technique: General Anesthesia Airway Planned: Natural Airway Monitors Used: Standard Monitors
[2020-10-22 09:59] VITALS: BMI 34.7
--- NOTE | 2020-10-22 09:59 | W.PM.HP.N ---
Date of service: 10/22/20 Time of Service: 09:59 Assessment and Plan Assessment and plan (1) GERD (gastroesophageal reflux disease): Status: Chronic Assessment and plan: 2 OR for EGD with possible biopsies Qualifiers: Esophagitis presence: esophagitis presence not specified Qualified Code(s): K21.9 - Gastro-esophageal reflux disease without esophagitis (2) Diarrhea: Status: Acute Assessment and plan: 2 OR for colonoscopy with possible biopsies. Risk and benefits of the procedures, including but not limited to, bleeding, infection, perforation possibly requiring surgery, were explained the patient. She is understanding the risks and wishes to proceed. Qualifiers: Diarrhea type: unspecified type Qualified Code(s): R19.7 - Diarrhea, unspecified History of Present Illness History of Present Illness Chief Complaint: GERD, history of duodenal ulcer in February 2020, diarrhea Narrative: Very pleasant 79-year-old female comes in with longstanding GERD. She had an EGD in February 2020 which showed shallow duodenal ulcer. She has been taking Nexium since. She also has had a couple of months of diarrhea. Her last colonoscopy was in 2011. She has no history of polyps. [facility] Medical History Chronic pain syndrome COPD (chronic obstructive pulmonary disease) Degenerative joint disease (DJD) of lumbar spine Exanthem due to varicella 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 Excised without incident. Benign pathology Irritable bowel syndrome Laryngopharyngeal reflux Lichen sclerosus et atrophicus of the vulva No loss of labial architecture. superficial bilateral fissures on labia majora margins. Mass of vulva R david labia. Obstructive sleep apnea Oral lesion Trochanteric bursitis, left hip Vaginal dryness, menopausal longterm use of vaginal E2. Surgical History EGD - MAC (02/21/20) DR.CHRIS ADORNO-01/2015 Dr. Rich- 02/2020- duodenal ulcer Extraction of cataract 08/22/15; LEFT EYE 09/05/15; RIGHT EYE History of appendectomy History of cataract removal with insertion of prosthetic lens (09/13/15) History of cataract surgery History of colonoscopy 2011- Murali Adorno- normal History of esophagogastroduodenoscopy History of total knee arthroplasty LEFT TKA 04/28/16 Family History Mother No problems noted. Social History Smoking/Tobacco Use Status: Former Tobacco Use Quit Date: 05/11/90 Smoking risk assessment performed?: Yes Alcohol Intake: current Alcohol Intake frequency: 0-2 drinks per day Alcohol type: hard liquor Drug use: Never Current gender identity: female Do you feel safe at home: Yes Do you feel safe in your relationship?: Yes Female Reproductive History Menstrual Menopause type: natural (48yo) History History 0 Para Hx # Term Pregnancies Multiple births Hx # Pregnancies Ectopic pregnancies AB induced Hx Number of Living Children AB spontaneous Meds Allergies and Home Medications Allergies Allergy/AdvReac Type Severity Reaction Status Date / Time No Known Allergies Allergy Verified 10/22/20 08:35 Home Medications Medication Instructions Recorded Confirmed Type acetaminophen [Tylenol] 650 mg PO Q4H PRN PRN tab 04/01/16 10/19/20 Rx loratadine 10 mg disintegrating 10 mg PO PRN #30 tab-cap 01/24/20 10/19/20 Rx tablet estradiol 1 gm VG .COMPLEX PRN gm 02/27/20 10/19/20 History esomeprazole magnesium 40 mg 40 mg PO DAILY tab-cap 03/19/20 10/22/20 History capsule,delayed release triamcinolone acetonide 0.1 % 1 applic TOPICAL TID PRN #80 g 03/19/20 10/19/20 Rx topical cream estradiol See Rx Instructions VAGINAL DAILY 05/01/20 10/19/20 Rx #42.5 g sertraline 50 mg tablet 75 mg PO DAILY #45 tab 05/30/20 10/22/20 Rx zaleplon 10 mg capsule 20 mg PO HS #60 cap 06/13/20 10/22/20 Rx tramadol 50 mg tablet 50 mg PO BID PRN #30 tab-cap 06/25/20 10/22/20 Rx sucralfate 1 gram tablet 1 g PO AC & HS #120 tab 06/29/20 10/19/20 Rx betamethasone dipropionate 0.05 % 1 applic TOPICAL QD-BID PRN #45 g 09/03/20 10/19/20 Rx topical ointment mupirocin 2 % topical ointment 1 applic TOPICAL DAILY #22 g 09/03/20 10/19/20 Rx bisacodyl 5 mg tablet,delayed 5 mg PO ONCE #4 tab 09/11/20 10/22/20 Rx release polyethylene glycol 3350 17 gram 255 g PO DAILY #15 ea 09/11/20 10/22/20 Rx oral powder packet Exam Const General: cooperative, healthy appearing and comfortable Resp Effort & Inspection: normal respiratory effort, able to speak in complete sentences, not labored and no use of accessory muscles Cardio Jugular venous pressure: no JVD Rate: regular rate Rhythm: regular rhythm Results Last Vital Signs Temp 97.5 F L 10/22/20 08:15 Pulse 82 10/22/20 08:15 Resp 16 10/22/20 08:15 BP 125/87 10/22/20 08:15 Pulse Ox 97 10/22/20 08:15 COVID-19 Screening Have you, or household traveled for leisure in last 14 days?: No Had IN PERSON contact w/suspected or confirmed C-19 person: No
--- NOTE | 2020-10-22 11:10 | BOWEL_PTH ---
PATIENT: Lesa Metz LOC: [facility] U#:[id number] AGE/SX: 79/F ROOM: RE10/22/[address]: Griffin Inman : 1940 BED: DIS: 10/22/2020 SPEC #: [id number] RECD: 10/22/20 12:31 STATUS: ELGIN RE #: [id number] ESME: 10/22/20 11:[address]: Griffin Inman DEPT: Surgical Specimen RECD BY: Sandra Motley ENTERED: 10/22/20 12:32 SP TYPE: Bowel OTHR DR: West Jackson, ALL PURPOSE CLERK Tissues: 1 - BIOPSY BOWEL 2 - BIOPSY BOWEL Procedures: GROSS AND MICRO LEVEL 4 Comments: [id number]
--- NOTE | 2020-10-22 11:27 | W.PM.ENDDOP ---
Date of service: 10/22/20 Time of Service: 11:27 Endoscopy Report DATE OF PROCEDURE: 10/22/20 PRE-OP DIAGNOSIS: GERD, history of duodenal ulcer, diarrhea, need for screening colonoscopy POST-OP DIAGNOSIS: other (Small hiatal hernia, severe pandiverticulosis, terminal ileitis versus possible mass at the ileocecal valve) PROCEDURE: EGD Colonoscopy with cold forceps biopsies SURGEON: Griffin Inman ANESTHESIA TYPE: General:No Airway ESTIMATED BLOOD LOSS: 2 PATHOLOGY: other (A. Ileocecal inflammation vs possible mass. B. terminal ileum) COMPLICATIONS: None DISPOSITION: same day INDICATIONS: This is a very pleasant 71-year-old female comes in with a greater than 2-month history of diarrhea. She is also been treated for GERD with Nexium. She is found to have a shallow duodenal ulcer in February 2020. She comes for repeat EGD and colonoscopy. Risks and benefits of the procedures, including allergy, bleeding, infection, perforation possibly requiring surgery, were explained the patient. She was understanding the risks and wished to proceed. PREP: Miralax/Dulcolax COLONOSCOPY RETRACTION TIME: 25 FINDINGS: Small hiatal hernia Severe pandiverticulosis Terminal ileitis versus possible ileocecal mass PROCEDURE DESCRIPTION: Patient was Operative room placed in hospital bed in the left lateral decubitus position. Timeout was performed. All present were in agreement. The scope was then passed in the patient's mouth and easily down to the esophagus. I advanced the scope all the way to the third portion of the duodenum. Also the duodenum were examined and no residual ulceration was identified. I slowly withdrew the scope. There was no antral gastritis. Retroflexion view in the stomach did show a small hiatal hernia. No other pathology was identified. The GE junction was well demarcated. I then slowly withdrew the scope through the esophagus and identified no further pathology. Attention was then brought to colonoscopy. A digital rectal exam was performed and was within normal limits. I did not place a scope into the anus and advanced to the way to the ileocecal valve. This was done with quite a bit of difficulty. We had to have multiple people use pressure and rolled the patient onto her back in order to successfully advance the scope all the way to the ileocecal valve. There was severe pandiverticulosis. Ileocecal valve was enlarged and inflamed appearing. I cannot rule out a mass in this area. Several biopsies were taken of the ileocecal valve and placed into Jar A. I then cannulated the ileocecal valve and biopsy of the terminal ileum was taken and sent to pathology in jar B. I then slowly withdrew the scope looking at all of her colon. No further pathology was identified other than again, severe pandiverticulosis. Retroflexion view in the rectum did not reveal any significant hemorrhoids. Patient tolerated procedures well.
[2020-10-22 11:35] VITALS: BP 115/72; PULSE 67; RESP 16; TEMP 36.4; O2SAT 93
--- NOTE | 2020-10-22 11:36 | W.PM.DSUDISC ---
Discharge Plan Discharge Details Attending Provider: Griffin Inman Primary Care Provider: West Jackson Home Meds and New Rx's Prescriptions: No Action esomeprazole magnesium [Nexium] 40 mg capsule,delayed release(DR/EC) 40 mg PO DAILY RF: 0 triamcinolone acetonide 0.1 % cream 1 applic topical TID PRN Qty: 80 RF: 2 mupirocin 2 % ointment 1 applic topical DAILY Qty: 22 RF: 0 betamethasone dipropionate 0.05 % ointment 1 applic topical QD-BID PRN (Reason: dermatitis) Qty: 45 RF: 1 estradiol 0.01 % (0.1 mg/gram) cream 1 gm VG .COMPLEX PRNRF: 0 sertraline 50 mg tablet 75 mg PO DAILY Qty: 45 RF: 0 bisacodyl [Dulcolax (bisacodyl)] 5 mg tablet,delayed release (DR/EC) 5 mg PO ONCE Qty: 4 RF: 0 polyethylene glycol 3350 17 gram powder in packet 255 g PO DAILY Qty: 15 RF: 0 loratadine 10 mg tablet,disintegrating 10 mg PO PRN Qty: 30 RF: 4 estradiol 0.01 % (0.1 mg/gram) cream See Rx Instructions vaginal DAILY Qty: 42.5 RF: 0 zaleplon 10 mg capsule 20 mg PO HS Qty: 60 RF: 0 tramadol 50 mg tablet 50 mg PO BID PRN (Reason: pain) Qty: 30 RF: 0 sucralfate 1 gram tablet 1 g PO AC & HS Qty: 120 RF: 0 acetaminophen [Tylenol] 325 MG tablet 650 mg PO Q4H PRN PRNRF: 0 Discharge Instructions Additional Instructions: Make sure to follow-up with results of your biopsies Activity:: Activity as Tolerated Diet:: As Tolerated Discharge Data Discharge Date/Time-TO BE ENTERED AT DEPARTURE: 10/22/20 11:38 DS: Diagnosis Discharge Diagnosis (1) GERD (gastroesophageal reflux disease): Status: Chronic (2) Diarrhea: Status: Acute
--- NOTE | 2020-10-22 11:40 | W.ANESPOSTOP ---
Postoperative Evaluation Date, Time and Location Date Performed: 10/22/20 Time Performed: 11:41 Patient Location: Day Surgery Unit Vital Signs Most Recent Imported Vital Signs: Most Recent Vital Signs Temp Pulse Resp BP Pulse Ox 36.4 C L 82 16 125/87 97 10/22/20 08:15 10/22/20 08:15 10/22/20 08:15 10/22/20 08:15 10/22/20 08:15 Most Recent Manually Entered Vital Signs: Adult Blood Pressure: 115/72 Heart Rate: 69 Respirations: 12 Oxygen Saturation (%): 94 Temperature (C): 36.4 C Pain Score (0-10 Scale): 0 Assessment Mental Status: Awake (Alert & Oriented to Patient Baseline) Airway and Respiratory Function: Patent airway with normal (patient baseline) respiratory exam Cardiovascular Function: Hemodynamically Stable Hydration Status: Adequately Hydrated Nausea & Vomiting: No Nausea or Vomiting Pain: Pt. Denies Any Pain Peripheral Nerve Block: Patient did not receive a nerve block
[2020-10-22 11:42] VITALS: BP 115/72; PULSE 69; RESP 12; TEMPC 36.4; O2SAT 94
[2020-10-22 11:58] VITALS: BP 119/69; PULSE 60; RESP 16; TEMP 36.4; O2SAT 98
[2020-10-22 12:10] VITALS: BP 120/70; PULSE 66; RESP 18; TEMP 36; O2SAT 97
== END 2020-10-22 12:50 | disposition home or self-care (01) ==
PROVIDERS: PCP Nurse Practitioner Family; Visit Provider Surgery
PROC: (CPT 45380; principal; 2020-10-22 09:45)
DX: K21.9 Gastro-esophageal reflux disease without esophagitis (principal); R19.7 Diarrhea, unspecified; Z87.11 Personal history of peptic ulcer disease; K44.9 Diaphragmatic hernia without obstruction or gangrene; D12.0 Benign neoplasm of cecum; K57.30 Diverticulosis of large intestine without perforation or abscess without bleeding; J44.9 Chronic obstructive pulmonary disease, unspecified; G47.33 Obstructive sleep apnea (adult) (pediatric); Z87.891 Personal history of nicotine dependence
CPT/HCPCS: 45380; 43235; 88305; J2001

== ENCOUNTER → 2020-11-01 11:31 | Outpatient (BNVA) | payer MEDICARE, SELFPAY | PROVIDERS: PCP Nurse Practitioner Family; Referring Provider Nurse Practitioner Family; Visit Provider Surgery | DX: K21.9 Gastro-esophageal reflux disease without esophagitis (principal); R19.7 Diarrhea, unspecified | CPT/HCPCS: 99212; 99213 ==

== ENCOUNTER 2020-11-01 18:19 | Outpatient (REF) | payer MEDICARE, SELFPAY ==
[2020-11-05 14:25] LABS: IgA 162 mg/dL (85-499); Interpretation (See Note); Tissue Transglutaminase IgA <1.2 U/mL (<4.0)
== END 2020-11-01 18:20 | disposition home or self-care (01) ==
LOC: LBN 18:19
PROVIDERS: PCP Nurse Practitioner Family; Visit Provider Surgery
DX: R19.7 Diarrhea, unspecified (principal)
CPT/HCPCS: 82784; 83516

== ENCOUNTER 2020-11-05 18:48 | Outpatient (REF) | payer MEDICARE, SELFPAY ==
[2020-11-07 13:47] LABS: Campylobacter PCR Negative (Negative); Salmonella PCR Negative (Negative); Shigella/Enteroinvasive Ecoli Negative (Negative)
[2020-11-07 15:04] LABS: Shiga Toxin PCR Positive (Negative)
[2020-11-08 15:05] LABS: Helicobacter pylori Ag, Feces Negative (Negative)
== END 2020-11-05 18:49 | disposition home or self-care (01) ==
LOC: LBN 18:48
PROVIDERS: PCP Nurse Practitioner Family; Visit Provider Surgery
DX: R19.7 Diarrhea, unspecified (principal)
CPT/HCPCS: 87338; 87505; 87177

== ENCOUNTER → 2020-11-09 11:56 | Outpatient (BNVA) | payer MEDICARE, SELFPAY | PROVIDERS: PCP Nurse Practitioner Family; Referring Provider Nurse Practitioner Family; Visit Provider Surgery ==

== ENCOUNTER 2020-12-10 17:57 | Outpatient (REF) | payer MEDICARE, SELFPAY ==
[2020-12-10 20:41] LABS: Abs Immature Grans 0.02 10^3/uL (0.0-0.06); Absolute Basophil Count 0.04 10^3/uL (0.0-0.2); Absolute Eosinophil Count 0.32 10^3/uL (0.0-0.7); Absolute Lymphocyte Count 1.71 10^3/uL (1.2-3.4); Absolute Monocyte Count 0.45 10^3/uL (0.1-0.8); Absolute Neutrophil Count 3.35 10^3/uL (1.2-6.7); Basophils % 0.7; Eosinophils % 5.4; HCT 38.9 % (36.0-46.0); HGB 13.3 g/dL (11.2-15.7); Immature Grans % 0.3; MCH 31.8 pg (27.0-33.0); MCHC 34.2 % (32.0-36.0); MCV 93.1 fL (80-95); MPV 11.5 fL (8.0-11.0); Monocytes % 7.6; Nucleated RBC 0 %; Platelet Count 219 10^3/uL (130-400); RBC 4.18 10^6/uL (3.93-5.22); RDW 13.9 % (11.7-14.6); RDW-SD 47.9 fL; WBC 5.89 10^3/uL (4.4-10.8)
[2020-12-10 21:42] LABS: ALT 35 U/L (14-59); AST 37 U/L (15-37); Albumin 3.8 g/dL (3.4-5.0); Alkaline Phosphatase 83 U/L (46-116); Anion Gap 11.9 mmol/L (3-11); BUN 18 mg/dL (7-18); Bilirubin, Total 0.3 mg/dL (0.2-1.0); CO2 24.1 mmol/L (21.0-32.0); CREATININE 0.8 mg/dL (0.55-1.02); Chloride 105 mmol/L (98-107); Glucose 110 mg/dL (74-106); Magnesium 1.7 mg/dL (1.8-2.4); Potassium 4.4 mmol/L (3.5-5.1); Sodium 141 mmol/L (136-145)
== END 2020-12-10 17:58 | disposition home or self-care (01) ==
LOC: NCHCN 17:57
PROVIDERS: PCP Nurse Practitioner Family; Visit Provider Physician Assistant
DX: R19.7 Diarrhea, unspecified (principal)
CPT/HCPCS: 80053; 83735; 85025

== ENCOUNTER 2021-06-21 16:34 | Outpatient (REF) | payer MEDICARE, SELFPAY ==
[2021-06-23 11:29] LABS: COVID-19 RT-PCR UVMMC Result Negative (Negative)
== END 2021-06-21 16:35 | disposition home or self-care (01) ==
LOC: LBN 16:34
PROVIDERS: PCP Nurse Practitioner Family; Visit Provider Physician Assistant
DX: Z20.822 Contact with and (suspected) exposure to COVID-19 (principal)
CPT/HCPCS: U0003; U0005

== ENCOUNTER 2021-06-21 16:38 | Outpatient (CLI) | payer MEDICARE, SELFPAY ==
--- NOTE | 2021-06-21 16:30 | RT.EKG_ITS ---
APPROVED REPORT Exam: Resting ECG Reason for Exam: Chest discomfort Patient Location: O HR:75 bpm ECG Measurements Heart Rate 75 AXIS MO 186 P -5 QRSd 95 QRS -29 QT 400 T 23 QTc 446 Conclusion Sinus rhythm...normal P axis, V-rate 60- 99 Ventricular trigeminy...trigeminy string>6 w/ V complexes
== END 2021-06-21 16:39 | disposition home or self-care (01) ==
LOC: DI.CM 16:38
PROVIDERS: PCP Nurse Practitioner Family; Visit Provider Physician Assistant
DX: R07.89 Other chest pain (principal)
CPT/HCPCS: 93010

== ENCOUNTER 2021-06-21 19:31 | Outpatient (CLI) | payer MEDICARE, SELFPAY ==
--- NOTE | 2021-06-21 16:45 | DI.RAD_ITS ---
Exam(s) XR CHEST 2V PA LATERAL EXAM: XR CHEST 2V PA LATERAL CLINICAL HISTORY: cough, rales left r/o pneumonia R05.9 COUGH TECHNIQUE: 2D digital imaging was performed of the chest. Two images were obtained. PA and lateral views were obtained. COMPARISON: CR,XR XR PORTABLE CHEST AP from 02/20/2020 FINDINGS: MEDIASTINUM: Normal. HEART: Normal. PULMONARY VASCULATURE: Normal. LUNGS: Interstitial findings bilaterally in the lungs. They have a similar appearance to the examina tion from 02/20/2020 suggesting chronic fibrosis. No new infiltrates are seen. PLEURAL SPACE: No pleural effusion or pneumothorax. BONE:Within normal limits for the patient's age. There is again seen a right convex thoracic scolios is. OTHER FINDINGS:Normal. IMPRESSION: Stable chronic interstitial findings suggesting fibrosis. No definite superimposed infiltrate. Foll ow-up as clinically appropriate. DATA REPOSITORY: RADIATION DOSE DELIVERED:
--- NOTE | 2021-06-21 19:04 | DI.VRAD_ITS ---
PROCEDURE INFORMATION: Exam: XR Chest Exam date and time: 06/21/2021 4:46 PM Age: 80 years old Clinical indication: Patient HX: Cough, rales left; Additional info: R/O pneumonia TECHNIQUE: Imaging protocol: XR of the chest. Views: 2 views. COMPARISON: XR PORTABLE CHEST AP 02/20/2020 5:03 PM FINDINGS: Lungs: Interstitial prominence noted throughout both lungs. No specific consolidation or collapse. Pulmonary vessels are not congested. Pleural spaces: Unremarkable. No pleural effusion. No pneumothorax. Heart/Mediastinum: Unremarkable. No cardiomegaly. Bones/joints: Thoracic dextroscoliosis noted. Degenerative changes noted throughout the spine. Arthropathy noted in both shoulders. IMPRESSION: Interstitial infiltrates and/or edema. Dictated and Authenticated by: Juan Dai MD. Ordering:GAYLE Maguire MD
== END 2021-06-21 19:51 ==
PROVIDERS: PCP Nurse Practitioner Family; Visit Provider Physician Assistant
DX: R05.8 Other specified cough (principal); J84.89 Other specified interstitial pulmonary diseases
CPT/HCPCS: 71046

== ENCOUNTER 2021-09-27 18:15 | Emergency (ER) | payer MEDICARE, SELFPAY ==
--- NOTE | 2021-09-27 18:15 | DI.CT_ITS ---
Exam(s) CT HEAD WO EXAM: CT HEAD WO CLINICAL HISTORY: fall. TECHNIQUE: Imaging Protocol: Axial computed tomography images with coronal and sagittal reformatted images were created and reviewed COMPARISON: No exams were available for comparison FINDINGS: Ventricles and Extra axial spaces: Normal in size and morphology for the patient's age. Hemorrhage: There are areas of decreased attenuation in the white matter most consistent with small v essel ischemic disease. No acute territorial infarct is seen. Cerebral parenchyma: Normal. Midline shift: None. Brainstem/Cerebellum: Normal. Calvarium: Normal. Visualized Paranasal sinuses/Mastoids: Clear. Soft Tissues: Unremarkable. IMPRESSION: No acute intracranial process. RADIATION DOSE DELIVERED: 697.68mGy.cm Total DLP DATA REPOSITORY: All CT scans at this facility are submitted to the National Radiology Data Registry (NRDR) Dose Index Registry (DIR) with the [employer] ([employer]). RADIATION OPTIMIZATION: All CT scans at this facility use at least one of these dose optimization te chniques: automated exposure control; mA and/or kV adjustment per patient size (includes targeted exa ms where dose is matched to clinical indication); or iterative reconstruction.
--- NOTE | 2021-09-27 19:03 | DI.VRAD_ITS ---
PROCEDURE INFORMATION: Exam: CT Head Without Contrast Exam date and time: 09/27/2021 18:50 Age: 80 years old Clinical indication: Injury or trauma; Fall; Concussion/head injury; Consciousness not specified; Injury date: 09/27/21 TECHNIQUE: Imaging protocol: Computed tomography of the head without contrast. Radiation optimization: All CT scans at this facility use at least one of these dose optimization techniques: automated exposure control; mA and/or kV adjustment per patient size (includes targeted exams where dose is matched to clinical indication); or iterative reconstruction. COMPARISON: MRI - BRAIN WO CONTRAST 03/19/2016 15:28 FINDINGS: Brain: Atrophy and chronic appearing white matter changes. No edema or hemorrhage. Cerebral ventricles: Ex vacuo dilation of the ventricular system. Paranasal sinuses: No acute sinusitis. Mastoid air cells: No mastoid effusion. Bones/joints: No acute fracture. Soft tissues: No suspicious lesions. IMPRESSION: No acute intracranial findings. Dictated and Authenticated by: Avril Vaughan MD. Ordering:JORDY Steel MD
--- NOTE | 2021-09-27 19:22 | ED.GENADUL_ITS ---
Discharge Plan Disposition Patient Disposition: HOME Condition: Stable Discharge Details Clinical Impression: Acute head trauma, Fall, Concussion Primary Care Provider: [place] ED Provider: Fred Deluna Home Meds and New Rx's Prescriptions: No Action esomeprazole magnesium [Nexium] 40 mg capsule,delayed release(DR/EC) 40 mg PO DAILY sertraline 25 mg tablet 100 mg PO BID nystatin-triamcinolone 100,000-0.1 unit/g-% cream 1 applic topical BID Qty: 30 1RF triamcinolone acetonide 0.5 % cream 1 applic topical BID Qty: 15 1RF estradiol 0.01 % (0.1 mg/gram) cream 1 gm VG .COMPLEX PRN Rx Instructions: 1 g vaginal 2-3x per week PRN; methylphenidate HCl [Ritalin] 10 mg tablet 10 mg PO DAILY ipratropium-albuterol 0.5 mg-3 mg(2.5 mg base)/3 mL solution for nebulization 3 ml inhalation Q6H PRN (Reason: wheezing) Qty: 180 0RF zolpidem [Ambien] 10 mg tablet 10 mg PO QHS Qty: 30 0RF loratadine 10 mg tablet,disintegrating 10 mg PO PRN Qty: 30 4RF tramadol 50 mg tablet 50 mg PO BID PRN (Reason: pain) Qty: 30 0RF estradiol 0.01 % (0.1 mg/gram) cream See Rx Instructions vaginal DAILY Qty: 42.5 3RF Rx Instructions: Insert 1-2G in the vagina at night for 14 nights then use half the initial dose 3 x week. acetaminophen [Tylenol] 325 MG tablet 650 mg PO Q4H PRN PRN0RF Discharge Instructions Instructions: Concussion (ED), Fall Prevention for Older Adults (ED) Additional Instructions: Medication reconciliation could not be performed today. Please take your medication as prescribed by your doctor. Please contact your primary care physician to arrange follow-up. Return to the ER immediately for any worsening or new concerning symptoms. Referrals: [facility] [place], THEORETICAL PHYSICS TEACHER [Primary Care Provider] - Discharge Data Discharge Date/Time-TO BE ENTERED AT DEPARTURE: 09/27/21 19:55 Medical Decision Making <Fred Deluna MD - Last Filed: 09/30/21 16:38> 80-year-old female fell 5 days ago and struck her head presents with u nsteadiness and fatigue this week. Neuro intact. CT of the head was interpreted by radiology: IMPRESSION: No acute intracranial findings. Suspect concussion. Results were discussed with patient. Usual and customary discharge instructions were reviewed. <RIAZ Hanks - Last Filed: 10/11/21 12:52> 80-year-old female fell 5 days ago and struck her head presents with unsteadiness and fatigue this week. Neuro intact. CT of the head was interpreted by radiology: IMPRESSION: No acute intracranial findings. Suspect concussion. Results were discussed with patient. Usual and customary discharge instructions were reviewed. Danyel: My name was entered to this chart in error, I did not evaluate this patient. HPI <Fred Deluna MD - Last Filed: 09/30/21 16:38> General Mode of arrival: ambulatory . Date/Time Provider Initiated Documentation: 09/27/21 18:19 . Limitations to Documentation: no limitations . Information obtained by: patient . HPI Narrative: 80-year-old female presents with chief complaint of dizziness. Patient notes that she slipped on stairs and fell and struck her head approximately 5 days ago. She did not blackout. She notes she has been feeling generally unwell since the fall and states she has had some unsteadiness as well as fatigue Symptoms are mild. Her friends encouraged her to seek treatment. [facility] and they referred her to the ED for further diagnostic work- up. Patient denies associated nausea or vomiting. No other injury. No neck pain. No numbness or tingling. Related Data Home Medications Medication Instructions Recorded Confirmed acetaminophen 325 mg tablet 650 mg PO Q4H PRN PRN 04/01/16 10/10/21 (Tylenol) loratadine 10 mg disintegrating 10 mg PO PRN allergy symptoms #30 01/24/20 10/10/21 tablet tab-caps estradiol 0.01% (0.1 mg/gram) 1 gm vaginal .COMPLEX PRN 02/27/20 10/10/21 vaginal cream esomeprazole magnesium 40 mg 40 mg PO DAILY 03/19/20 10/10/21 capsule,delayed release (Nexium) tramadol 50 mg tablet 50 mg PO BID PRN pain #30 tab-caps 06/25/20 10/10/21 nystatin-triamcinolone 100,000 1 applic topical BID #30 grams 11/23/20 10/10/21 unit/g-0.1 % topical cream ipratropium 0.5 mg-albuterol 3 mg 3 ml inhalation Q6H PRN wheezing 06/21/21 10/10/21 (2.5 mg base)/3 mL nebulization #180 mL soln methylphenidate HCl 10 mg tablet 10 mg PO DAILY 06/21/21 10/10/21 (Ritalin) zolpidem 10 mg tablet (Ambien) 10 mg PO QHS #30 tabs 07/29/21 10/10/21 triamcinolone acetonide 0.5 % 1 applic topical BID #15 grams 09/09/21 10/10/21 topical cream sertraline 25 mg tablet 100 mg PO BID 09/27/21 10/10/21 estradiol 0.01% (0.1 mg/gram) See Rx Instructions vaginal DAILY 10/04/21 10/10/21 vaginal cream #42.5 grams Previous Rx's Medication Instructions Recorded acetaminophen 325 mg tablet 650 mg PO Q4H PRN PRN 04/01/16 (Tylenol) loratadine 10 mg disintegrating 10 mg PO PRN allergy symptoms #30 01/24/20 tablet tab-caps tramadol 50 mg tablet 50 mg PO BID PRN pain #30 tab-caps 06/25/20 nystatin-triamcinolone 100,000 1 applic topical BID #30 grams 11/23/20 unit/g-0.1 % topical cream ipratropium 0.5 mg-albuterol 3 mg 3 ml inhalation Q6H PRN wheezing 06/21/21 (2.5 mg base)/3 mL nebulization #180 mL soln zolpidem 10 mg tablet (Ambien) 10 mg PO QHS #30 tabs 07/29/21 triamcinolone acetonide 0.5 % 1 applic topical BID #15 grams 09/09/21 topical cream estradiol 0.01% (0.1 mg/gram) See Rx Instructions vaginal DAILY 10/04/21 vaginal cream #42.5 grams Allergies Allergy/AdvReac Type Severity Reaction Status Date / Time No Known Allergies Allergy Verified 10/08/21 18:49 <RIAZ Hanks - Last Filed: 10/11/21 12:52> General DEJUAN: 3 Review of Systems <Fred Deluna MD - Last Filed: 09/30/21 16:38> All systems reviewed & are unremarkable except as noted in HPI and below Constitutional Constitutional: Denies fever(s) Neurologic Neurologic: Reports as per HPI PFSH <Fred Deluna MD - Last Filed: 09/30/21 16:38> All Active Problems Acute head trauma (Acute) Fall (Acute) Concussion (Acute) Right leg weakness (Acute) GERD (gastroesophageal reflux disease) (Chronic) Sleep apnea (Acute) Lichen sclerosus et atrophicus of the vulva (Acute) No loss of labial architecture. superficial bilateral fissures on labia majora margins. Pruritus (Acute) Xerosis of skin (Acute) Degenerative joint disease (DJD) of lumbar spine (Acute) Trochanteric bursitis, left hip (Acute) Duodenal ulcer (Acute) Gastritis (Acute) Discharge planning issues (Acute) DVT prophylaxis (Acute) Diarrhea (Acute) Acute UTI (Acute) Duodenitis (Acute) Person under investigation for COVID-19 (Acute) Exertional dyspnea (Acute) Chest tightness (Acute) Depression (Chronic) Dyspnea (Acute) Abnormal myocardial perfusion study (Acute) Vaginal dryness, menopausal (Chronic) fdc use of vaginal E2. Chronic pain syndrome (Acute 01/23/17) CONTROLLED SUBSTANCE AGREEMENT 07/21/2019 Antral gastritis (Acute) 01/18/15; DR. ADORNO Arthritis (Acute) Bronchitis (Acute) RE-CURRENT COPD (chronic obstructive pulmonary disease) (Chronic) Diverticulosis of colon (Acute) Fibromyalgia (Acute) she attributes much of her status to this disease will resume amitriptyline to see if it helps with sleep/function Hernia, hiatal (Acute) Herpes, vulvar (Acute 10/21/11) Increased body mass index (Acute) Insomnia (Acute 11/12/11) Irritable bowel syndrome without diarrhea (Acute) Irritable colon (Acute) Myopia (Acute 01/30/16) [facility] Rimma's syndrome (Acute) Sensorineural hearing loss, bilateral (Acute 06/01/14) Sleep apnea (Acute) ORAL APPLIANCE Trigger finger, left middle finger (Acute 04/22/17) Vitamin B deficiency (Acute) Vulvar atrophy (Acute 04/09/11) Irritable bowel syndrome (Acute) Medical History Chronic pain syndrome COPD (chronic obstructive pulmonary disease) Exanthem due to varicella 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 Excised without incident. Benign pathology Irritable bowel syndrome Laryngopharyngeal reflux Mass of vulva R david labia. Obstructive sleep apnea Oral lesion Surgical History EGD - MAC (02/21/20) DR.CHRIS ADORNO-01/2015 Dr. Rich- 02/2020- duodenal ulcer Extraction of cataract 08/22/15; LEFT EYE 09/05/15; RIGHT EYE History of appendectomy History of cataract removal with insertion of prosthetic lens (09/13/15) History of cataract surgery History of colonoscopy 2011- Murali Adorno- normal History of colonoscopy with polypectomy History of esophagogastroduodenoscopy History of total knee arthroplasty LEFT TKA 04/28/16 Family History Mother No problems noted. Social History Smoking/Tobacco Use Status: Former Tobacco Use Quit Date: 05/11/90 Smoking risk assessment performed?: Yes Alcohol Intake: current Alcohol Intake frequency: 0-2 drinks per day Alcohol type: hard liquor Drug use: Never Current gender identity: female Do you feel safe at home: Yes Do you feel safe in your relationship?: Yes History History 0 Para Hx # Term Pregnancies Multiple births Hx # Pregnancies Ectopic pregnancies AB induced Hx Number of Living Children AB spontaneous <RIAZ Hanks - Last Filed: 10/11/21 12:52> Female Reproductive History Menopause type: natural (48yo) Exam <Fred Deluna MD - Last Filed: 09/30/21 16:38> Const General: cooperative and no acute distress Orientation: alert and awake HENMT Head: no palpable skull fracture, normocephalic, no hematomas and no raccoon eyes Mouth: moist mucous membranes Eyes Conjunctivae: normal conjunctivae Sclera: normal sclerae Pupils: PERRL EOM: EOM intact bilaterally Neck Neck: trachea midline, supple, no midline deformity and nontender Resp Auscultation: clear to auscultation bilaterally, no rales, no rhonchi and no wheezes Cardio Jugular venous pressure: no JVD Rate: regular rate and not tachycardic Rhythm: regular rhythm GI Palpation: soft, not firm, no guarding, no masses, not rigid and nontender Skin General skin exam: no rashes or lesions noted Neuro General: patient alert, patient awake, patient oriented x3 and tone normal Cognition: normal cognition Speech: speech normal Gait: normal gait Extrem General: no edema Psych Appearance: grossly normal Mental Status: mental status grossly normal Speech and Movement: speech and movement normal
[2021-09-27 19:53] VITALS: BP 142/95; PULSE 104; RESP 18; TEMP 36.6; O2SAT 94
== END 2021-09-27 19:55 | disposition home or self-care (01) ==
PROVIDERS: Emergency Provider Student in an Organized Health Care Education/Training Program; PCP Nurse Practitioner Family
DX: S06.0X0A Concussion without loss of consciousness, initial encounter (principal); W10.8XXA Fall (on) (from) other stairs and steps, initial encounter
CPT/HCPCS: 99284; 70450; 99283

== ENCOUNTER 2021-10-08 19:27 | Outpatient (CLI) | payer MEDICARE, SELFPAY ==
--- NOTE | 2021-10-08 19:15 | RT.EKG_ITS ---
APPROVED REPORT Exam: Resting ECG Reason for Exam: Weakness Patient Location: O HR:74 bpm ECG Measurements Heart Rate 74 AXIS MI 216 P -6 QRSd 97 QRS -17 QT 428 T 23 QTc 476 Conclusion Sinus rhythm...normal P axis, V-rate 60- 99 Borderline prolonged MI interval...MI >212, V-rate 50- 90
== END 2021-10-08 19:28 | disposition home or self-care (01) ==
LOC: DI.CM 19:28
PROVIDERS: PCP Nurse Practitioner Family; Visit Provider Physician Assistant
DX: R07.89 Other chest pain (principal)
CPT/HCPCS: 93010

== ENCOUNTER 2021-10-08 19:58 | Outpatient (REF) | payer MEDICARE, SELFPAY ==
[2021-10-08 21:55] LABS: Bilirubin Negative (Negative); Blood Negative (Negative); Clarity Clear (Clear); Glucose Negative (Negative); Ketones Negative (Negative); Leukocyte Esterase Negative (Negative); Nitrite Negative (Negative); Specific Gravity >= 1.030 (1.005-1.025); Urobilinogen 0.2 EU/dL (Up TO 0.2); pH 5.5 (5-8)
== END 2021-10-08 19:59 | disposition home or self-care (01) ==
LOC: LBN 19:58
PROVIDERS: PCP Nurse Practitioner Family; Visit Provider Physician Assistant
DX: R39.89 Other symptoms and signs involving the genitourinary system (principal)
CPT/HCPCS: 81003

== ENCOUNTER 2021-10-09 04:14 | Outpatient (CLI) | payer MEDICARE, SELFPAY ==
[2021-10-09 12:29] LABS: Abs Immature Grans 0.04 10^3/uL (0.0-0.06); Absolute Basophil Count 0.05 10^3/uL (0.0-0.2); Absolute Lymphocyte Count 1.33 10^3/uL (1.2-3.4); Absolute Monocyte Count 0.52 10^3/uL (0.1-0.8); Absolute Neutrophil Count 4.61 10^3/uL (1.2-6.7); Basophils % 0.7; Eosinophils % 4.4; Immature Grans % 0.6; Lymphocytes % 19.4; MCH 32.6 pg (27.0-33.0); MCHC 34.1 % (32.0-36.0); MCV 95 fL (80-95); MPV 10.1 fL (8.0-11.0); Monocytes % 7.6; Neutrophils % 67.3; Platelet Count 227 10^3/uL (130-400); RDW 13.6 % (11.7-14.6); RDW-SD 47.5 fL; WBC 6.85 10^3/uL (4.4-10.8)
[2021-10-09 13:29] LABS: Magnesium 1.7 mg/dL (1.8-2.4)
[2021-10-09 13:36] LABS: ALT 66 U/L (14-59); AST 57 U/L (15-37); Albumin 3.7 g/dL (3.4-5.0); Alkaline Phosphatase 99 U/L (46-116); Anion Gap 9.6 mmol/L (3-11); BUN 17 mg/dL (7-18); Bilirubin, Total 0.4 mg/dL (0.2-1.0); CO2 26.4 mmol/L (21.0-32.0); CREATININE 0.8 mg/dL (0.55-1.02); Calcium 9.2 mg/dL (8.5-10.1); Chloride 104 mmol/L (98-107); Glucose 116 mg/dL (74-106); Potassium 3.9 mmol/L (3.5-5.1); Sodium 140 mmol/L (136-145); Total Protein 7.1 g/dL (6.4-8.2)
== END 2021-10-09 04:15 | disposition home or self-care (01) ==
LOC: LOS 04:17
PROVIDERS: Physician Assistant; PCP Nurse Practitioner Family; Visit Provider Nurse Practitioner Family
DX: R53.83 Other fatigue (principal)
CPT/HCPCS: 36415; 80053; 83735; 85025

== ENCOUNTER → 2021-10-09 19:03 | Outpatient (CLI) | payer MEDICARE, SELFPAY ==
--- NOTE | 2021-10-09 10:00 | DI.RAD_ITS ---
Exam(s) XR CHEST 2V PA LATERAL EXAM: XR CHEST 2V PA LATERAL CLINICAL HISTORY: fatigue and shakiness, rales RLQ TECHNIQUE: COMPARISON: CR,XR XR CHEST 2V PA LATERAL from 06/21/2021 FINDINGS: The examination is compared to previous examinations including June 21 2021. Heart is not enla rged. Note is again made of presumed chronic pulmonary interstitial changes. No focal consolidation seen. No significant interval change in appearance comparison with prior examination. No pleural e ffusion seen. IMPRESSION: Stable appearance of chest. Presumed chronic pulmonary interstitial disease. RADIATION DOSE DELIVERED: Total DLP
== END ==
PROVIDERS: PCP Nurse Practitioner Family; Visit Provider Physician Assistant
DX: R53.83 Other fatigue (principal); R09.89 Other specified symptoms and signs involving the circulatory and respiratory systems; R25.1 Tremor, unspecified; J84.89 Other specified interstitial pulmonary diseases
CPT/HCPCS: 36415; 80053; 71046; 83735; 85025

== ENCOUNTER → 2021-10-24 02:32 | Outpatient (CLI) | payer MEDICARE, SELFPAY ==
--- NOTE | 2021-10-24 07:00 | DI.CT_ITS ---
Exam(s) CT ABDOMEN PELVIS WO EXAM: CT ABDOMEN PELVIS WO CLINICAL HISTORY: fatigue, abd bloating, diarrhea,R53.83. TECHNIQUE: Imaging Protocol: Axial computed tomography images with coronal and sagittal reformatted images were created and reviewed CONTRAST MATERIAL: Intravenous: none Oral: Yes. Oral contrast was administered for bowel opacification. COMPARISON: CT CT ABDOMEN PELVIS W from 02/20/2020 FINDINGS: VISUALIZED LUNG BASES: There appears to be an element of bilateral interstitial fibrosis. Slightly i ncreased compared to 02/20/2020.. There are no pleural effusions. ABDOMEN: There is no ascites. DUODENUM/GI: The previously described abnormal thickening in the proximal duodenum is again noted. T here is less inflammatory change at this time but there is significant wall thickening over a distanc e of 3.5 cm and endoscopy is recommended. Remainder of the duodenum distal to this as well as proxim al small bowel loops appear unremarkable and there is no evidence of small bowel obstruction. The or al contrast has reached to the splenic flexure colon at time of imaging. There is diverticulosis of the descending-left colon which is severe throughout the entire sigmoid. There is no evidence of obv ious acute diverticulitis. No free air. No free fluid. LIVER: There is an element of hepatic steatosis. No discrete focal hepatic lesions evident. GALLBLADDER/BILIARY: No obvious gallbladder pathology. CBD is not dilated. PANCREAS: No evidence of pancreatic mass nor dilatation of the pancreatic duct. SPLEEN: Spleen is not enlarged. No obvious intrasplenic lesions. ADRENALS: There are no significant adrenal masses. KIDNEYS:No cysts evident. No solid renal masses. No calculi nor hydronephrosis. . ABDOMINAL AORTA: Abdominal aorta is not enlarged. LYMPH NODES: There is no retroperitoneal nor paraaortic adenopathy. ABDOMINAL WALL: No evidence of significant anterior abdominal wall nor inguinal hernia. PELVIS: LYMPH NODES: There is no intrapelvic nor inguinal adenopathy. GI: No evidence of appendicitis.Severe sigmoid diverticulosis. URINARY BLADDER: No calculi nor obvious masses evident REPRODUCTIVE: Uterus and adnexal regions appear [id number]. OSSEOUS: No significant osseous lesions. No fractures IMPRESSION: 1. There is an area of what appears to be significant circumferential wall thickening in the proximal duodenum. This was an area which appeared somewhat concerning on prior CT scan of February 2020. En doscopies recommended. The distal duodenum and remainder of the small bowel appear unremarkable and there is no evidence of bowel obstruction. 2. There is diverticulosis of the descending-left colon at and below the level of the splenic flexure . There is severe extensive diverticulosis of the sigmoid. Although there is no obvious acute diver ticulitis, please note that a subtle case of diverticulitis in the sigmoid can easily be missed here due to the extensive involvement of the entire sigmoid. 3. Other findings as above RADIATION DOSE DELIVERED: 1,135.69mGy.cm Total DLP DATA REPOSITORY: All CT scans at this facility are submitted to the National Radiology Data Registry (NRDR) Dose Index Registry (DIR) with the [employer] (ACR). RADIATION OPTIMIZATION: All CT scans at this facility use at least one of these dose optimization te chniques: automated exposure control; mA and/or kV adjustment per patient size (includes targeted exa ms where dose is matched to clinical indication); or iterative reconstruction.
== END ==
PROVIDERS: PCP Nurse Practitioner Family; Visit Provider Physician Assistant
DX: R53.83 Other fatigue (principal); K57.30 Diverticulosis of large intestine without perforation or abscess without bleeding; R19.7 Diarrhea, unspecified; K63.89 Other specified diseases of intestine
CPT/HCPCS: 74176

== ENCOUNTER 2021-11-18 11:56 | Outpatient (CLI) | payer MEDICARE, SELFPAY ==
[2021-11-18 12:44] LABS: Source Nasal/Nares
[2021-11-18 15:37] LABS: COVID-19 PCR Negative (Negative)
== END 2021-11-18 11:57 | disposition home or self-care (01) ==
LOC: LBO 12:01
PROVIDERS: PCP Nurse Practitioner Family; Visit Provider Surgery
DX: K21.9 Gastro-esophageal reflux disease without esophagitis; K29.70 Gastritis, unspecified, without bleeding; K58.9 Irritable bowel syndrome, unspecified; K75.81 Nonalcoholic steatohepatitis (NASH); Z20.822 Contact with and (suspected) exposure to COVID-19
CPT/HCPCS: 87635; 99215; 99243

== ENCOUNTER 2021-11-19 10:05 | Day surgery (SDC) | payer MEDICARE, SELFPAY ==
[2021-11-19 10:40] VITALS: BP 153/100; PULSE 74; RESP 20; TEMP 36.6; O2SAT 96
[2021-11-19] MEDS: Lactated Ringers 1,000 ML 80 ML IV (10:55)
[2021-11-19 11:02] VITALS: BP 151/91; PULSE 74; RESP 20; TEMP 36.5; O2SAT 94
--- NOTE | 2021-11-19 11:14 | W.ANESPRE ---
General Info Date of Service Date Performed: 11/19/21 Height: 5 ft 4 in Weight: 91.5 kg Body Mass Index (BMI): 34.6 Surgical Procedure: Operation Date: 11/19/21 11:05 Proposed Procedure Side Surgeon p Gastroscopy w/Biopsy Jennifer Mccauley DO Meds Allergies and Home Medications Allergies Allergy/AdvReac Type Severity Reaction Status Date / Time No Known Allergies Allergy Verified 11/19/21 10:36 Home Medication Medication Instructions Recorded acetaminophen 325 mg tablet 650 mg PO Q4H PRN PRN 04/01/16 (Tylenol) loratadine 10 mg disintegrating 10 mg PO PRN allergy symptoms #30 01/24/20 tablet tab-caps estradiol 0.01% (0.1 mg/gram) 1 gm vaginal .COMPLEX PRN 02/27/20 vaginal cream esomeprazole magnesium 40 mg 40 mg PO DAILY 03/19/20 capsule,delayed release (Nexium) tramadol 50 mg tablet 50 mg PO BID PRN pain #30 tab-caps 06/25/20 nystatin-triamcinolone 100,000 1 applic topical BID #30 grams 11/23/20 unit/g-0.1 % topical cream ipratropium 0.5 mg-albuterol 3 mg 3 ml inhalation Q6H PRN wheezing 06/21/21 (2.5 mg base)/3 mL nebulization #180 mL soln methylphenidate HCl 10 mg tablet 10 mg PO DAILY 06/21/21 (Ritalin) zolpidem 10 mg tablet (Ambien) 10 mg PO QHS #30 tabs 07/29/21 triamcinolone acetonide 0.5 % 1 applic topical BID #15 grams 09/09/21 topical cream sertraline 25 mg tablet 100 mg PO BID 09/27/21 estradiol 0.01% (0.1 mg/gram) See Rx Instructions vaginal DAILY 10/04/21 vaginal cream #42.5 grams Current Visit Medications: Current Medications Generic Name Dose Route Start Last Admin Trade Name Freq PRN Reason Stop Dose Admin Ringer's Solution 1,000 mls @ 80 mls/hr 11/19/21 06:00 11/19/21 10:55 IV 12/18/21 23:59 80 mls/hr INFUSION DAVID Administration IV Miscellaneous Supplies 1 each 11/19/21 06:00 Iv Access IV 12/18/21 23:59 DIRECTED DAVID Sodium Chloride 0 ml 11/19/21 06:00 Normal Saline Flush 10 Ml Syr IV 12/18/21 23:59 PRN PRN Sodium Chloride 0 ml 11/19/21 06:00 Normal Saline 10 Ml Vial IJ 12/18/21 23:59 DIRECTED PRN Sterile Water 0 ml 11/19/21 06:00 Water,Injection,Sterile 10 Ml Vial IJ 12/18/21 23:59 DIRECTED PRN PFSH Active Problems Active Problems: Problem Status Onset Code BERMUDEZ (nonalcoholic steatohepatitis) K75.81 [address] of the abdomen R93.5 Abdominal complaints R19.8 GERD (gastroesophageal reflux disease) K21.9 Sleep apnea G47.30 Duodenal ulcer K26.9 Gastritis K29.70 Diarrhea R19.7 Duodenitis K29.80 Exertional dyspnea R06.00 Chest tightness R07.89 Dyspnea R06.00 Abnormal myocardial perfusion study R94.39 Chronic pain syndrome 01/23/17 G89.4 Antral gastritis K29.50 COPD (chronic obstructive pulmonary disease) J44.9 Diverticulosis of colon K57.30 Hernia, hiatal K44.9 Irritable bowel syndrome without diarrhea K58.9 Sleep apnea G47.30 Medical History Medical History Acute UTI Arthritis Bronchitis RE-CURRENT Chronic pain syndrome COPD (chronic obstructive pulmonary disease) Degenerative joint disease (DJD) of lumbar spine Depression Exanthem due to varicella 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 Excised without incident. 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 superficial bilateral fissures on labia majora margins. Loss of balance Mass of vulva R david labia. Myopia (01/30/16) [facility] Obstructive sleep apnea Oral lesion Pruritus Rimma's syndrome Right leg weakness Sensorineural hearing loss, bilateral (06/01/14) Trigger finger, left middle finger (04/22/17) Trochanteric bursitis, left hip Vaginal dryness, menopausal oysterman use of vaginal E2. Vitamin B deficiency Vulvar atrophy (04/09/11) Xerosis of skin Surgical History Surgical History EGD - MAC (02/21/20) DR.CHRIS ADORNO-01/2015 Dr. Rich- 02/2020- duodenal ulcer Extraction of cataract 08/22/15; LEFT EYE 09/05/15; RIGHT EYE History of appendectomy History of cataract removal with insertion of prosthetic lens (09/13/15) History of cataract surgery History of colonoscopy 2011- Murali Adorno- normal History of colonoscopy with polypectomy History of esophagogastroduodenoscopy History of total knee arthroplasty LEFT TKA 04/28/16 Tobacco Smoking/Tobacco Use Status: Former Tobacco Use Alcohol Alcohol Intake: current Alcohol intake frequency: 0-2 drinks per day Alcohol type: hard liquor Substance Use Substance use: Never Prental History History 0 Para Hx # Term Pregnancies Multiple births Hx # Pregnancies Ectopic pregnancies AB induced Hx Number of Living Children AB spontaneous Vital Signs and Lab Results Vital Signs Most Recent Vital Signs in EMR: Most Recent Vital Signs Temp Pulse Resp BP Pulse Ox 36.5 C 74 20 151/91 H 94 11/19/21 11:02 11/19/21 11:02 11/19/21 11:02 11/19/21 11:02 11/19/21 11:02 Lab Results Blood Type / Crossmatch: No Data to Display Complete Blood Count: No Data to Display Complete Metabolic Panel: No Data to Display Liver Function Panel: No Data to Display Coagulation Panel: No Data to Display Cardiac Panel: No Data to Display Arterial Blood Gas: No Data to Display Venous Blood Gas: No Data to Display Pancreas Panel: No Data to Display Thyroid Panel: No Data to Display Infectious Disease: Coronavirus (COVID-19)(PCR) Negative (Negative) 11/18/21 10:40 Coronavirus 2019 Source Nasal/Nares 11/18/21 10:40 Blood Cultures: No Data to Display Toxicology Panel: No Data to Display Imaging and Studies Imaging and Studies Study information below may be from another EMR and interpreted by another provider. Please see original notes in EMR for more complete details. EKG Summary: Conclusion Sinus rhythm...normal P axis, V-rate 60- 99 Borderline prolonged GA interval...GA >212, V-rate 50- 90 10/08/21 Stress Test Summary: MPI Conclusion No evidence of myocardial infarction No significant myocardial ischemia Calculated EF 51% Radiologist Interpretation Radiologist agrees with Employment Office Clerk's Interpretation. Radiologist Interpretation by: Giuseppe Garcia MD 10/13/19 Anesthesia Assessment and Plan Anesthesia History Personal History: No History of Anesthesia Complications Family History: No Family History of Anesthesia Complications Exercise Tolerance Exercise Tolerance: Metabolic Equivalents>4 Pertinent Negatives Pertinent Negatives: No Major Cardiovascular Symptoms or Complaints, No Major Pulmonary Symptoms or Complaints and No History of CVA/TIA Cardiac & Pulmonary Exam Cardiac Exam: Normal S1/S2 Heart Sounds Pulmonary Exam: Clear Bilateral Breath Sounds Implantable Cardiac Device Does patient have a Pacemaker or an ICD?: No Airway Exam Known Difficult Airway: No Mallampati Class: 1 Mouth Opening: Normal (> 3cm) Thyromental Distance: Greater than 3 cm Neck Range of Motion: Full ROM Neck Circumference: Normal Teeth Condition: Normal Dentition ASA Classification ASA Score: ASA 2 Emergency Case?: No NPO Status NPO Status: NPO Clears >2 hours, Solids >8 hours Anesthesia Plan Resuscitation Status: Full Code Anesthesia Technique: General Anesthesia Airway Planned: Natural Airway Monitors Used: Standard Monitors
[2021-11-19 11:33] VITALS: BMI 34.6
--- NOTE | 2021-11-19 11:50 | STOM_PTH ---
PATIENT: Lesa Metz LOC: [facility] U#:[id number] AGE/SX: 80/F ROOM: RE11/19/[address]: Jennifer Mccauley : 1940 BED: DIS: 11/19/2021 SPEC #: [id number] RECD: 11/19/21 12:44 STATUS: ELGIN REQ #: [id number] ESME: 11/19/21 11:[address]: Jennifer Mccauley DEPT: Surgical Specimen RECD BY: Sandra Motley ENTERED: 11/19/21 12:46 SP TYPE: STOMACH OTHR DR: [place], FITNESS WORKER Tissues: 1 - BIOPSY BOWEL 2 - STOMACH BIOPSY 3 - STOMACH BIOPSY 4 - ESOPHAGUS BIOPSY 5 - ESOPHAGUS BIOPSY Procedures: GROSS AND MICRO LEVEL 4 Comments: [id number]
[2021-11-19 12:05] VITALS: BP 113/78; PULSE 88; RESP 20; TEMP 36.5; O2SAT 93
--- NOTE | 2021-11-19 12:14 | W.PM.DSUDISC ---
Discharge Plan Disposition Patient Disposition: HOME Condition: Good Discharge Details Reason For Visit: stomach scope Attending Provider: Jennifer Mccauley Primary Care Provider: [place] Home Meds and New Rx's Prescriptions: New sucralfate [Carafate] 1 gram tablet 1 g PO Q6H PRN PRN (Reason: abdominal pain) Qty: 120 12RF Rx Instructions: can dissolve in water pantoprazole [Protonix] 40 mg tablet,delayed release (DR/EC) 40 mg PO DAILY Qty: 30 12RF Continued sertraline 25 mg tablet 100 mg PO BID nystatin-triamcinolone 100,000-0.1 unit/g-% cream 1 applic topical BID Qty: 30 1RF triamcinolone acetonide 0.5 % cream 1 applic topical BID Qty: 15 1RF estradiol 0.01 % (0.1 mg/gram) cream 1 gm VG .COMPLEX PRN Rx Instructions: 1 g vaginal 2-3x per week PRN; methylphenidate HCl [Ritalin] 10 mg tablet 10 mg PO DAILY ipratropium-albuterol 0.5 mg-3 mg(2.5 mg base)/3 mL solution for nebulization 3 ml inhalation Q6H PRN (Reason: wheezing) Qty: 180 0RF zolpidem [Ambien] 10 mg tablet 10 mg PO QHS Qty: 30 0RF loratadine 10 mg tablet,disintegrating 10 mg PO PRN Qty: 30 4RF tramadol 50 mg tablet 50 mg PO BID PRN (Reason: pain) Qty: 30 0RF estradiol 0.01 % (0.1 mg/gram) cream See Rx Instructions vaginal DAILY Qty: 42.5 3RF Rx Instructions: Insert 1-2G in the vagina at night for 14 nights then use half the initial dose 3 x week. acetaminophen [Tylenol] 325 MG tablet 650 mg PO Q4H PRN PRN0RF Discontinued esomeprazole magnesium [Nexium] 40 mg capsule,delayed release(DR/EC) 40 mg PO DAILY Discharge Instructions Additional Instructions: Post EGD Instruction ?You had anesthesia for your EGD/stomach scope today.? For your safety, please do the following for the next twenty-four (24) hours: Do Not operate a motor vehicle (car, truck, motorcycle, etc.) Do Not drink alcoholic beverages or use any recreational drugs for the first 24 hours or while taking pain medications. The medications in your body may have a reaction that can be dangerous. Do Not make any important decisions or sign any important papers You have just had a gastroscopy (EGD) or upper GI tract examination. It is important for your smooth recovery that you carefully follow the recommendations below. Do not hesitate to call if any questions should arise about your anesthesia, condition, or care. -Symptoms you may experience during the next 24 hours: ?1. Mild abdominal pain or excessive gas or a bloated feeling which improves with rest, liquids, eating? slightly, and walking as tolerated. 2. Drowsiness and/or forgetfulness because of the medications you were given. ?3. Throat numbness for about 1 hour. 4. A sore throat which you can treat with throat lozenges or by gargling with salt water 4-5 times a day. 5. Redness at the site of your IV which you can treat with warm compresses. SPECIAL INSTRUCTIONS: 1. You may resume your previous diet in one hour. We recommend a light meal to start, then progress as tolerated. 2. Restart regular medications in one hour. 3. No aspirin or non-steroidal containing medication for three days. 4. No lifting over 20 pounds or strenuous activity for the first 24 hours after your procedure. After 24 hours there are no restrictions on your activity, but you may feel fatigued for a few days. Findings: -gastritis-mild -esophagitis-mild -Medications: Protonix daily carafate prn -Continue to follow lifestyle modifications: No alcohol, tobacco products, Aspirin or NSAID's (ibuprofen, Motrin, Naprosyn, aleve, etc).? Try to limit/avoid:? soda pop/any carbonated beverages, caffeine (including tea & chocolate), and acidic foods, (tomatoes, citrus, onions, peppermints) spicy or fried/fatty foods. Do not lie down for 30 minutes after eating, and do not eat 2 hours prior to bedtime. Avoid wearing tight fitting clothing/ belts. *No alcohol for 2 weeks. Follow up: -My office will send a letter with the results of your biopsy?s in 2-3wks time. Call the office at [phone] (Office) or [phone] (Hospital), or go to the ER right away if you notice any of the followin. Vomiting blood and /or ?coffee ground? material. ?2. Worsening of abdominal pain or cramping. ?3. Trouble with breathing, cough, and/or fever (temperature above 101.5 F). 4. Increasing pain with swallowing. ?5. Chest pain. 6. Any new symptoms. 7. Worsening of the redness at the IV site Activity:: see above Diet:: see above DS: Diagnosis Discharge Diagnosis (1) GERD (gastroesophageal reflux disease): Status: Chronic (2) Diarrhea: Status: Acute (3) Duodenitis: Status: Acute (4) BERMUDEZ (nonalcoholic steatohepatitis): Status: Acute (5) Elevated LFTs: Status: Acute (6) Gastritis: Status: Acute
--- NOTE | 2021-11-19 12:29 | W.PM.ENDDOP ---
Date of service: 11/19/21 Time of Service: 12:29 Endoscopy Report DATE OF PROCEDURE: 11/19/21 PRE-OP DIAGNOSIS: hx of duodenal ulcer/abnl CT POST-OP DIAGNOSIS: other (mild gastritis/eophagitis) SURGEON: Jennifer Mccauley ANESTHESIA TYPE: General:No Airway ESTIMATED BLOOD LOSS: 1 PATHOLOGY: other COMPLICATIONS: None DISPOSITION: same day PROCEDURE DESCRIPTION: After informed consent was obtained the patient was take to the procedure room and placed in a supine position. Monitors were applied and a time out was done. The patients name, date of , procedure type, allergies to medications and metal in their body was reviewed. A bite block was placed and the patient was sedated. Once sedated and comfortable the gastroscope was advanced through the oropharynx which was grossly normal into the esophagus. The proximal and mid-esophagus were . In the distal esophagus there is no esophageal erosions, varices, diverticula or stricture apparent. She does have some mild esophagitis at the GE junction. Biopsies of this area are taken.. The scope was advanced into the stomach and through the pylorus into the 3rd portion of the duodenum. The duodenum was noted to be nl. There are no masses or ulcerations noted. Biopsies were taken of the duodenal bulb. Biopsies were done no. There is some mild gastritis at the antrum and the dependent portion of the stomach and a diffuse echo he has borderline erythematous fashion. the scope was retracted back into the stomach and biopsies were done to rule out H. pylori. There were no ulcers. The scope was retroflexed. The cardia and fundus were noted to be normal. There no a hiatal hernia noted. The scope was retracted back into the esophagus and biopsies were done of the GE junction to rule out Blair's. The Z line was regular. The GE junction was at 38 cm. There is some mild esophagitis. Biopsies were taken. The distal esophagus is at 36 cm. Biopsies were taken. The scope was removed and the patient was woken up and taken back to [facility] in stable condition.
[2021-11-19 12:32] VITALS: BP 146/90; PULSE 79; RESP 20; TEMP 36.5; O2SAT 96
--- NOTE | 2021-11-19 12:35 | W.ANESPOSTOP ---
Postoperative Evaluation Date, Time and Location Date Performed: 11/19/21 Time Performed: 12:35 Patient Location: Day Surgery Unit Vital Signs Most Recent Imported Vital Signs: Most Recent Vital Signs Temp Pulse Resp BP Pulse Ox 36.5 C 88 20 113/78 93 11/19/21 12:05 11/19/21 12:05 11/19/21 12:05 11/19/21 12:05 11/19/21 12:05 Pain Score Most Recent Pain Score: Most Recent Pain Score Pain Level 0 11/19/21 10:40 Assessment Mental Status: Awake (Alert & Oriented to Patient Baseline) Airway and Respiratory Function: Patent airway with normal (patient baseline) respiratory exam Cardiovascular Function: Hemodynamically Stable Hydration Status: Adequately Hydrated Nausea & Vomiting: No Nausea or Vomiting Pain: Pt. Denies Any Pain Peripheral Nerve Block: Patient did not receive a nerve block
== END 2021-11-19 13:36 | disposition home or self-care (01) ==
PROVIDERS: PCP Nurse Practitioner Family; Visit Provider Surgery
PROC: 0DJ68ZZ Inspection of Stomach, Via Natural or Artificial Opening Endoscopic (ICD-10-PCS; CPT 43235; principal; 2021-11-19 11:00)
DX: K21.9 Gastro-esophageal reflux disease without esophagitis (principal); Z87.11 Personal history of peptic ulcer disease; K29.70 Gastritis, unspecified, without bleeding; K20.90 Esophagitis, unspecified without bleeding; K22.89 Other specified disease of esophagus; K31.89 Other diseases of stomach and duodenum
CPT/HCPCS: 43239; 88305

== ENCOUNTER 2022-02-25 14:44 | Outpatient (CLI) | payer MEDICARE, SELFPAY ==
[2022-02-25 15:48] LABS: Abs Immature Grans 0.02 10^3/uL (0.0-0.06); Absolute Basophil Count 0.05 10^3/uL (0.0-0.2); Absolute Eosinophil Count 0.21 10^3/uL (0.0-0.7); Absolute Lymphocyte Count 1.47 10^3/uL (1.2-3.4); Absolute Monocyte Count 0.51 10^3/uL (0.1-0.8); Absolute Neutrophil Count 3.69 10^3/uL (1.2-6.7); Basophils % 0.8; Eosinophils % 3.5; HCT 39.5 % (36.0-46.0); HGB 13.8 g/dL (11.2-15.7); Immature Grans % 0.3; Lymphocytes % 24.7; MCH 31.6 pg (27.0-33.0); MCHC 34.9 % (32.0-36.0); MCV 90 fL (80-95); MPV 10.7 fL (8.0-11.0); Monocytes % 8.6; Neutrophils % 62.1; Platelet Count 203 10^3/uL (130-400); RBC 4.37 10^6/uL (3.93-5.22); RDW-SD 46.8 fL; WBC 5.95 10^3/uL (4.4-10.8)
[2022-02-25 16:45] LABS: ALT 87 U/L (14-59); AST 71 U/L (15-37); Albumin 3.9 g/dL (3.4-5.0); Alkaline Phosphatase 88 U/L (46-116); Anion Gap 10.3 mmol/L (3-11); BUN 22 mg/dL (7-18); Bilirubin, Total 0.9 mg/dL (0.2-1.0); CO2 22.7 mmol/L (21.0-32.0); CREATININE 0.9 mg/dL (0.55-1.02); Calcium 9.3 mg/dL (8.5-10.1); Chloride 103 mmol/L (98-107); Estimated GFR 64.63 (mL/min/1.73m2); Folate 11.3 ng/mL (8.6-20.0); Glucose 101 mg/dL (74-106); Potassium 4.2 mmol/L (3.5-5.1); Sodium 136 mmol/L (136-145); TSH (W/Ref FT4) 2.72 uIU/mL (0.36-3.74); Total Protein 7.7 g/dL (6.4-8.2); Vitamin B12 259 pg/mL (193-986)
[2022-02-27 05:07] LABS: Vitamin D 25 Total 39.6 ng/mL (30-100)
== END 2022-02-25 14:45 | disposition home or self-care (01) ==
LOC: LBO 14:48
PROVIDERS: PCP Nurse Practitioner Family; Visit Provider Nurse Practitioner Family
DX: F41.1 Generalized anxiety disorder (principal); Z79.899 Other long term (current) drug therapy; R26.89 Other abnormalities of gait and mobility
CPT/HCPCS: 36415; 80053; 82306; 82607; 82746; 84443; 85025

== ENCOUNTER → 2022-03-21 00:16 | Outpatient (CLI) | payer MEDICARE, SELFPAY ==
--- NOTE | 2022-03-21 07:58 | DI.MAMMO_ITS ---
Exam(s) US BREAST LT COMPLETE US BREAST RT COMPLETE MG MAMMO DIAGNOSTIC BI EXAM: MG MAMMO DIAGNOSTIC BI CLINICAL HISTORY: B/L breat/nipple pain,n64.4. TECHNIQUE: Bilateral CC and MLO as well as bilateral spot compression 3D mammographic images were ob tained with 3D tomosynthesis technique and utilizing computer aided detection (CAD). COMPARISON: There are no prior mammograms available at the time of this interpretation. This 81-year-old patient apparently has bilateral retroareolar region pain. Denies lumps and denies nipple discharge. FINDINGS: DIAGNOSTIC BILATERAL MAMMOGRAM: There are no obvious spiculated masses nor malignant-appearing microcalcification groups in either br east. No significant architectural distortion or skin thickening-traction. We proceeded with bilateral ultrasound examination..... COMPLETE BILATERAL BREAST ULTRASOUND: There is no evidence of solid or significant cystic lesions in all 4 quadrants of both breasts nor in the retroareolar regions. There is a solitary finding of a 4 x 2 millimeter benign microcyst at the 2 o'clock central position of the right breast, approximately 1 centimeters from the nipple. There are no dilated ducts in either breast and no evidence of papillomas in the retroareolar regions. Scanning of both axillary regions reveals benign-appearing lymph nodes with no significant adenopathy . IMPRESSION: No radiographic evidence of malignancy No concerning findings on bilateral complete breast ultrasound. Appropriate follow-up is repeat breast imaging in 3 months if symptoms persist. The patient was informed of the findings and follow-up recommendations prior to leaving the [facility] today. BI-RADS Category 3 - 3 month - Probably Benign Finding: Recommend follow-up mammography in 3 months, if clinically indicated. Breast Density - Category B - Scattered areas of fibroglandular density Breast density Category C or D implies that the patient has dense breast tissue. Dense breast tissue can make it harder to find cancer on a mammogram. Dense breast tissue is also associated with an incr eased risk of breast cancer. This information about the result of the mammogram report was provided to the patient to raise their awareness. Use this report when you speak with the patient about their risks for breast cancer, which includes their family history. At that time, you may recommend additional screening tests (Ultrasoun d or MRI) as these tests may add significant information. A negative radiographic report should not delay biopsy if a dominant or clinically suspicious mass is present. Up to ten percent of cancers are not identified on mammography. A negative report may reinforce clinical impression. Adenosis and dense breasts may obscure an underlying neoplasm. False positive reports average 6 to 10%. Patient will receive a letter notifying them of these results.
== END ==
PROVIDERS: PCP Nurse Practitioner Family; Visit Provider Obstetrics & Gynecology
DX: N64.4 Mastodynia (principal)
CPT/HCPCS: 76642; 77062; 77066; G0279

== ENCOUNTER 2022-04-08 16:07 | Outpatient (CLI) | payer MEDICARE, SELFPAY ==
[2022-04-08 15:32] LABS: Abs Immature Grans 0.02 10^3/uL (0.0-0.06); Absolute Basophil Count 0.04 10^3/uL (0.0-0.2); Absolute Eosinophil Count 0.44 10^3/uL (0.0-0.7); Absolute Lymphocyte Count 1.73 10^3/uL (1.2-3.4); Absolute Monocyte Count 0.39 10^3/uL (0.1-0.8); Basophils % 0.7; Eosinophils % 7.2; HCT 41.1 % (36.0-46.0); HGB 13.9 g/dL (11.2-15.7); Immature Grans % 0.3; Lymphocytes % 28.3; MCHC 33.8 % (32.0-36.0); MCV 92 fL (80-95); MPV 10.6 fL (8.0-11.0); Monocytes % 6.4; Neutrophils % 57.1; Platelet Count 188 10^3/uL (130-400); RBC 4.49 10^6/uL (3.93-5.22); RDW-SD 47.1 fL; WBC 6.12 10^3/uL (4.4-10.8)
[2022-04-08 16:19] LABS: Iron 82 ug/dL (50-170); Total Iron Binding Capacity 362 ug/dL (250-450)
[2022-04-08 16:22] LABS: ALT 51 U/L (14-59); AST 42 U/L (15-37); Albumin 3.8 g/dL (3.4-5.0); Alkaline Phosphatase 89 U/L (46-116); Anion Gap 7.9 mmol/L (3-11); BUN 26 mg/dL (7-18); Bilirubin, Total 0.6 mg/dL (0.2-1.0); CO2 26.1 mmol/L (21.0-32.0); Calcium 9.2 mg/dL (8.5-10.1); Chloride 100 mmol/L (98-107); Estimated GFR 56.95 (mL/min/1.73m2); Ferritin 232 ng/mL (8-252); Folate 5.2 ng/mL (8.6-20.0); Glucose 134 mg/dL (74-106); Potassium 4.1 mmol/L (3.5-5.1); Sodium 134 mmol/L (136-145); Total Protein 7.8 g/dL (6.4-8.2)
[2022-04-10 09:03] LABS: Transferrin 306 mg/dL (201-352)
== END 2022-04-08 16:08 | disposition home or self-care (01) ==
LOC: LBO 16:08
PROVIDERS: PCP Nurse Practitioner Family; Visit Provider Nurse Practitioner Family
DX: K29.80 Duodenitis without bleeding (principal); R53.83 Other fatigue
CPT/HCPCS: 36415; 80053; 82728; 82746; 83540; 83550; 84466; 85025

== ENCOUNTER → 2022-05-07 14:03 | Outpatient (BNVA) | payer MEDICARE, SELFPAY | PROVIDERS: PCP Nurse Practitioner Family; Referring Provider Nurse Practitioner Family; Visit Provider Surgery | DX: R19.7 Diarrhea, unspecified (principal) | CPT/HCPCS: 99215 ==

== ENCOUNTER 2022-05-15 09:13 | Day surgery (SDC) | payer MEDICARE, SELFPAY ==
--- NOTE | 2022-05-14 21:15 | W.PM.DSUDISC ---
Date of service: 05/15/22 Time of Service: 11:28 Discharge Plan Disposition Patient Disposition: Home Condition: Good Discharge Details Reason For Visit: Colonoscopy with biopsies Attending Provider: Cosme Soriano Primary Care Provider: [place] Home Meds and New Rx's Prescriptions: Continued sertraline 25 mg tablet 100 mg PO HS nystatin-triamcinolone 100,000-0.1 unit/g-% cream 1 applic topical BID Qty: 30 1RF triamcinolone acetonide 0.5 % cream 1 applic topical BID Qty: 15 1RF estradiol 0.01 % (0.1 mg/gram) cream 1 g VG .COMPLEX PRN (Reason: Vaginal atrophy) Qty: 42.5 3RF Rx Instructions: 1 g vaginal 2-3x per week PRN; methylphenidate HCl [Ritalin] 10 mg tablet 10 mg PO DAILY PRN zolpidem [Ambien] 10 mg tablet 10 mg PO QHS Qty: 30 0RF tramadol 50 mg tablet 50 mg PO BID PRN (Reason: pain) Qty: 30 0RF vitamin B complex-folic acid [B Complex 1 (with folic acid)] 0.4 mg tablet 1 tab PO DAILY Qty: 90 3RF benzonatate 100 mg capsule 100 - 200 mg PO TID PRN (Reason: cough) Qty: 60 0RF Rx Instructions: Take 1-2 capsules by mouth three times a day as needed for cough albuterol sulfate 90 mcg/actuation HFA aerosol inhaler 2 puff inhalation Q6H PRN (Reason: shortness of breath or wheezing) Qty: 6.7 0RF Rx Instructions: 2 puffs every 6 hours as needed for cough, sob, wheeze (DME) Aerochamber MV Spacer See Rx Instructions .Route Qty: 1 0RF Rx Instructions: As directed loratadine 10 mg tablet,disintegrating 10 mg PO PRN PRN acetaminophen [Tylenol] 325 MG tablet 650 mg PO Q4H PRN PRN0RF pantoprazole [Protonix] 40 mg tablet,delayed release (DR/EC) 40 mg PO DAILY Qty: 30 12RF Discontinued polyethylene glycol 3350 17 gram/dose powder 238 g PO ONCE Qty: 238 0RF Rx Instructions: take per colonoscopy instructions bisacodyl [Dulcolax (bisacodyl)] 5 mg tablet,delayed release (DR/EC) 5 mg PO ONCE Qty: 4 0RF Rx Instructions: take per colonoscopy instructions Discharge Instructions Instructions: Diverticulosis (GEN), Colorectal Polyps (GEN) Additional Instructions: 1. If tolerated, consume a soft, low fiber diet for 1-2 days. 2[address] Do not drive, drink alcohol, operate machinery, make critical decisions, or do activities that require coordination or balance for 24 hours. 3. Because air was put into your colon during the procedure, expelling air from your rectum (passing gas or farting) is normal. 4. You may not have a bowel movement for 1-3 days because of the colonoscopy prep. This is normal. 5. Go directly to the emergency room if you notice any of the following: Develop chills (warm to touch), or if you have a thermometer and your temperature is above 101 Difficulty breathing or difficultly swallowing Persistent vomiting Severe abdominal pain, other than gas cramps Severe chest pain Black, tarry stools Any bleeding ? exceeding one tablespoon 6. Call your physician if the site where your intravenous was started becomes red, swollen, painful, and warm to touch. 7. Your physician has reviewed your pre-procedure medications. Please continue to take those medications as previously ordered. You will be given specific information/education regarding any changes to your medications before leaving. Activity:: Activity as Tolerated Diet:: As Tolerated Discharge Orders Discharge Orders: Discharge Order (Routine); Ordered 05/14/22 Ordered By: Cosme Soriano DS: Diagnosis Discharge Diagnosis (1) Diarrhea: Status: Acute Asessment and Plan: We performed a diagnostic colonoscopy today. I examined the area of your ileocecal valve, which was a concern on your previous colonoscopy. This appeared normal to me. I did not see any evidence of polyps or tumors here. I did find polyps at 110 cm as well as 70 cm. Both of these were completely removed. You have diverticulosis of the colon that was seen on your last colonoscopy. Otherwise, I do not see any evidence of abnormalities. I did perform random biopsies as was recommended by the slitter and rewinder at [facility]. I will contact you when the results of those biopsies are available.
--- NOTE | 2022-05-14 21:17 | W.COLOREPORT ---
Date of service: 05/15/22 Time of Service: 11:35 Colonoscopy Report Date of procedure: 05/15/22 Pre-op diagnosis general: Chronic diarrhea Procedure: Colonoscopy with polypectomy Surgeon: Cosme Soriano Anesthesia Type: General:No Airway Estimated blood loss (mL): 30 Pathology: other (Random biopsies of cecum, ascending, transverse, and descending colons, random biopsies of rectum, polyps at 110 cm and 70 cm) Complications: None Disposition: same day Indications: Karen is an 81-year-old woman with chronic diarrhea who underwent a previous colonoscopy. At that time, there were concerns that maybe there was a tumor on the ileocecal valve. After that test, she was referred to the pattern data operator at [facility]. Recommendations were made to repeat colonoscopy to clear the ileocecal valve, as well as to obtain random biopsies to rule out microcytic colitis. she is here following up on that recommendation. Prep: Miralax/Dulcolax Procedure Start Time: 10:35 Procedure End Time: 11:11 Retraction Time: 25 Findings: Mostly sigmoid diverticulosis, normal ileocecal valve, colon polyps at 110 and 70 cm. Procedure Description: After the induction of monitored anesthetic care, and with the patient in left lateral decubitus position, I began by performing an external anorectal exam.? Perineum and skin were normal, as was the anal verge.? There was no evidence of external hemorrhoids.? Next, I performed a digital rectal exam.? I did not appreciate any abnormal findings.? Next, I advanced a colonoscope into the rectal vault.? I performed retroflexion.? This appeared normal to me..? Using insufflation, I then advanced the colonoscope beyond the rectal folds and into the sigmoid colon before advancing towards the cecum.? There was sigmoid diverticulosis. There was some other random diverticula throughout the length of the large intestine. The quality of the prep was adequate.? The scope was noted to be in the cecum by identification of the ileocecal valve and appendiceal orifice.? Great care was taken to examine the entirety of the cecum, as well as the ileocecal valve. I did not see any evidence of colon cancer, or colon polyps. I then began withdrawing the colonoscope using repeated irrigation as necessary for full evaluation of the colonic mucosa. Around 110 cm from the anal verge I identified a 0.25 cm polyp. ?It appeared sessile cold forcep polypectomy in character. ?I was able to remove this with a . ?I examined the site, and there was minimal bleeding. Similarly, I identified a 0.5 cm polyp at 70 cm from the anal verge. This was also sessile. This was also removed with cold forcep polypectomy once this was completed, I continued to withdraw the scope and examine the remainder of the colonic mucosa.?Once the scope was withdrawn to the level of the rectum, great care was taken to examine portions of the rectal folds.? Finally, the scope was withdrawn and the patient was brought to the same-day surgery recovery unit as the anesthetic wore off. ?The findings and instructions were shared with the patient prior to discharge.
[2022-05-15 09:40] VITALS: BP 133/99; PULSE 99; RESP 18; TEMP 36.1; O2SAT 97
--- NOTE | 2022-05-15 09:57 | ANES.PREOP_ITS ---
General Info Date of Service Date Performed: 05/15/22 Height: 5 ft 3 in Weight: 89.074 kg Body Mass Index (BMI): 34.7 Surgical Procedure: Operation Date: 05/15/22 10:35 Proposed Procedure Side Surgeon carrie Soriano MD Meds Allergies and Home Medications Allergies Allergy/AdvReac Type Severity Reaction Status Date / Time No Known Allergies Allergy Verified 05/15/22 09:35 Home Medication Medication Instructions Recorded acetaminophen 325 mg tablet 650 mg PO Q4H PRN PRN 04/01/16 (Tylenol) nystatin-triamcinolone 100,000 1 applic topical BID #30 grams 11/23/20 unit/g-0.1 % topical cream methylphenidate HCl 10 mg tablet 10 mg PO DAILY PRN 06/21/21 (Ritalin) zolpidem 10 mg tablet (Ambien) 10 mg PO QHS #30 tabs 07/29/21 triamcinolone acetonide 0.5 % 1 applic topical BID #15 grams 09/09/21 topical cream sertraline 25 mg tablet 100 mg PO HS 09/27/21 pantoprazole 40 mg tablet,delayed 40 mg PO DAILY #30 tabs 11/19/21 release (Protonix) estradiol 0.01% (0.1 mg/gram) 1 g vaginal .COMPLEX PRN Vaginal 03/11/22 vaginal cream atrophy #42.5 grams tramadol 50 mg tablet 50 mg PO BID PRN pain #30 tab-caps 04/04/22 albuterol sulfate 90 mcg/actuation 2 puff inhalation Q6H PRN 04/07/22 aerosol inhaler shortness of breath or wheezing #6.7 grams inhalational spacing device #1 ea 04/07/22 (Aerochamber MV spacer) benzonatate 100 mg capsule 100 - 200 mg PO TID PRN cough #60 04/17/22 caps vitamin B complex-folic acid 0.4 1 tab PO DAILY #90 tabs 04/17/22 mg tablet (B Complex 1 (with folic acid)) loratadine 10 mg disintegrating 10 mg PO PRN PRN 05/14/22 tablet Current Visit Medications: Current Medications Generic Name Dose Route Start Last Admin Trade Name Freq PRN Reason Stop Dose Admin Hyoscyamine Sulfate 0.125 mg 05/14/22 21:14 Hyoscyamine 0.125 Mg Sl/Oral/Chew SL DIRECTED PRN Ringer's Solution 1,000 mls @ 80 mls/hr 05/15/22 06:00 IV 06/13/22 23:59 INFUSION [facility] IV Miscellaneous Supplies 1 each 05/15/22 06:00 Iv Access IV 06/13/22 23:59 DIRECTED [facility] Ondansetron HCl 4 mg 05/14/22 21:14 Ondansetron 4 Mg/2 Ml Vial IVP Q4H PRN PRN Nausea / Vomiting Sodium Chloride 0 ml 05/15/22 06:00 Normal Saline Flush 10 Ml Syr IV 06/13/22 23:59 PRN PRN Sodium Chloride 0 ml 05/15/22 06:00 Normal Saline 10 Ml Vial IJ 06/13/22 23:59 DIRECTED PRN Sterile Water 0 ml 05/15/22 06:00 Water,Injection,Sterile 10 Ml Vial IJ 06/13/22 23:59 DIRECTED PRN PFSH Active Problems Active Problems: Problem Status Onset Code Sore throat J02.9 Fatigue R53.83 Reflux esophagitis K21.00 Esophagitis K20.90 BERMUDEZ (nonalcoholic steatohepatitis) K75.81 Elevated LFTs R79.89 GERD (gastroesophageal reflux disease) K21.9 Sleep apnea G47.30 Gastritis K29.70 Diarrhea R19.7 Duodenitis K29.80 Exertional dyspnea R06.00 Chest tightness R07.89 Dyspnea R06.00 Abnormal myocardial perfusion study R94.39 Chronic pain syndrome 01/23/17 G89.4 Antral gastritis K29.50 COPD (chronic obstructive pulmonary disease) J44.9 Diverticulosis of colon K57.30 Hernia, hiatal K44.9 Irritable bowel syndrome without diarrhea K58.9 Sleep apnea G47.30 Medical History Medical History Acute UTI Arthritis Bronchitis RE-CURRENT Chronic pain syndrome COPD (chronic obstructive pulmonary disease) Degenerative joint disease (DJD) of lumbar spine Depression Duodenal ulcer Exanthem due to varicella 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 Excised without incident. 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 superficial bilateral fissures on labia majora margins. Loss of balance Mass of vulva R david labia. 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 Vitamin B deficiency Vulvar atrophy (04/09/11) Xerosis of skin Surgical History Surgical History EGD - MAC (02/21/20) 11/2021 DR.CHRIS ADORNO-01/2015 Dr. Rich- 02/2020- duodenal ulcer Extraction of cataract 08/22/15; LEFT EYE 09/05/15; RIGHT EYE History of appendectomy History of cataract removal with insertion of prosthetic lens (09/13/15) History of cataract surgery History of colonoscopy 2011- Murali Adorno- normal History of colonoscopy with polypectomy History of esophagogastroduodenoscopy History of total knee arthroplasty LEFT TKA 04/28/16 Tobacco Smoking/Tobacco Use Status: Former Tobacco Use Alcohol Alcohol Intake: current Alcohol intake frequency: 0-2 drinks per day Alcohol type: hard liquor Substance Use Substance use: Never Prental History History 0 Para Hx # Term Pregnancies Multiple births Hx # Pregnancies Ectopic pregnancies AB induced Hx Number of Living Children AB spontaneous Vital Signs and Lab Results Vital Signs Most Recent Vital Signs in EMR: Most Recent Vital Signs Temp Pulse Resp BP Pulse Ox 36.1 C L 99 H 18 133/99 H 97 05/15/22 09:40 05/15/22 09:40 05/15/22 09:40 05/15/22 09:40 05/15/22 09:40 Lab Results Blood Type / Crossmatch: No Data to Display Complete Blood Count: No Data to Display Complete Metabolic Panel: No Data to Display Liver Function Panel: No Data to Display Coagulation Panel: No Data to Display Cardiac Panel: No Data to Display Arterial Blood Gas: No Data to Display Venous Blood Gas: No Data to Display Pancreas Panel: No Data to Display Thyroid Panel: No Data to Display Infectious Disease: No Data to Display Blood Cultures: No Data to Display Toxicology Panel: No Data to Display Imaging and Studies Imaging and Studies Study information below may be from another EMR and interpreted by another provider. Please see original notes in EMR for more complete details. EKG Summary: Conclusion Sinus rhythm...normal P axis, V-rate 60- 99 Borderline prolonged ND interval...ND >212, V-rate 50- 90 10/08/21 Stress Test Summary: MPI Conclusion No evidence of myocardial infarction No significant myocardial ischemia Calculated EF 51% Radiologist Interpretation Radiologist agrees with Newspaper Correspondent's Interpretation. Radiologist Interpretation by: Giuseppe Garcia MD 10/13/19 Anesthesia Assessment and Plan Anesthesia History Personal History: No History of Anesthesia Complications Family History: No Family History of Anesthesia Complications Exercise Tolerance Exercise Tolerance: Metabolic Equivalents>4 Pertinent Negatives Pertinent Negatives: No Symptoms of GERD Cardiac & Pulmonary Exam Cardiac Exam: Normal S1/S2 Heart Sounds Pulmonary Exam: Clear Bilateral Breath Sounds Implantable Cardiac Device Does patient have a Pacemaker or an ICD?: No Airway Exam Known Difficult Airway: No Mallampati Class: 3 Mouth Opening: Normal (> 3cm) Thyromental Distance: Greater than 3 cm Neck Range of Motion: Full ROM Neck Circumference: Normal Teeth Condition: Normal Dentition ASA Classification ASA Score: ASA 3 Emergency Case?: No NPO Status NPO Status: NPO Clears >2 hours, Solids >8 hours Anesthesia Plan Resuscitation Status: Full Code Anesthesia Technique: General Anesthesia Airway Planned: Natural Airway Monitors Used: Standard Monitors
[2022-05-15] MEDS: Lactated Ringers 1,000 ML 80 ML IV (10:01)
[2022-05-15 10:17] VITALS: BMI 34.7
--- NOTE | 2022-05-15 11:01 | BOWEL_PTH ---
PATIENT: Lesa Metz LOC: [facility] U#:[id number] AGE/SX: 81/F ROOM: RE05/15/[address]: Cosme Soriano MD : [id number] BED: DIS: 05/15/2022 SPEC #: [id number] RECD: 05/15/22 12:58 STATUS: ELGIN RE #: [id number] ESME: 05/15/22 11:[address]: Cosme Soriano DEPT: Surgical Specimen RECD BY: Sandra Motley ENTERED: 05/15/22 13:00 SP TYPE: Bowel OTHR DR: [place], RAIL SPECIALIST Tissues: 1 - BIOPSY BOWEL 2 - BIOPSY BOWEL 3 - BIOPSY BOWEL 4 - BIOPSY BOWEL 5 - BIOPSY BOWEL 6 - BIOPSY BOWEL 7 - BIOPSY BOWEL Procedures: GROSS AND MICRO LEVEL 4 Comments: [id number]
[2022-05-15 11:22] VITALS: BP 119/90; PULSE 68; RESP 16; TEMP 36.1; O2SAT 94
--- NOTE | 2022-05-15 11:46 | W.ANESPOSTOP ---
Postoperative Evaluation Date, Time and Location Date Performed: 05/15/22 Time Performed: 11:48 Patient Location: Day Surgery Unit Vital Signs Most Recent Imported Vital Signs: Most Recent Vital Signs Temp Pulse Resp BP Pulse Ox 36.1 C L 99 H 18 133/99 H 97 05/15/22 09:40 05/15/22 09:40 05/15/22 09:40 05/15/22 09:40 05/15/22 09:40 Most Recent Manually Entered Vital Signs: Adult Blood Pressure: 119/90 Heart Rate: 68 Respirations: 16 Oxygen Saturation (%): 94 Temperature (C): 36.1 C Pain Score (0-10 Scale): 0 Pain Score Most Recent Pain Score: Most Recent Pain Score Pain Level 0 05/15/22 09:40 Assessment Mental Status: Awake (Alert & Oriented to Patient Baseline) Airway and Respiratory Function: Patent airway with normal (patient baseline) respiratory exam Cardiovascular Function: Hemodynamically Stable Hydration Status: Adequately Hydrated Nausea & Vomiting: No Nausea or Vomiting Pain: Pt. Denies Any Pain Peripheral Nerve Block: Patient did not receive a nerve block
[2022-05-15 11:50] VITALS: BP 119/90; PULSE 68; RESP 16; TEMPC 36.1; O2SAT 94
[2022-05-15 12:14] VITALS: BP 126/81; PULSE 63; RESP 16; TEMP 36; O2SAT 96
== END 2022-05-15 09:14 | disposition home or self-care (01) ==
PROVIDERS: PCP Nurse Practitioner Family; Visit Provider Surgery
PROC: 0DJD8ZZ Inspection of Lower Intestinal Tract, Via Natural or Artificial Opening Endoscopic (ICD-10-PCS; CPT 45378; principal; 2022-05-15 10:30)
DX: K52.9 Noninfective gastroenteritis and colitis, unspecified (principal); K63.5 Polyp of colon
CPT/HCPCS: 45380; 88305

== ENCOUNTER 2022-06-30 15:53 | Outpatient (CLI) | payer MEDICARE, SELFPAY ==
--- NOTE | 2022-06-30 14:30 | DI.RAD_ITS ---
Exam(s) XR CHEST 2V PA LATERAL EXAM: XR CHEST 2V PA LATERAL CLINICAL HISTORY: worsening cough,r05.9 TECHNIQUE: 2D digital imaging was performed. COMPARISON: CR XR CHEST 2V PA LATERAL from 10/09/2021 FINDINGS: HEART: Normal size. Aorta: Not dilated. Tortuous. PULMONARY VASCULATURE: Normal. LUNGS: Fibrotic changes. No superimposed infiltrate visible. PLEURAL SPACE: No pleural effusion or pneumothorax. BONE:Degenerative changes. IMPRESSION: No acute abnormality. DATA REPOSITORY: RADIATION DOSE DELIVERED:
== END 2022-06-30 16:13 ==
PROVIDERS: PCP Nurse Practitioner Family; Visit Provider Nurse Practitioner Family
DX: R05.9 Cough, unspecified (principal)
CPT/HCPCS: 71046

== ENCOUNTER 2022-07-21 03:10 | Outpatient (CLI) | payer MEDICARE, SELFPAY ==
[2022-07-21 12:41] LABS: Abs Immature Grans 0.02 10^3/uL (0.0-0.06); Absolute Basophil Count 0.04 10^3/uL (0.0-0.2); Absolute Eosinophil Count 0.31 10^3/uL (0.0-0.7); Absolute Lymphocyte Count 1.42 10^3/uL (1.2-3.4); Absolute Monocyte Count 0.46 10^3/uL (0.1-0.8); Absolute Neutrophil Count 4.11 10^3/uL (1.2-6.7); Basophils % 0.6; Eosinophils % 4.9; HCT 38.9 % (36.0-46.0); HGB 13.1 g/dL (11.2-15.7); Immature Grans % 0.3; Lymphocytes % 22.3; MCH 31.4 pg (27.0-33.0); MCHC 33.7 % (32.0-36.0); MCV 93 fL (80-95); MPV 10.7 fL (8.0-11.0); Monocytes % 7.2; Neutrophils % 64.7; Platelet Count 169 10^3/uL (130-400); RBC 4.17 10^6/uL (3.93-5.22); RDW 14.2 % (11.7-14.6); RDW-SD 48.9 fL; WBC 6.36 10^3/uL (4.4-10.8)
[2022-07-21 13:48] LABS: ALT 47 U/L (14-59); AST 44 U/L (15-37); Albumin 3.7 g/dL (3.4-5.0); Alkaline Phosphatase 94 U/L (46-116); Anion Gap 12.6 mmol/L (3-11); BUN 15 mg/dL (7-18); Bilirubin, Total 0.7 mg/dL (0.2-1.0); CO2 22.4 mmol/L (21.0-32.0); CREATININE 0.9 mg/dL (0.55-1.02); Calcium 9.3 mg/dL (8.5-10.1); Chloride 105 mmol/L (98-107); Estimated GFR 64.63 (mL/min/1.73m2); Folate 11.5 ng/mL (8.6-20.0); Glucose 122 mg/dL (74-106); Potassium 4.3 mmol/L (3.5-5.1); Sodium 140 mmol/L (136-145); TSH (W/Ref FT4) 2.47 uIU/mL (0.36-3.74); Total Protein 7.6 g/dL (6.4-8.2); Vitamin B12 197 pg/mL (193-986)
== END 2022-07-21 03:11 | disposition home or self-care (01) ==
LOC: LBO 03:10
PROVIDERS: PCP Nurse Practitioner Family; Visit Provider Nurse Practitioner Family
DX: R53.83 Other fatigue (principal); F41.1 Generalized anxiety disorder; Z79.899 Other long term (current) drug therapy
CPT/HCPCS: 36415; 80053; 82607; 82746; 84443; 85025

== ENCOUNTER 2022-08-09 14:22 | Emergency (ER) | payer MEDICARE, SELFPAY ==
[2022-08-09 14:23] VITALS: BP 142/79; PULSE 74; RESP 17; TEMP 37.3; O2SAT 97
--- NOTE | 2022-08-09 14:43 | ED.GENADUL_ITS ---
Discharge Plan Discharge Details Chief Complaint: DentalOral Primary Care Provider: [place] ED Provider: Alexander Dawn Home Meds and New Rx's Prescriptions: No Action sertraline 25 mg tablet 100 mg PO HS nystatin-triamcinolone 100,000-0.1 unit/g-% cream 1 applic topical BID Qty: 30 1RF triamcinolone acetonide 0.5 % cream 1 applic topical BID Qty: 15 1RF estradiol 0.01 % (0.1 mg/gram) cream 1 g VG .COMPLEX PRN (Reason: Vaginal atrophy) Qty: 42.5 3RF Rx Instructions: 1 g vaginal 2-3x per week PRN; albuterol sulfate 90 mcg/actuation HFA aerosol inhaler 2 puff inhalation Q6H PRN (Reason: shortness of breath or wheezing) Qty: 6.7 0RF Rx Instructions: 2 puffs every 6 hours as needed for cough, sob, wheeze methylphenidate HCl [Ritalin] 10 mg tablet 10 mg PO DAILY PRN zolpidem [Ambien] 10 mg tablet 10 mg PO QHS Qty: 30 0RF tramadol 50 mg tablet 50 mg PO BID PRN (Reason: pain) Qty: 30 0RF vitamin B complex-folic acid [B Complex 1 (with folic acid)] 0.4 mg tablet 1 tab PO DAILY Qty: 90 3RF (DME) Aerochamber MV Spacer See Rx Instructions .Route Qty: 1 0RF Rx Instructions: As directed loratadine 10 mg tablet,disintegrating 10 mg PO PRN PRN acetaminophen [Tylenol] 325 MG tablet 650 mg PO Q4H PRN PRN0RF pantoprazole [Protonix] 40 mg tablet,delayed release (DR/EC) 40 mg PO DAILY Qty: 30 12RF Medical Decision Making 81-year-old lady presented to the emergency room with what appears to be a dental abscess. She will be treated with penicillin emergency department sent home with a prescription. I have asked her to follow-up with her dentist in the course of the next week. HPI General Date/Time Provider Initiated Documentation: 08/09/22 14:43 . HPI Narrative: 81-year-old lady presents to the emergency department with a 24-hour history of left facial swelling. Associated with dental pain at the left upper area. No fevers no chills. No difficulty swallowing. Patient states that she took some acetaminophen last evening which helped. Swelling continues to progress. No headaches. No fevers no chills. Related Data Home Medications Medication Instructions Recorded Confirmed acetaminophen 325 mg tablet 650 mg PO Q4H PRN PRN 04/01/16 08/09/22 (Tylenol) nystatin-triamcinolone 100,000 1 applic topical BID #30 grams 11/23/20 08/09/22 unit/g-0.1 % topical cream methylphenidate HCl 10 mg tablet 10 mg PO DAILY PRN 06/21/21 08/09/22 (Ritalin) zolpidem 10 mg tablet (Ambien) 10 mg PO QHS #30 tabs 07/29/21 08/09/22 triamcinolone acetonide 0.5 % 1 applic topical BID #15 grams 09/09/21 08/09/22 topical cream sertraline 25 mg tablet 100 mg PO HS 09/27/21 08/09/22 pantoprazole 40 mg tablet,delayed 40 mg PO DAILY #30 tabs 11/19/21 08/09/22 release (Protonix) estradiol 0.01% (0.1 mg/gram) 1 g vaginal .COMPLEX PRN Vaginal 03/11/22 08/09/22 vaginal cream atrophy #42.5 grams tramadol 50 mg tablet 50 mg PO BID PRN pain #30 tab-caps 04/04/22 08/09/22 inhalational spacing device #1 ea 04/07/22 08/09/22 (Aerochamber MV spacer) vitamin B complex-folic acid 0.4 1 tab PO DAILY #90 tabs 04/17/22 08/09/22 mg tablet (B Complex 1 (with folic acid)) loratadine 10 mg disintegrating 10 mg PO PRN PRN 05/14/22 08/09/22 tablet albuterol sulfate 90 mcg/actuation 2 puff inhalation Q6H PRN 06/24/22 08/09/22 aerosol inhaler shortness of breath or wheezing #6.7 grams Previous Rx's Medication Instructions Recorded acetaminophen 325 mg tablet 650 mg PO Q4H PRN PRN 04/01/16 (Tylenol) nystatin-triamcinolone 100,000 1 applic topical BID #30 grams 11/23/20 unit/g-0.1 % topical cream zolpidem 10 mg tablet (Ambien) 10 mg PO QHS #30 tabs 07/29/21 triamcinolone acetonide 0.5 % 1 applic topical BID #15 grams 09/09/21 topical cream pantoprazole 40 mg tablet,delayed 40 mg PO DAILY #30 tabs 11/19/21 release (Protonix) estradiol 0.01% (0.1 mg/gram) 1 g vaginal .COMPLEX PRN Vaginal 03/11/22 vaginal cream atrophy #42.5 grams tramadol 50 mg tablet 50 mg PO BID PRN pain #30 tab-caps 04/04/22 inhalational spacing device #1 ea 04/07/22 (Aerochamber MV spacer) vitamin B complex-folic acid 0.4 1 tab PO DAILY #90 tabs 04/17/22 mg tablet (B Complex 1 (with folic acid)) albuterol sulfate 90 mcg/actuation 2 puff inhalation Q6H PRN 06/24/22 aerosol inhaler shortness of breath or wheezing #6.7 grams Allergies Allergy/AdvReac Type Severity Reaction Status Date / Time No Known Allergies Allergy Verified 08/09/22 14:28 General Stated Complaint: DentalOral DEJUAN: 4 Review of Systems Narrative: 10 point review of systems is negative unless otherwise specified in the HPI PFSH All Active Problems (Updated 06/30/22 @ 14:15 by Konstantin Pleitez NP) Chronic pain syndrome (Acute 01/23/17) CONTROLLED SUBSTANCE AGREEMENT 07/21/2019 Antral gastritis (Acute) 01/18/15; DR. ADORNO COPD (chronic obstructive pulmonary disease) (Chronic) Diverticulosis of colon (Acute) Hernia, hiatal (Acute) Irritable bowel syndrome without diarrhea (Acute) Sleep apnea (Acute) ORAL APPLIANCE Abnormal myocardial perfusion study (Acute) Dyspnea (Acute) Exertional dyspnea (Acute) Chest tightness (Acute) Duodenitis (Acute) Diarrhea (Acute) Gastritis (Acute) Sleep apnea (Acute) GERD (gastroesophageal reflux disease) (Chronic) Elevated LFTs (Acute) BERMUDEZ (nonalcoholic steatohepatitis) (Acute) Esophagitis (Acute) Reflux esophagitis (Acute) Fatigue (Acute) Sore throat (Acute) Epigastric pain (Acute) Cough (Acute) Medical History Acute UTI Arthritis Bronchitis RE-CURRENT Chronic pain syndrome COPD (chronic obstructive pulmonary disease) Degenerative joint disease (DJD) of lumbar spine Depression Duodenal ulcer Exanthem due to varicella 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 Excised without incident. 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 superficial bilateral fissures on labia majora margins. Loss of balance Mass of vulva R david labia. Myopia (01/30/16) [facility] [place] Obstructive sleep apnea Oral lesion Pruritus Rimma's syndrome Right leg weakness Sensorineural hearing loss, bilateral (06/01/14) Trigger finger, left middle finger (04/22/17) Trochanteric bursitis, left hip Tubular adenoma of colon Vaginal dryness, menopausal fci use of vaginal E2. Vitamin B deficiency Vulvar atrophy (04/09/11) Xerosis of skin Surgical History EGD - MAC (02/21/20) 11/2021 DR.CHRIS ADORNO-01/2015 Dr. Rich- 02/2020- duodenal ulcer Extraction of cataract 08/22/15; LEFT EYE 09/05/15; RIGHT EYE History of appendectomy History of cataract removal with insertion of prosthetic lens (09/13/15) History of cataract surgery History of colonoscopy 2022 2011- Murali Adorno- normal History of colonoscopy with polypectomy History of esophagogastroduodenoscopy History of total knee arthroplasty LEFT TKA 04/28/16 Family History Mother No problems noted. Social History Smoking/Tobacco Use Status: Former Tobacco Use Quit Date: 05/11/90 Tobacco: How many years used: 30 Smoking risk assessment performed?: Yes Alcohol Intake: current Alcohol Intake frequency: 0-2 drinks per day Alcohol type: hard liquor Drug use: Never Substance use type: marijuana Current gender identity: female Do you feel safe at home: Yes Additional Social history: lives alone Female Reproductive History Menstrual Menopause type: natural (48yo) History History 0 Para Hx # Term Pregnancies Multiple births Hx # Pregnancies Ectopic pregnancies AB induced Hx Number of Living Children AB spontaneous Exam Narrative Exam Narrative: Awake alert calm no acute distress pleasant cooperative PERRL EOMI MMM anicteric Discrete swelling of the left cheek. Examination of the oral cavity does not reveal any drainable abscess. Cannot appreciate any gum swelling. Percussion of the teeth of the upper left does reproduce some discomfort. Supple neck Normal cap refill Normal work of breathing no dyspnea Skin no rashes Neuro 2 through 12 grossly intact Psych adequate mood and affect. Course Vital Signs Vital signs: Vital Signs Temperature 37.3 C 08/09/22 14:23 Pulse 74 08/09/22 14:23 Respiratory Rate 17 08/09/22 14:23 Blood Pressure 142/79 H 08/09/22 14:23 Pulse Oximetry 97 08/09/22 14:23 Temperature 37.3 C 08/09/22 14:23 Temperature Source Oral 08/09/22 14:23 Pulse 74 08/09/22 14:23 Respiratory Rate 17 08/09/22 14:23 Respiratory Effort Normal 08/09/22 14:26 Blood Pressure 142/79 H 08/09/22 14:23 Blood Pressure Position Sitting 08/09/22 14:23 Pulse Oximetry 97 08/09/22 14:23 Oxygen Delivery Method Room Air 08/09/22 14:23 Oxygen Flow Rate 0 08/09/22 14:23 Pain Level 7 08/09/22 14:26 PAWSS Have you Been Recently Intoxicated or Drunk Within the Last 30 days?: No Have you Ever Experienced Previous Episodes of Alcohol Withdrawal?: No Have you ever Experienced Withdrawal Seizures?: No Have you ever Experienced Delirium Tremens(DT)s?: No Have you ever undergone Alcohol Rehabilitation Treatment (i.e, inpt ot outpatient treatment programs)?: No Have you ever Experienced Blackouts?: No Have you ever Combined Alcohol with other Downers within the last 90 days?: No Have you ever Combined Alcohol with any other Substance of Abuse during the last 90 days?: No Result: 0
[2022-08-09] MEDS: Penicillin V POTASSIUM 500 MG TAB, 4 TABS/BTL PO (14:57)
[2022-08-09] MEDS: Penicillin V POTASSIUM 500 MG TAB 1000 MG PO (14:57)
== END 2022-08-09 14:58 | disposition home or self-care (01) ==
PROVIDERS: Emergency Provider Emergency Medicine; PCP Nurse Practitioner Family
DX: K12.2 Cellulitis and abscess of mouth (principal)
CPT/HCPCS: 99283

== ENCOUNTER → 2023-01-14 02:00 | Outpatient (CLI) | payer MEDICARE, SELFPAY ==
--- NOTE | 2023-01-14 07:45 | DI.RAD_ITS ---
Exam(s) XR CHEST 2V PA LATERAL EXAM: XR CHEST 2V PA LATERAL CLINICAL HISTORY: cough, ? PNEUMONIA,R05.9 TECHNIQUE: 2D digital imaging was performed of the chest. Two images were obtained. PA and lateral views were obtained. COMPARISON: CR XR CHEST 2V PA LATERAL from 06/30/2022 FINDINGS: MEDIASTINUM: Normal. HEART: Normal. PULMONARY VASCULATURE: Normal. There is tortuosity of the thoracic aorta. LUNGS: There are fibrotic changes again seen in the lungs. No superimposed infiltrates are seen. PLEURAL SPACE: No pleural effusion or pneumothorax. BONE:Within normal limits for the patient's age. OTHER FINDINGS:Normal. IMPRESSION: No acute pulmonary findings. DATA REPOSITORY: RADIATION DOSE DELIVERED:
== END ==
PROVIDERS: PCP Nurse Practitioner Family; Visit Provider Physician Assistant
DX: R05.9 Cough, unspecified (principal)
CPT/HCPCS: 71046

== ENCOUNTER 2023-01-20 14:08 | Outpatient (CLI) | payer MEDICARE, SELFPAY ==
--- NOTE | 2023-01-20 14:08 | RT.EKG_ITS ---
APPROVED REPORT Exam: Resting ECG Reason for Exam: chest discomfort Patient Location: O HR:71 bpm ECG Measurements Heart Rate 71 AXIS NV 201 P -23 QRSd 104 QRS -17 QT 430 T 13 QTc 468 Conclusion Sinus rhythm...normal P axis, V-rate 50- 99 Ventricular premature complex...V complex w/ short R-R interval Otherwise normal ECG
== END 2023-01-20 14:09 | disposition home or self-care (01) ==
LOC: DI.CM 14:08
PROVIDERS: PCP Nurse Practitioner Family; Visit Provider Nurse Practitioner Family
DX: R07.89 Other chest pain (principal)
CPT/HCPCS: 93010

== ENCOUNTER 2023-01-20 15:12 | Outpatient (REF) | payer MEDICARE, SELFPAY ==
[2023-01-20 21:20] LABS: Abs Immature Grans 0.01 10^3/uL (0.0-0.06); Absolute Basophil Count 0.06 10^3/uL (0.0-0.2); Absolute Eosinophil Count 0.24 10^3/uL (0.0-0.7); Absolute Monocyte Count 0.47 10^3/uL (0.1-0.8); Absolute Neutrophil Count 2.42 10^3/uL (1.2-6.7); Basophils % 1.1; Eosinophils % 4.5; HCT 37.4 % (36.0-46.0); HGB 13.3 g/dL (11.2-15.7); Immature Grans % 0.2; Lymphocytes % 39.6; MCH 33.4 pg (27.0-33.0); MCHC 35.6 % (32.0-36.0); MCV 94 fL (80-95); MPV 11.4 fL (8.0-11.0); Monocytes % 8.9; Neutrophils % 45.7; Platelet Count 186 10^3/uL (130-400); RBC 3.98 10^6/uL (3.93-5.22); RDW 13.7 % (11.7-14.6); RDW-SD 47.7 fL
[2023-01-20 21:30] LABS: ALT 35 U/L (14-59); AST 24 U/L (15-37); Albumin 3.8 g/dL (3.4-5.0); Alkaline Phosphatase 81 U/L (46-116); BUN 14 mg/dL (7-18); Bilirubin, Total 0.6 mg/dL (0.2-1.0); CREATININE 0.7 mg/dL (0.55-1.02); Calcium 8.9 mg/dL (8.5-10.1); Chloride 102 mmol/L (98-107); Estimated GFR 86.83 (mL/min/1.73m2); Glucose 112 mg/dL (74-106); Potassium 3.9 mmol/L (3.5-5.1); Sodium 138 mmol/L (136-145); Total Protein 7.4 g/dL (6.4-8.2)
== END 2023-01-20 15:13 | disposition home or self-care (01) ==
LOC: LBN 15:12
PROVIDERS: PCP Nurse Practitioner Family; Visit Provider Nurse Practitioner Family
DX: R53.83 Other fatigue (principal); K57.30 Diverticulosis of large intestine without perforation or abscess without bleeding; J06.9 Acute upper respiratory infection, unspecified; R06.09 Other forms of dyspnea
CPT/HCPCS: 80053; 85025

== ENCOUNTER 2023-02-12 11:30 | Outpatient (CLI) | payer MEDICARE, SELFPAY ==
[2023-02-12 15:37] LABS: HCT 37.8 % (36.0-46.0); MCH 32.9 pg (27.0-33.0); MCHC 34.4 % (32.0-36.0); MCV 96 fL (80-95); MPV 10.2 fL (8.0-11.0); Platelet Count 227 10^3/uL (130-400); RBC 3.95 10^6/uL (3.93-5.22); RDW 13.4 % (11.7-14.6); RDW-SD 47.6 fL; WBC 5.18 10^3/uL (4.4-10.8)
[2023-02-12 15:51] LABS: INR 0.9 (0.9-1.1); PTT Activated 23.4 sec (21.5-31.9); Prothrombin Time 9.6 sec (9.3-11.0)
[2023-02-12 16:51] LABS: ALT 43 U/L (14-59); AST 32 U/L (15-37); Albumin 3.8 g/dL (3.4-5.0); Alkaline Phosphatase 88 U/L (46-116); Anion Gap 10.5 mmol/L (3-11); BUN 17 mg/dL (7-18); Bilirubin, Total 0.4 mg/dL (0.2-1.0); CO2 23.5 mmol/L (21.0-32.0); CREATININE 0.9 mg/dL (0.55-1.02); Chloride 103 mmol/L (98-107); Estimated GFR 64.23 (mL/min/1.73m2); Glucose 117 mg/dL (74-106); Potassium 4.1 mmol/L (3.5-5.1); Sodium 137 mmol/L (136-145); Total Protein 7.8 g/dL (6.4-8.2)
== END 2023-02-12 11:31 | disposition home or self-care (01) ==
LOC: LBO 11:30
PROVIDERS: PCP Nurse Practitioner Family; Visit Provider Nurse Practitioner Family
DX: S05.11XA Contusion of eyeball and orbital tissues, right eye, initial encounter (principal); R07.89 Other chest pain; K57.30 Diverticulosis of large intestine without perforation or abscess without bleeding; X58.XXXA Exposure to other specified factors, initial encounter
CPT/HCPCS: 36415; 80053; 85027; 85610; 85730

== ENCOUNTER → 2023-02-12 11:37 | Outpatient (CLI) | payer MEDICARE, SELFPAY ==
--- NOTE | 2023-02-12 10:45 | DI.RAD_ITS ---
Exam(s) XR ORBITS EXAM: XR ORBITS CLINICAL HISTORY: evaluate fx,rt periorbital rim contusion,s05.10xa. TECHNIQUE: 2D digital imaging was performed. COMPARISON: No exams were available for comparison FINDINGS: Six views. There is no evidence of orbital fracture. No fluid in the maxillary sinuses. Bone density normal. No osseous lesions. Nasal bone appears intact. Mandible intact... IMPRESSION: No fractures identified. DATA REPOSITORY: RADIATION DOSE DELIVERED:
== END ==
PROVIDERS: PCP Nurse Practitioner Family; Visit Provider Nurse Practitioner Family
DX: S05.11XA Contusion of eyeball and orbital tissues, right eye, initial encounter (principal); X58.XXXA Exposure to other specified factors, initial encounter
CPT/HCPCS: 36415; 80053; 85027; 70200; 85610; 85730

== ENCOUNTER 2023-03-24 17:01 | Emergency (ER) | payer MEDICARE, SELFPAY ==
[2023-03-24 16:56] VITALS: BP 131/7; PULSE 73; RESP 18; O2SAT 97
--- NOTE | 2023-03-24 17:00 | DI.RAD_ITS ---
Exam(s) XR PORTABLE CHEST AP EXAM: XR PORTABLE CHEST AP CLINICAL HISTORY: presyncope. TECHNIQUE: 2D digital imaging was performed. COMPARISON: CR XR CHEST 2V PA LATERAL from 01/14/2023 FINDINGS: Single AP portable view. Heart size is upper normal. The mediastinum is not widened. Some interstitial disease is again noted bilaterally, consistent with element of probable pulmonary f ibrosis. No new confluent infiltrates. No pleural effusions. IMPRESSION: No acute pulmonary findings on this single AP portable view of the chest. Interstitial pulmonary fibrosis again noted. DATA REPOSITORY: RADIATION DOSE DELIVERED:
--- NOTE | 2023-03-24 17:00 | RT.EKG_ITS ---
APPROVED REPORT Exam: Resting ECG Reason for Exam: dizzy Patient Location: E HR:72 bpm ECG Measurements Heart Rate 72 AXIS AZ 190 P 16 QRSd 94 QRS 5 QT 428 T 66 QTc 470 Conclusion Sinus rhythm...normal P axis, V-rate 60- 99
[2023-03-24 17:04] VITALS: RESP 18
--- NOTE | 2023-03-24 17:07 | ED.GENADUL_ITS ---
Discharge Plan Disposition Patient Disposition: Home Condition: Good Discharge Details Chief Complaint: Dizzy/Sync Clinical Impression: Dizziness Primary Care Provider: [facility] ED Provider: Rafiq Gallagher Home Meds and New Rx's Prescriptions: No Action fluoxetine 40 mg capsule 40 mg PO DAILY Patient Comments: TAKE ONE CAPSULE BY MOUTH EVERY MORNING *DOSE INCREASE methylphenidate HCl [Ritalin] 10 mg tablet 10 mg PO DAILY PRN zolpidem [Ambien] 10 mg tablet 10 mg PO QHS Qty: 30 0RF (DME) Aerochamber MV Spacer See Rx Instructions .Route Qty: 1 0RF Rx Instructions: As directed nystatin-triamcinolone 100,000-0.1 unit/g-% cream 1 applic topical BID Qty: 60 2RF Rx Instructions: Apply to the vulva and groin folds twice daily for 2 weeks. estradiol 0.01 % (0.1 mg/gram) cream 1 g VG .COMPLEX PRN (Reason: Vaginal atrophy) Qty: 42.5 3RF Rx Instructions: 1 g vaginal 2-3x per week PRN; acetaminophen [Tylenol] 325 MG tablet 650 mg PO Q4H PRN PRN0RF pantoprazole [Protonix] 40 mg tablet,delayed release (DR/EC) 40 mg PO DAILY Qty: 30 12RF Discharge Instructions Instructions: Dizziness (ED) Additional Instructions: You were seen in the emergency department for dizziness. We performed labs, EKG, and chest x-ray and these were unremarkable. You were symptom-free and wanted to leave. The exact cause of your symptoms is not known. It is possible this could have represented vertigo. Follow-up with your primary care doctor about this visit. Return to the emergency department if you have any other concerns. Referrals: [facility], [employer] [Primary Care Provider] - 1 week Medical Decision Making 82-year-old female with fibromyalgia, COPD is now presenting with dizziness. This is since resolved. She was at the dentist but did not get any procedure. She has some poor dentition and a small tooth fell out in her left upper central incisor location. Is no bleeding in this area so I question whether that this was chronically loose and just came out with the grilled cheese finally as she was not eating any hard foods. I doubt that this is the cause of her dizziness. Her symptoms are fully resolved. It could be that this represented vertigo. She has no focal findings on exam or history to suggest an exact etiology. Will get EKG to look for dysrhythmia. Will check cardiac enzymes though doubt ACS and if unremarkable would not pursue the diagnosis further. Will get chest x- ray to look for pneumonia or pneumothorax. We will get broad labs look for electrolyte or metabolic causes of the patient's symptoms. Will check CBC to look for anemia. She is symptom-free now. Will await initial testing and reevaluate. 602pm EKG, labs, chest x-ray unremarkable. Patient still symptom-free and would like to leave. Unclear cause of her symptoms. May represent vertigo. Told her to follow-up with her primary. Will discharge with return precautions. Medical Records Medical records reviewed: Yes I reviewed the patient's medical records. Imaging Data Radiologic Study: Attestation: I personally reviewed and interpreted this imaging study as follows: Imaging: X-Ray (Chest) Radiologist's impression: Chest x-ray unremarkable Lab Data Lab results reviewed: Yes I reviewed the patient's lab results. ECG Data Attestation: I personally reviewed and interpreted this ECG (s) as follows: Prior ECG tracings: available for review Interpretation: Normal sinus rhythm and otherwise unremarkable EKG. No ST or T wave changes. Normal axis. HPI General Mode of arrival: EMS . Date/Time Provider Initiated Documentation: 03/24/23 17:06 . Limitations to Documentation: no limitations . Information obtained by: patient and EMS . HPI Narrative: 82-year-old female history of fibromyalgia, COPD not on home O2, multiple other chronic medical conditions is now presenting with dizziness. Apparently today at lunch was eating a grilled cheese sandwich. Apparently her left upper lateral incisor fell out when she bit into the grilled cheese. She has some poor dentition and has a dentist she follows with. Went to the dentist today and they actually had not done anything yet and she got some dizziness during their examination. She had some oxygen saturations at 90 to 92%. This improved on its own. She was still little dizzy so EMS was called. She had some nausea but the nausea and dizziness resolved with EMS without intervention. She is symptom-free now. Says nothing is bothering her. No chest pain or shortness of breath. No fever or cough. No belly pain and no further nausea. No vomiting. No diarrhea or constipation or any black or bloody stools. She denies any other complaints. Related Data Home Medications Medication Instructions Recorded Confirmed acetaminophen 325 mg tablet 650 mg (2 x 325 mg) PO Q4H PRN PRN 04/01/16 03/24/23 (Tylenol) methylphenidate HCl 10 mg tablet 10 mg PO DAILY PRN 06/21/21 03/24/23 (Ritalin) zolpidem 10 mg tablet (Ambien) 10 mg PO QHS #30 tabs 07/29/21 03/24/23 pantoprazole 40 mg tablet,delayed 40 mg PO DAILY #30 tabs 11/19/21 03/24/23 release (Protonix) inhalational spacing device #1 ea 04/07/22 01/13/23 (Aerochamber MV spacer) fluoxetine 40 mg capsule 40 mg PO DAILY 01/13/23 03/24/23 nystatin-triamcinolone 100,000 1 applic topical BID #60 grams 02/11/23 03/24/23 unit/g-0.1 % topical cream estradiol 0.01% (0.1 mg/gram) 1 g vaginal .COMPLEX PRN Vaginal 03/23/23 03/24/23 vaginal cream atrophy #42.5 grams Previous Rx's Medication Instructions Recorded acetaminophen 325 mg tablet 650 mg (2 x 325 mg) PO Q4H PRN PRN 04/01/16 (Tylenol) zolpidem 10 mg tablet (Ambien) 10 mg PO QHS #30 tabs 07/29/21 pantoprazole 40 mg tablet,delayed 40 mg PO DAILY #30 tabs 11/19/21 release (Protonix) inhalational spacing device #1 ea 04/07/22 (Aerochamber MV spacer) nystatin-triamcinolone 100,000 1 applic topical BID #60 grams 02/11/23 unit/g-0.1 % topical cream estradiol 0.01% (0.1 mg/gram) 1 g vaginal .COMPLEX PRN Vaginal 03/23/23 vaginal cream atrophy #42.5 grams Allergies Allergy/AdvReac Type Severity Reaction Status Date / Time No Known Allergies Allergy Verified 03/24/23 17:06 General Stated Complaint: Dizzy/Sync DEJUAN: 3 Review of Systems Constitutional Constitutional: Denies chills, Denies fever(s) and Denies headache(s) Eyes Eyes: Denies change in vision ENT Ears, Nose, Mouth, and Throat: Denies headache(s) and Denies odynophagia Cardiovascular Cardiovascular: Denies chest pain and Denies dyspnea Comments: dizzy Respiratory Respiratory: Denies dyspnea Gastrointestinal Gastrointestinal: Denies abdominal pain, Denies diarrhea, Reports nausea, Denies odynophagia and Denies vomiting Genitourinary Genitourinary: Denies dysuria Musculoskeletal Musculoskeletal: Denies myalgias Integumentary/Breasts Skin/Breast: Denies changing lesions Neurologic Neurologic: Denies behavioral changes and Denies headache(s) Psychiatric Psychiatric: Denies behavioral changes Endocrine Endocrine: Denies heat intolerance Hematologic/Lymphatic Hematologic/Lymphatic: Denies lymphadenopathy PFSH All Active Problems (Updated 03/24/23 @ 18:04 by Rafiq Gallagher MD) Dizziness (Acute) Yeast dermatitis (Acute) Chronic pain syndrome (Acute 01/23/17) CONTROLLED SUBSTANCE AGREEMENT 07/21/2019 Antral gastritis (Acute) 01/18/15; DR. ADORNO COPD (chronic obstructive pulmonary disease) (Chronic) Diverticulosis of colon (Acute) Hernia, hiatal (Acute) Irritable bowel syndrome without diarrhea (Acute) Sleep apnea (Acute) ORAL APPLIANCE Abnormal myocardial perfusion study (Acute) Dyspnea (Acute) Exertional dyspnea (Acute) Chest tightness (Acute) Duodenitis (Acute) Diarrhea (Acute) Gastritis (Acute) Sleep apnea (Acute) GERD (gastroesophageal reflux disease) (Chronic) Elevated LFTs (Acute) BERMUDEZ (nonalcoholic steatohepatitis) (Acute) Esophagitis (Acute) Reflux esophagitis (Acute) Fatigue (Acute) Sore throat (Acute) Epigastric pain (Acute) Cough (Acute) Medical History Tubular adenoma of colon Loss of balance Right leg weakness Lichen sclerosus et atrophicus of the vulva No loss of labial architecture. superficial bilateral fissures on labia majora margins. Pruritus Xerosis of skin Degenerative joint disease (DJD) of lumbar spine Trochanteric bursitis, left hip Duodenal ulcer Acute UTI Depression 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 Excised without incident. Benign pathology Mass of vulva R david labia. Vaginal dryness, menopausal nursing home use of vaginal E2. 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) Vitamin B deficiency Trigger finger, left middle finger (04/22/17) Sensorineural hearing loss, bilateral (06/01/14) Rimma's syndrome Myopia (01/30/16) [facility] Laryngopharyngeal reflux Irritable colon Insomnia (11/12/11) Increased body mass index Herpes, vulvar (10/21/11) Fibromyalgia she attributes much of her status to this disease will resume amitriptyline to see if it helps with sleep/function Bronchitis RE-CURRENT Arthritis Surgical History History of colonoscopy with polypectomy History of appendectomy History of colonoscopy 2022 2011- Murali Adorno- normal History of cataract removal with insertion of prosthetic lens (09/13/15) History of esophagogastroduodenoscopy History of total knee arthroplasty History of cataract surgery LEFT TKA 04/28/16 EGD - MAC (02/21/20) 11/2021 DR.CHRIS ADORNO-01/2015 Dr. Rich- 02/2020- duodenal ulcer Extraction of cataract 08/22/15; LEFT EYE 09/05/15; RIGHT EYE Family History Mother No problems noted. Social History Smoking/Tobacco Use Status: Former Tobacco Use Quit Date: 05/11/90 Tobacco: How many years used: 30 Smoking risk assessment performed?: Yes Alcohol Intake: current Alcohol Intake frequency: 0-2 drinks per day Alcohol type: hard liquor Drug use: Never Substance use type: does not use Current gender identity: female Do you feel safe at home: Yes Additional Social history: lives alone Female Reproductive History Menstrual Menopause type: natural (48yo) History History 0 Para Hx # Term Pregnancies Multiple births Hx # Pregnancies Ectopic pregnancies AB induced Hx Number of Living Children AB spontaneous Exam Const General: cooperative Nutritional Appearance: average body habitus Orientation: alert, awake and oriented x3 HENMT Head: normal to inspection Ears: external ears normal Mouth: moist mucous membranes Other: Poor dentition. Missing left upper lateral incisor. No bleeding from the area. Eyes Pupils: PERRL EOM: EOM intact bilaterally and No nystagmus Neck Neck: full ROM and no tracheal deviation Chest Chest: normal inspection of the chest Resp Auscultation: clear to auscultation bilaterally Cardio Rate: regular rate Rhythm: regular rhythm GI Inspection: normal to inspection Palpation: soft, no guarding, not rigid and nontender Back/Spine/Pelvis Back: No no CVA tenderness Thoracic/Lumbar Spine: thoracic and lumbar spine normal to inspection Skin General skin exam: no rashes or lesions noted Neuro General: patient alert, patient awake and patient oriented x3 Cranial Nerves: CN's II-XI intact bilaterally, PERRL and no nystagmus Cognition: normal cognition Motor: muscle tone normal throughout and strength 5/5 throughout Sensory Exam: no sensory deficits noted Extrem General: normal to inspection Course Vital Signs Vital signs: Vital Signs Pulse 73 03/24/23 16:56 Respiratory Rate 18 03/24/23 16:56 Blood Pressure 131/7 L 03/24/23 16:56 Pulse Oximetry 97 03/24/23 16:56 Pulse 73 03/24/23 16:56 Respiratory Rate 18 03/24/23 17:04 Respiratory Effort Normal 03/24/23 17:04 Respiratory Depth Normal 03/24/23 17:04 Respiratory Pattern Normal 03/24/23 17:04 Blood Pressure 131/7 L 03/24/23 16:56 Pulse Oximetry 97 03/24/23 16:56 Oxygen Delivery Method Room Air 03/24/23 16:56 Oxygen Flow Rate 0 03/24/23 16:56
[2023-03-24 17:28] LABS: Abs Immature Grans 0.01 10^3/uL (0.0-0.06); Absolute Basophil Count 0.04 10^3/uL (0.0-0.2); Absolute Eosinophil Count 0.19 10^3/uL (0.0-0.7); Absolute Lymphocyte Count 1.34 10^3/uL (1.2-3.4); Absolute Monocyte Count 0.62 10^3/uL (0.1-0.8); Absolute Neutrophil Count 4.39 10^3/uL (1.2-6.7); Basophils % 0.6; Eosinophils % 2.9; HCT 38.8 % (36.0-46.0); HGB 13.3 g/dL (11.2-15.7); Immature Grans % 0.2; Lymphocytes % 20.3; MCH 32.8 pg (27.0-33.0); MCHC 34.3 % (32.0-36.0); MCV 96 fL (80-95); MPV 9.9 fL (8.0-11.0); Monocytes % 9.4; Neutrophils % 66.6; Platelet Count 211 10^3/uL (130-400); RBC 4.05 10^6/uL (3.93-5.22); RDW 13.2 % (11.7-14.6); RDW-SD 46.4 fL; WBC 6.59 10^3/uL (4.4-10.8)
[2023-03-24 17:38] LABS: INR 1.1 (0.9-1.1); Prothrombin Time 10.7 sec (9.1-11.1)
[2023-03-24] MEDS: Normal Saline 500 ML IV (17:46)
[2023-03-24 17:48] LABS: ALT 36 U/L (14-59); AST 27 U/L (15-37); Albumin 3.6 g/dL (3.4-5.0); Alkaline Phosphatase 74 U/L (46-116); Anion Gap 9.7 mmol/L (3-11); BUN 19 mg/dL (7-18); Bilirubin, Total 0.7 mg/dL (0.2-1.0); CO2 25.3 mmol/L (21.0-32.0); CREATININE 0.9 mg/dL (0.55-1.02); Calcium 9.9 mg/dL (8.5-10.1); Chloride 104 mmol/L (98-107); Estimated GFR 64.23 (mL/min/1.73m2); Glucose 124 mg/dL (74-106); Magnesium 1.8 mg/dL (1.8-2.4); Potassium 3.5 mmol/L (3.5-5.1); Sodium 139 mmol/L (136-145); Total Protein 7.5 g/dL (6.4-8.2); Troponin I < 50 ng/L (<or=60)
== END 2023-03-24 18:11 | disposition home or self-care (01) ==
LOC: ER 18:05
PROVIDERS: Emergency Provider Student in an Organized Health Care Education/Training Program; PCP Nurse Practitioner Family
DX: R42 Dizziness and giddiness (principal); R55 Syncope and collapse; J44.9 Chronic obstructive pulmonary disease, unspecified; Z79.899 Other long term (current) drug therapy; Z96.652 Presence of left artificial knee joint; M79.7 Fibromyalgia
CPT/HCPCS: 80053; 93005; 99285; 71045; 83735; 84484; 85025; 85610; 93010

== ENCOUNTER 2023-04-16 19:09 | Emergency (ER) | payer MEDICARE, SELFPAY ==
[2023-04-16 19:13] VITALS: BP 166/100; PULSE 84; RESP 16; TEMP 36.4; O2SAT 96
--- NOTE | 2023-04-16 19:15 | RT.EKG_ITS ---
APPROVED REPORT Exam: Resting ECG Reason for Exam: anxiety, not feeling right Patient Location: E HR:83 bpm ECG Measurements Heart Rate 83 AXIS AL 200 P 72 QRSd 95 QRS 91 QT 407 T 37 QTc 480 Conclusion Sinus rhythm...normal P axis, V-rate 60- 99 Right axis deviation...QRS axis ( 91,269) Low voltage, precordial leads...precordial leads <1.0mV sinus rhythm, normal axis, normal intervals, non ischemic
--- NOTE | 2023-04-16 19:15 | DI.CT_ITS ---
Exam(s) CT HEAD WO EXAM: CT HEAD WO CLINICAL HISTORY: feels confused, htn. TECHNIQUE: Imaging Protocol: Axial computed tomography images with coronal and sagittal reformatted images were created and reviewed COMPARISON: CT CT HEAD WO from 09/27/2021 FINDINGS: There are no skull fractures. There is no fluid in the visualized paranasal sinuses. There is no evidence of intracranial hemorrhage, mass effect, or shift of midline structures. There are no extra-axial fluid collections. The ventricles are not enlarged or shifted and there is no blo od within the ventricular system nor within the basal cisterns. Symmetrical atrophy again noted. Mild bilateral periventricular hypodensity consistent with chronic small vessel disease also appears unchanged IMPRESSION: No acute intracranial findings on this noninfused CT scan of the brain. Symmetrical atrophy again evident. RADIATION DOSE DELIVERED: Total DLP DATA REPOSITORY: All CT scans at this facility are submitted to the National Radiology Data Registry (NRDR) Dose Index Registry (DIR) with the [employer] (A[employer]). RADIATION OPTIMIZATION: All CT scans at this facility use at least one of these dose optimization te chniques: automated exposure control; mA and/or kV adjustment per patient size (includes targeted exa ms where dose is matched to clinical indication); or iterative reconstruction.
--- NOTE | 2023-04-16 19:26 | ED.GENADUL_ITS ---
Discharge Plan Disposition Patient Disposition: Home Condition: Improving Discharge Details Chief Complaint: GenMedical Clinical Impression: Altered mental status Primary Care Provider: [facility] Provider: Austin Mcmanus Home Meds and New Rx's Prescriptions: No Action fluoxetine 40 mg capsule 40 mg PO DAILY Patient Comments: TAKE ONE CAPSULE BY MOUTH EVERY MORNING *DOSE INCREASE methylphenidate HCl [Ritalin] 10 mg tablet 10 mg PO DAILY PRN (DME) Aerochamber MV Spacer See Rx Instructions .Route Qty: 1 0RF Rx Instructions: As directed nystatin-triamcinolone 100,000-0.1 unit/g-% cream 1 applic topical BID Qty: 60 2RF Rx Instructions: Apply to the vulva and groin folds twice daily for 2 weeks. zolpidem [Ambien] 10 mg tablet 10 mg PO QHS Qty: 30 0RF albuterol sulfate 90 mcg/actuation HFA aerosol inhaler 2 inh inhalation Q6H PRN (Reason: shortness of breath or wheezing) Qty: 18 1RF olmesartan 5 mg tablet 5 mg PO DAILY Qty: 90 0RF estradiol 0.01 % (0.1 mg/gram) cream 1 g VG .COMPLEX PRN (Reason: Vaginal atrophy) Qty: 42.5 3RF Rx Instructions: 1 g vaginal 2-3x per week PRN; acetaminophen [Tylenol] 325 MG tablet 650 mg PO Q4H PRN PRN0RF pantoprazole [Protonix] 40 mg tablet,delayed release (DR/EC) 40 mg PO DAILY Qty: 30 12RF Discharge Instructions Instructions: Altered Mental Status (ED) Additional Instructions: Please follow-up with your primary care physician Medical Decision Making 82-year-old female history of COPD insomnia, anxiety, hypertension presents with anxiety felt slightly confused this evening, does endorse drinking some alcohol at home, no change in speech no weakness numbness or balance issues, alert oriented no signs of trauma afebrile nontoxic nonmeningeal. Resting comfortably no acute distress. Consider anxiety reaction versus electrolyte derangement versus viral syndrome versus migraine versus polypharmacy versus alcohol intoxication lower suspicion for traumatic injury CVA encephalitis or encephalopathy. Screening labs and imaging close reassessment likely home with close follow-up 21: 22 patient resting comfortably no acute distress. Alert oriented. Labs and imaging unremarkable. Patient feels much better than on arrival. Attempting to coordinate ride home consider CT versus EMS versus neighbor HPI General Date/Time Provider Initiated Documentation: 04/16/23 19:10 . HPI Narrative: 82-year-old female history of COPD, insomnia, hypertension and anxiety presents feeling anxious and slightly confused at home this evening. Patient lives alone. Denies weakness trouble speaking falls or injury. Does endorse drinking some alcohol this evening Related Data Home Medications Medication Instructions Recorded Confirmed acetaminophen 325 mg tablet 650 mg (2 x 325 mg) PO Q4H PRN PRN 04/01/16 04/16/23 (Tylenol) methylphenidate HCl 10 mg tablet 10 mg PO DAILY PRN 06/21/21 04/16/23 (Ritalin) pantoprazole 40 mg tablet,delayed 40 mg PO DAILY #30 tabs 11/19/21 04/16/23 release (Protonix) inhalational spacing device #1 ea 04/07/22 04/16/23 (Aerochamber MV spacer) fluoxetine 40 mg capsule 40 mg PO DAILY 01/13/23 04/16/23 nystatin-triamcinolone 100,000 1 applic topical BID #60 grams 02/11/23 04/16/23 unit/g-0.1 % topical cream estradiol 0.01% (0.1 mg/gram) 1 g vaginal .COMPLEX PRN Vaginal 03/23/23 04/16/23 vaginal cream atrophy #42.5 grams albuterol sulfate 90 mcg/actuation 2 inh inhalation Q6H PRN shortness 04/07/23 04/16/23 aerosol inhaler of breath or wheezing #18 grams olmesartan 5 mg tablet 5 mg PO DAILY #90 tabs 04/07/23 04/16/23 zolpidem 10 mg tablet (Ambien) 10 mg PO QHS #30 tabs 04/07/23 04/16/23 Previous Rx's Medication Instructions Recorded acetaminophen 325 mg tablet 650 mg (2 x 325 mg) PO Q4H PRN PRN 04/01/16 (Tylenol) pantoprazole 40 mg tablet,delayed 40 mg PO DAILY #30 tabs 11/19/21 release (Protonix) inhalational spacing device #1 ea 04/07/22 (Aerochamber MV spacer) nystatin-triamcinolone 100,000 1 applic topical BID #60 grams 10/04/23 unit/g-0.1 % topical cream estradiol 0.01% (0.1 mg/gram) 1 g vaginal .COMPLEX PRN Vaginal 03/23/23 vaginal cream atrophy #42.5 grams albuterol sulfate 90 mcg/actuation 2 inh inhalation Q6H PRN shortness 04/07/23 aerosol inhaler of breath or wheezing #18 grams olmesartan 5 mg tablet 5 mg PO DAILY #90 tabs 04/07/23 zolpidem 10 mg tablet (Ambien) 10 mg PO QHS #30 tabs 04/07/23 Allergies Allergy/AdvReac Type Severity Reaction Status Date / Time No Known Allergies Allergy Verified 04/16/23 19:39 General Stated Complaint: GenMedical DEJUAN: 3 Review of Systems Narrative: Review of Systems Constitutional: negative Eyes: negative ENT: negative Cardiovascular: negative Respiratory: negative Gastrointestinal: negative : negative Musculoskeletal: negative Skin: negative Neurologic: Confusion Psych: negative PFSH All Active Problems (Updated 04/16/23 @ 21:24 by Austin Mcmanus MD) Altered mental status (Acute) Insomnia (Acute 11/12/11) using Zolpidem for 30 years now Memory changes (Acute) Dizziness (Acute) Yeast dermatitis (Acute) Chronic pain syndrome (Acute 01/23/17) CONTROLLED SUBSTANCE AGREEMENT 07/21/2019 Antral gastritis (Acute) 01/18/15; DR. ADORNO COPD (chronic obstructive pulmonary disease) (Chronic) Diverticulosis of colon (Acute) Hernia, hiatal (Acute) Irritable bowel syndrome without diarrhea (Acute) Sleep apnea (Acute) does not use any appliance Abnormal myocardial perfusion study (Acute) Dyspnea (Acute) Exertional dyspnea (Acute) Chest tightness (Acute) Duodenitis (Acute) Gastritis (Acute) GERD (gastroesophageal reflux disease) (Chronic) using OTC omeprazole and tums Elevated LFTs (Acute) BERMUDEZ (nonalcoholic steatohepatitis) (Acute) Esophagitis (Acute) Reflux esophagitis (Acute) Fatigue (Acute) Medical History (Updated 04/16/23 @ 21:24 by Austin Mcmanus MD) Cough Epigastric pain Sore throat Diarrhea Tubular adenoma of colon Loss of balance Right leg weakness Lichen sclerosus et atrophicus of the vulva No loss of labial architecture. superficial bilateral fissures on labia majora margins. Pruritus Xerosis of skin Degenerative joint disease (DJD) of lumbar spine Trochanteric bursitis, left hip Duodenal ulcer Acute UTI Depression 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 Excised without incident. Benign pathology Mass of vulva R david labia. Vaginal dryness, menopausal emt intermediate use of vaginal E2. 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) Vitamin B deficiency Trigger finger, left middle finger (04/22/17) Sensorineural hearing loss, bilateral (06/01/14) Rimma's syndrome Myopia (01/30/16) [facility] [place] Laryngopharyngeal reflux Irritable colon Increased body mass index Herpes, vulvar (10/21/11) Fibromyalgia she attributes much of her status to this disease will resume amitriptyline to see if it helps with sleep/function Bronchitis RE-CURRENT Arthritis Surgical History History of colonoscopy with polypectomy History of appendectomy History of colonoscopy 2022 2011- Murali Adorno- normal History of cataract removal with insertion of prosthetic lens (09/13/15) History of esophagogastroduodenoscopy History of total knee arthroplasty History of cataract surgery LEFT TKA 04/28/16 EGD - MAC (02/21/20) 11/2021 DR.CHRIS ADORNO-01/2015 Dr. Rich- 02/2020- duodenal ulcer Extraction of cataract 08/22/15; LEFT EYE 09/05/15; RIGHT EYE Family History Mother No problems noted. Social History (Updated 04/14/23 @ 08:24 by Hien Ma) Smoking/Tobacco Use Status: Former Tobacco Use tobacco type: cigarettes Quit Date: 05/11/90 Tobacco: How many years used: 30 Second Hand Exposure: Yes Smoking risk assessment performed?: Yes Alcohol Intake: current Alcohol Intake frequency: a few times a week Alcohol type: hard liquor Drug use: Never Substance use type: does not use Adopted: No Caregiver/Support person: No Foster care: No Housing: house Number of Children: 2 number of grandchildren: 5 Communication Needs: Hard of Hearing Do you need help understanding health information?: Rarely current occupation: retired Pets and animals: No Sexually active: No Do you think of yourself as: straight/heterosexual Current gender identity: female How often do you talk on the phone with friends or family?: three or more times per week Do you belong to any clubs or organized social groups?: no Panel score (0-1 are the most socially isolated patients): 1 What type of physical activity do you participate in: swimming Duration: 15-30 minutes/day Frequency: 1-2 times per week Agree to transfusion: Yes Seatbelt use: always Helmet use: No Drive intox 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 Working smoke detector in home: Yes Firearms in home: No Do you feel safe at home: Yes Do you feel safe in your relationship?: Yes Victim of physical abuse: No Victim of emotional abuse: No Victim of sexual abuse: No Additional Social history: lives alone Female Reproductive History Menstrual Menopause type: natural (48yo) History History 0 Para Hx # Term Pregnancies Multiple births Hx # Pregnancies Ectopic pregnancies AB induced Hx Number of Living Children AB spontaneous Exam Narrative Exam Narrative: Physical Examination General: alert, awake, cooperative, resting comfortably, no acute distress HEENT: normocephalic, atraumatic; PERRL, EOM intact, conjunctiva normal; no nasal discharge; moist mucous membranes, oral and pharyngeal mucosa normal, tolerating secretions Neck: supple, trachea midline; full ROM Chest: normal to inspection Respiratory: normal respiratory effort, speaking in full sentences, clear to auscultation, no wheezing, rales or rhonchi Cardiac: regular rate, regular rhythm, S1S2 intact, no murmurs rubs or gallops GI: abdomen soft, non-tender, non-distended; no palpable mass or hepatosplenomegaly Skin: no lesions, rashes or trauma appreciated Neuro: AAOx3, normal speech, moving all extremities; cranial nerves II through XII intact, 5 out of 5 strength upper and lower extremities, no truncal ataxia Psych: Appropriate mood and affect Course Vital Signs Vital signs: Vital Signs Temperature 36.4 C L 04/16/23 19:13 Pulse 84 04/16/23 19:13 Respiratory Rate 16 04/16/23 19:13 Blood Pressure 166/100 H 04/16/23 19:13 Pulse Oximetry 96 04/16/23 19:13 Temperature 36.4 C L 04/16/23 19:13 Temperature Source Tympanic 04/16/23 19:13 Pulse 84 04/16/23 19:13 Respiratory Rate 16 04/16/23 19:13 Blood Pressure 166/100 H 04/16/23 19:13 Blood Pressure Position Supine 04/16/23 19:13 Pulse Oximetry 96 04/16/23 19:13 Oxygen Delivery Method Room Air 04/16/23 19:13 Oxygen Flow Rate 0 04/16/23 19:13 Pain Level 0 04/16/23 19:13
[2023-04-16 19:59] LABS: Abs Immature Grans 0.02 10^3/uL (0.0-0.06); Absolute Basophil Count 0.04 10^3/uL (0.0-0.2); Absolute Lymphocyte Count 1.65 10^3/uL (1.2-3.4); Absolute Monocyte Count 0.42 10^3/uL (0.1-0.8); Absolute Neutrophil Count 3.66 10^3/uL (1.2-6.7); Basophils % 0.7; Eosinophils % 3.3; HCT 39.2 % (36.0-46.0); HGB 13.6 g/dL (11.2-15.7); Immature Grans % 0.3; Lymphocytes % 27.5; MCH 33.3 pg (27.0-33.0); MCHC 34.7 % (32.0-36.0); MCV 96 fL (80-95); Neutrophils % 61.2; Platelet Count 207 10^3/uL (130-400); RBC 4.09 10^6/uL (3.93-5.22); RDW 13.3 % (11.7-14.6); RDW-SD 46.8 fL; WBC 5.99 10^3/uL (4.4-10.8)
[2023-04-16] MEDS: Ondansetron 4 MG/2 ML VIAL IVP (20:15)
[2023-04-16 20:17] LABS: ALT 59 U/L (14-59); Albumin 3.3 g/dL (3.4-5.0); Alkaline Phosphatase 84 U/L (46-116); Anion Gap 9.7 mmol/L (3-11); BUN 12 mg/dL (7-18); Bilirubin, Total 0.5 mg/dL (0.2-1.0); CO2 25.3 mmol/L (21.0-32.0); CREATININE 0.9 mg/dL (0.55-1.02); Calcium 8.9 mg/dL (8.5-10.1); Chloride 106 mmol/L (98-107); Estimated GFR 64.23 (mL/min/1.73m2); Glucose 121 mg/dL (74-106); Potassium 3.3 mmol/L (3.5-5.1); Sodium 141 mmol/L (136-145); Total Protein 7.1 g/dL (6.4-8.2)
[2023-04-16 20:18] LABS: ETHANOL BLOOD < 3.0 mg/dL (<10)
--- NOTE | 2023-04-16 20:37 | DI.VRAD_ITS ---
PROCEDURE INFORMATION: Exam: CT Head Without Contrast Exam date and time: 04/16/2023 8:18 PM Age: 82 years old Clinical indication: Other: Confusion, HTN TECHNIQUE: Imaging protocol: Computed tomography of the head without contrast. COMPARISON: CT HEAD WO 09/27/2021 6:50 PM FINDINGS: Brain: Moderate volume loss No hemorrhage.Mild white matter disease. No mass effect. Cerebral ventricles: No ventriculomegaly. Paranasal sinuses: Visualized sinuses are unremarkable. No fluid levels. Mastoid air cells: Visualized mastoid air cells are well aerated. Bones/joints: Unremarkable. No acute fracture. Soft tissues: Unremarkable. IMPRESSION: No acute intracranial hemorrhage noted Dictated and Authenticated by: Randy Lord MD. Ordering:SURJIT Avila MD
[2023-04-16 21:00] LABS: AST 36 U/L (15-37)
[2023-04-16 21:32] VITALS: RESP 22
[2023-04-16 21:36] VITALS: BP 171/75; PULSE 90; RESP 19; TEMP 36; O2SAT 96
== END 2023-04-16 21:59 | disposition home or self-care (01) ==
PROVIDERS: Emergency Provider Emergency Medicine; PCP Nurse Practitioner Family
DX: F41.9 Anxiety disorder, unspecified (principal); R41.82 Altered mental status, unspecified; J44.9 Chronic obstructive pulmonary disease, unspecified; I10 Essential (primary) hypertension; Z79.899 Other long term (current) drug therapy; Z87.891 Personal history of nicotine dependence
CPT/HCPCS: 36415; 80053; 93005; 96374; 99284; 70450; 80320; 85025; 93010; 99283; J2405

== ENCOUNTER 2023-09-16 17:39 | Outpatient (CLI) | payer MEDICARE, SELFPAY ==
[2023-09-16 16:57] LABS: Abs Immature Grans 0.02 10^3/uL (0.0-0.06); Absolute Basophil Count 0.04 10^3/uL (0.0-0.2); Absolute Eosinophil Count 0.16 10^3/uL (0.0-0.7); Absolute Lymphocyte Count 1.51 10^3/uL (1.2-3.4); Absolute Monocyte Count 0.44 10^3/uL (0.1-0.8); Basophils % 0.6 %; Eosinophils % 2.6 %; HCT 36.9 % (36.0-46.0); HGB 12.5 g/dL (11.2-15.7); Immature Grans % 0.3 %; Lymphocytes % 24.5 %; MCH 31.2 pg (27.0-33.0); MCHC 33.9 % (32.0-36.0); MCV 92 fL (80-95); MPV 10.1 fL (8.0-11.0); Monocytes % 7.1 %; Neutrophils % 64.9 %; Platelet Count 195 10^3/uL (130-400); RBC 4.01 10^6/uL (3.93-5.22); RDW 13.1 % (11.7-14.6); RDW-SD 44.2 fL; WBC 6.17 10^3/uL (4.4-10.8)
[2023-09-16 17:50] LABS: ALT 19 U/L (14-59); AST 13 U/L (15-37); Albumin 3.6 g/dL (3.4-5.0); Alkaline Phosphatase 73 U/L (46-116); Anion Gap 10.9 mmol/L (3-11); BUN 17 mg/dL (7-18); Bilirubin, Total 0.6 mg/dL (0.2-1.0); CO2 24.1 mmol/L (21.0-32.0); CREATININE 0.8 mg/dL (0.55-1.02); Calcium 9.1 mg/dL (8.5-10.1); Chloride 106 mmol/L (98-107); Estimated GFR 73.98 (mL/min/1.73m2); Folate 6.5 ng/mL (8.6-20.0); Glucose 108 mg/dL (74-106); Sodium 141 mmol/L (136-145); TSH (W/Ref FT4) 1.18 uIU/mL (0.36-3.74); Total Protein 7.1 g/dL (6.4-8.2); Vitamin B12 232 pg/mL (193-986)
== END 2023-09-16 17:40 | disposition home or self-care (01) ==
LOC: LBO 17:47
PROVIDERS: Visit Provider Nurse Practitioner Family
DX: R53.83 Other fatigue (principal)
CPT/HCPCS: 36415; 80053; 82607; 82746; 84443; 85025

== ENCOUNTER 2023-10-30 13:28 | Outpatient (REF) | payer MEDICARE, SELFPAY ==
[2023-10-30 16:22] LABS: Abs Immature Grans 0.02 10^3/uL (0.0-0.06); Absolute Basophil Count 0.05 10^3/uL (0.0-0.2); Absolute Eosinophil Count 0.17 10^3/uL (0.0-0.7); Absolute Lymphocyte Count 1.65 10^3/uL (1.2-3.4); Absolute Monocyte Count 0.42 10^3/uL (0.1-0.8); Absolute Neutrophil Count 3.33 10^3/uL (1.2-6.7); Basophils % 0.9 %; HCT 40.7 % (36.0-46.0); HGB 13.7 g/dL (11.2-15.7); Immature Grans % 0.4 %; Lymphocytes % 29.3 %; MCH 31.2 pg (27.0-33.0); MCHC 33.7 % (32.0-36.0); MCV 93 fL (80-95); MPV 11.1 fL (8.0-11.0); Monocytes % 7.4 %; Platelet Count 173 10^3/uL (130-400); RBC 4.39 10^6/uL (3.93-5.22); RDW 13.7 % (11.7-14.6); RDW-SD 46.2 fL; WBC 5.64 10^3/uL (4.4-10.8)
[2023-10-30 16:33] LABS: Iron 80 ug/dL (50-170); Total Iron Binding Capacity 328 ug/dL (250-450); Transferrin Sat 24 % (15-50)
[2023-10-30 16:59] LABS: ALT 22 U/L (14-59); AST 16 U/L (15-37); Albumin 3.8 g/dL (3.4-5.0); Alkaline Phosphatase 58 U/L (46-116); BUN 16 mg/dL (7-18); Bilirubin, Total 0.88 mg/dL (0.2-1.0); CREATININE 0.8 mg/dL (0.55-1.02); Calcium 9.2 mg/dL (8.5-10.1); Chloride 102 mmol/L (98-107); Estimated GFR 73.98 (mL/min/1.73m2); Ferritin 114 ng/mL (8-252); Folate 4.1 ng/mL (8.6-20.0); Glucose 112 mg/dL (74-106); Potassium 3.9 mmol/L (3.5-5.1); Sodium 138 mmol/L (136-145); TSH (W/Ref FT4) 2.51 uIU/mL (0.36-3.74); Vitamin B12 142 pg/mL (193-986)
== END 2023-10-30 13:29 | disposition home or self-care (01) ==
LOC: NCHCN 13:28
PROVIDERS: Visit Provider Family Medicine
DX: R53.83 Other fatigue (principal); R41.3 Other amnesia; R79.89 Other specified abnormal findings of blood chemistry
CPT/HCPCS: 80053; 82607; 82728; 82746; 83540; 83550; 84443; 85025

== ENCOUNTER → 2025-04-18 14:49 | Outpatient (CLI) | payer MEDICARE, SELFPAY ==
--- NOTE | 2025-04-18 | DI.RAD_ITS ---
Exam(s) XR CHEST 2V PA LATERAL EXAM: XR CHEST 2V PA LATERAL CLINICAL HISTORY: COMMUNITY ACQUIRED PNEUMONIA RT LOWER LOBE LUNG, J18.9 TECHNIQUE: 2D digital imaging was performed. Two views. COMPARISON: CR XR CHEST 2V PA LATERAL from 01/14/2023 FINDINGS: HEART: Mildly enlarged. Aorta: Tortuous. PULMONARY VASCULATURE: Normal. MEDIASTINUM: Unremarkable. LUNGS: question of streaky densities at the right lung base versus overlying structures. PLEURAL SPACE: No pleural effusion or pneumothorax. BONE:Unremarkable for age. SOFT TISSUES: Unremarkable. IMPRESSION: Question of a right basilar infiltrate versus overlying structures. DATA REPOSITORY: RADIATION DOSE DELIVERED:
== END ==
LOC: DI 14:50
PROVIDERS: Visit Provider Family Medicine
DX: J18.9 Pneumonia, unspecified organism (principal)
CPT/HCPCS: 71046

== ENCOUNTER 2025-04-28 14:53 | Outpatient (REF) | payer MEDICARE, SELFPAY ==
[2025-04-28 15:37] LABS: Abs Immature Grans 0.03 10^3/uL (0.0-0.06); HCT 40.4 % (36.0-46.0); HGB 13.8 g/dL (11.2-15.7); Immature Grans % 0.4 %; MCH 32.7 pg (27.0-33.0); MCHC 34.2 % (32.0-36.0); MCV 96 fL (80-95); MPV 10.8 fL (8.0-11.0); Platelet Count 294 10^3/uL (130-400); RBC 4.22 10^6/uL (3.93-5.22); RDW 13.1 % (11.7-14.6); RDW-SD 46.3 fL; WBC 7.13 10^3/uL (4.4-10.8)
[2025-04-28 15:44] LABS: ALT 29 U/L (10-49); AST 30 U/L (<34); Albumin 4.4 g/dL (3.2-5.0); Alkaline Phosphatase 70 U/L (46-116); Anion Gap 11.1 mmol/L (3-11); BUN 16 mg/dL (9-23); Bilirubin, Total 1.2 mg/dL (0.2-1.2); CO2 24.9 mmol/L (20.0-31.0); Calcium 9.6 mg/dL (8.3-10.6); Chloride 103 mmol/L (98-107); Glucose 110 mg/dL (74-106); Potassium 4.3 mmol/L (3.5-5.1); Sodium 139 mmol/L (136-145); Total Protein 7.5 g/dL (5.7-8.2)
[2025-04-28 15:47] LABS: Vitamin D 25 Total 24 ng/mL (30-100)
[2025-04-28 15:48] LABS: TSH (W/Ref FT4) 2.51 uIU/mL (0.55-4.78); Vitamin B12 267 pg/mL (211-911)
[2025-04-28 15:49] LABS: Ferritin 129 ng/mL (7-271)
== END 2025-04-28 14:54 | disposition home or self-care (01) ==
LOC: NCHCN 14:53
PROVIDERS: Visit Provider Family Medicine
DX: R53.83 Other fatigue (principal)
CPT/HCPCS: 80053; 82306; 82607; 82728; 84443; 85025

== ENCOUNTER → 2025-05-01 01:01 | Outpatient (CLI) | payer MEDICARE, SELFPAY ==
--- NOTE | 2025-05-01 | DI.RAD_ITS ---
Exam(s) XR CHEST 2V PA LATERAL EXAM: XR CHEST 2V PA LATERAL CLINICAL HISTORY: PNEUMONIA,J18.9 TECHNIQUE: 2D digital imaging was performed of the chest. Three images were obtained. PA and lateral views were obtained. COMPARISON: CR XR CHEST 2V PA LATERAL from 01/14/2023 CR XR PORTABLE CHEST AP from 03/24/2023 CR XR CHEST 2V PA LATERAL from 04/18/2025 FINDINGS: MEDIASTINUM: Normal. HEART: Normal. PULMONARY VASCULATURE: Normal. LUNGS: There are no focal consolidating infiltrates. There mildly prominent interstitial markings throughout the lungs which appear chronic and may represent pulmonary fibrosis. PLEURAL SPACE: No pleural effusion or pneumothorax. BONE:Within normal limits for the patient's age. OTHER FINDINGS:Normal. IMPRESSION: No acute pulmonary findings. DATA REPOSITORY: RADIATION DOSE DELIVERED:
== END ==
PROVIDERS: Visit Provider Family Medicine
DX: J18.9 Pneumonia, unspecified organism (principal)
CPT/HCPCS: 71046

== ENCOUNTER → 2025-05-03 13:36 | Outpatient (CLI) | payer MEDICARE, SELFPAY ==
--- NOTE | 2025-05-03 | DI.RAD_ITS ---
Exam(s) XR HIP RT COMPLETE AP PELVIS EXAM: XR HIP RT COMPLETE AP PELVIS CLINICAL HISTORY: PAIN RT HIP M25.551. TECHNIQUE: 2D digital imaging was performed of the right hip. Two images were obtained. AP pelvis and lateral right hip views were obtained. COMPARISON: CR XR HIP LT COMPLETE AP PELVIS from 04/09/2020 FINDINGS: BONES: No acute fracture is present. No bony destructive lesion is seen. JOINTS: No dislocation present. There is asymmetric joint space narrowing noted in the right hip. Similar asymmetric joint space narrowing is also noted in the left hip. There are degenerative changes in the lumbar spine which are moderate. There are mild degenerative changes seen at the sacroiliac joints. The symphysis pubis is unremarkable. SOFT TISSUE: Normal. IMPRESSION: [id number] degenerative changes seen in the right hip. DATA REPOSITORY: RADIATION DOSE DELIVERED:
== END ==
PROVIDERS: Visit Provider Family Medicine
DX: M25.551 Pain in right hip (principal); M16.11 Unilateral primary osteoarthritis, right hip
CPT/HCPCS: 73502